=== PATIENT | female | born 1945 | race African-American/Black ===

== ENCOUNTER 2016-05-01 08:59 | Emergency (ER) | payer OTHER ==
[2016-05-01 09:18] VITALS: BP 90/54; PULSE 76; TEMP 98.2; BMI 18.8
--- NOTE | 2016-05-01 09:28 | PDOC ---
History of Present Illness - General Chief Complaint: Pain Stated Complaint: ANKLE Injury Time Seen by Provider: 05/01/16 09:14 History Source: Patient Exam Limitations: No Limitations - History of Present Illness Initial Comments: CHIEF COMPLAINT: 70 y/o afebrile female with PMH HTN, HLD, chronic pain, CAD with stents (on plavix) c/o left ankle pain. HISTORY OF PRESENT ILLNESS: The patient states she fell 3 days ago and her left ankle hit the floor. She can walk but she has pain on the outside of her left ankle. she denies swelling, f/c, redness to affected area. Vital signs on arrival are notable for BP of 90/54 REVIEW OF SYSTEMS: GENERAL/CONSTITUTIONAL: No fever/chills. No weakness. No weight change. HEAD, EYES, EARS, NOSE AND THROAT: No change in vision. No ear pain or discharge. No sore throat. MUSCULOSKELETAL: +left ankle pain. No neck or back pain. SKIN: No rash or easy bruising. NEUROLOGIC: No headache, vertigo, loss of consciousness, or loss of sensation. PHYSICAL EXAM: VITAL_SIGNS: within normal limits GENERAL_APPEARANCE: alert, cooperative, mild obvious discomfort with ambulation. The patient is able to ambulate with a slight limp. MENTAL_STATUS: speech clear, oriented X 3, responds appropriately to questions. NEURO: motor intact and sensory intact in injured extremity. EXTREMITIES: 2+ dorsalis pedis pulse left foot. Full flexion, extension, eversion and inversion of left ankle. Small ecchymotic area to left lateral malleolus that is TTP. No obvious deformities, swelling or erythema to affected foot/ankle. SKIN: warm, dry, good color. Past History - Past Medical History Allergies/Adverse Reactions: Allergies Allergy/AdvReac Type Severity Reaction Status Date / Time metoclopramide HCl AdvReac Verified 05/01/16 09:07 [From [facility]] Home Medications: Ambulatory Orders Ranitidine [Zantac -] 150 mg PO BID 04/23/15 FENTANYL 75mcg PATCH [DURAGESIC 75mcg PATCH -] 1 each TD Q72H 05/18/15 Oxycodone HCl [Oxycontin] 10 mg PO BID PRN 05/18/15 Mirtazapine [Remeron -] 15 mg PO DAILY #30 tablet 05/26/16 Zolpidem Tartrate [Ambien] 5 mg PO HS #30 tablet MDD 1 07/26/15 Aspirin [ASA -] 81 mg PO DAILY #30 tab.chew 12/06/15 Atazanavir Sulfate/Cobicistat [Evotaz 300 mg-150 mg Tablet] 1 each PO DAILY #30 tablet 12/06/15 Atorvastatin Ca [Lipitor] 20 mg PO HS #30 tablet 12/06/15 Carvedilol 3.125 mg PO BID #60 tablet 12/06/15 Clopidogrel Bisulfate [Plavix -] 75 mg PO DAILY #30 tablet 12/06/15 Dolutegravir Sodium [Tivicay] 50 mg PO DAILY #30 tablet 12/06/15 Gabapentin [Neurontin] 600 mg PO TID #90 tablet 12/06/15 Lisinopril 5 mg PO DAILY #30 tablet 12/06/15 Nicotine Patch [Nicoderm Patch -] 1 patch TD DAILY #42 patch 12/06/15 Wheat Dextrin [Benefiber] 2 scoop PO DAILY #1 bottle 03/06/16 Cyproheptadine [Periactin -] 4 mg PO HS #30 tablet 03/07/16 Anemia: No Asthma: No Cancer: No Cardiac Disorders: Yes (CAD, TRIPLE BYPASS) CVA: No COPD: No CHF: No Dementia: No Diabetes: No GI Disorders: Yes (GASTRITIS) Disorders: No HTN: Yes Hypercholesterolemia: Yes HIV: Yes Liver Disease: No Suicide Attempt (Hx): No Seizures: No Thyroid Disease: No - Surgical History Abdominal Surgery: No Appendectomy: No Cardiac Surgery: Yes (CABG 2009, TRIPLE BYPASS) Cholecystectomy: No Lung Surgery: No Neurologic Surgery: No Orthopedic Surgery: No - Immunization History Immunization Up to Date: Yes - Psycho/Social/Smoking Cessation Hx Anxiety: No Suicidal Ideation: No Smoking Status: Yes Smoking History: Current every day smoker Have you smoked in the past 12 months: Yes Number of Cigarettes Smoked Daily: 6 If you are a former smoker, when did you quit?: 2 MONTHS AGO Cigars Per Day: 0 Information on smoking cessation initiated: No 'Breaking Loose' booklet given: 05/19/15 Hx Alcohol Use: No Drug/Substance Use Hx: No Substance Use Type: None Hx Substance Use Treatment: No *Physical Exam - Vital Signs Last Vital Signs Temp Pulse Resp BP Pulse Ox 98.2 F 76 18 90/54 99 05/01/16 09:08 05/01/16 09:08 05/01/16 09:08 05/01/16 09:08 05/01/16 09:08 Medical Decision Making - Medical Decision Making A/P: 70 y/o female with possible bone bruise to left lateral malleolus. The patient takes many narcotics daily for pain so will not add any pain medication to her regimen. Will give ISAAC bandage and supportive care instructions. Will provide patient with referral to Ortho and instructed her to f/u in 1-2 weeks if no improvement in symptoms. The patient verbalizes understanding of all instructions, has no further questions and is awaiting discharge. *DC/Admit/Observation/Transfer Diagnosis at time of Disposition: Contusion of ankle Qualifiers: Encounter type: initial encounter Laterality: left Qualified Code(s): S90.02XA - Contusion of left ankle, initial encounter Traumatic ecchymosis of left ankle Qualifiers: Encounter type: initial encounter Qualified Code(s): S90.02XA - Contusion of left ankle, initial encounter - Discharge Dispostion Disposition: HOME Condition at time of disposition: Good - Referrals Referrals: Rolly Catalan MD [Staff Physician] - - Patient Instructions Printed Discharge Instructions: DI for Ankle Pain, How To Perform RICE (Rest, Ice, Compress, Elevate) Additional Instructions: Discharge Instructions: -Use ISAAC bandage as needed for support -Follow RICE instructions -Follow up with Dr. Catalan in 1-2 weeks if no improvement in symptoms
== END 2016-05-01 10:27 | disposition home or self-care (01) ==
LOC: JER 08:59
DX: S90.02XA Contusion of left ankle, initial encounter (principal); W19.XXXA Unspecified fall, initial encounter; Y93.89 Activity, other specified; Y92.89 Other specified places as the place of occurrence of the external cause; I25.10 Atherosclerotic heart disease of native coronary artery without angina pectoris; I10 Essential (primary) hypertension; Z95.1 Presence of aortocoronary bypass graft; Z95.5 Presence of coronary angioplasty implant and graft; E78.5 Hyperlipidemia, unspecified
CPT/HCPCS: 99281-25

== ENCOUNTER 2016-11-24 18:02 | Inpatient (IN) | payer OTHER ==
[2016-11-24] MEDS ORDERED: SODIUM CHLORIDE 1,000 ML IV STA ×2 (18:31→19:54)
[2016-11-24] MEDS ORDERED: ASPIRIN 81 MG CHEWABLE TABLETS PO ONE (18:31)
--- NOTE | 2016-11-24 18:31 | PDOC ---
History of Present Illness <Tamica Peter - Last Filed: 11/25/16 02:02> <Helena Peña - Last Filed: 11/25/16 02:08> - General Chief Complaint: Blood Pressure Problem Stated Complaint: BLOOD PRESSURE PROBLEM - History of Present Illness Initial Comments: 11/24/16 21:16 The patient is a 71 year old female, with a significant past medical history of CAD s/p CABG triple bypass, hypertension, HIV positive, who presents to the emergency department with persistent headache and right calf pain for 1 week with new onset of intermittent pain under her left breast today. The patient describes the pain in her right lower extremity as throbbing localized to the posterior right calf and anterior right rayo. She reports her headache as constant, behind her eyes radiating to the back of her head. She states she has been intermittently experiencing black spots when her headaches increase in intensity. Secondarily, she reports some diarrhea today and pain to her rectum which she attributes to internal hemorrhoids. She denies chest pain, shortness of breath, headache and dizziness. She denies fever, chills, nausea, vomit, diarrhea and constipation. She denies dysuria, frequency, urgency and hematuria. Allergies: NKDA Past surgical history: right breast biopsy, tubal ligation, stents to bilateral lower extremities PCP - Dr. Polanco Vascular - Dr. Boo Gifford Certifier - Dr. Susy Bowens (Helena Peña) Past History - Past Medical History Anemia: No Asthma: No Cancer: No Cardiac Disorders: Yes (triple bypass) CVA: No COPD: No CHF: No Dementia: No Diabetes: No GI Disorders: Yes (GASTRITIS) Disorders: No HTN: Yes Hypercholesterolemia: Yes Liver Disease: No Seizures: No Thyroid Disease: No - Surgical History Abdominal Surgery: No Appendectomy: No Cardiac Surgery: Yes (CABG 2009, TRIPLE BYPASS) Cholecystectomy: No Lung Surgery: No Neurologic Surgery: No Orthopedic Surgery: No - Immunization History Immunization Up to Date: Yes - Suicide/Smoking/Psychosocial Hx Smoking Status: Yes Smoking History: Current every day smoker Have you smoked in the past 12 months: Yes Number of Cigarettes Smoked Daily: 6 If you are a former smoker, when did you quit?: 2 MONTHS AGO Cigars Per Day: 0 Information on smoking cessation initiated: No 'Breaking Loose' booklet given: 05/19/15 Hx Alcohol Use: No Drug/Substance Use Hx: No Substance Use Type: None Hx Substance Use Treatment: No <Tamica Peter - Last Filed: 11/25/16 02:02> <Helena Peña - Last Filed: 11/25/16 02:08> - Past Medical History Allergies/Adverse Reactions: Allergies Allergy/AdvReac Type Severity Reaction Status Date / Time metoclopramide HCl AdvReac Verified 11/24/16 18:08 [From [facility]] Home Medications: Ambulatory Orders FENTANYL 75mcg PATCH [DURAGESIC 75mcg PATCH -] 1 each TD Q72H 05/18/15 Ranitidine [Zantac -] 150 mg PO BID #30 tab 06/19/16 Aspirin [ASA -] 81 mg PO DAILY #30 tab.chew 10/02/16 Atazanavir Sulfate/Cobicistat [Evotaz 300 mg-150 mg Tablet] 1 each PO DAILY #30 tablet 10/02/16 Carvedilol 3.125 mg PO BID #60 tablet 10/02/16 Clopidogrel Bisulfate [Plavix -] 75 mg PO DAILY #30 tablet 10/02/16 Dolutegravir Sodium [Tivicay] 50 mg PO DAILY #30 tablet 10/02/16 Gabapentin [Neurontin] 600 mg PO TID #90 tablet 10/02/16 Lisinopril 5 mg PO DAILY #30 tablet 10/02/16 Valacyclovir HCl [Valtrex -] 500 mg PO BID #60 tablet 10/02/16 Atorvastatin Ca [Lipitor] 40 mg PO HS #30 tablet 10/09/16 Cardiac Specific PMH - Complaint Specific PMHX Pacemaker: No <Tamica Peter - Last Filed: 11/25/16 02:02> Review of Systems <Tamica Peter - Last Filed: 11/25/16 02:02> - Review of Systems Able to Perform ROS?: Yes <Helena Peña - Last Filed: 11/25/16 02:08> - Review of Systems Comments:: 11/24/16 21:16 CONSTITUTIONAL: Absent: fever, chills, diaphoresis, generalized weakness, malaise, loss of appetite HEENT: Absent: rhinorrhea, nasal congestion, throat pain, throat swelling, difficulty swallowing, mouth swelling, ear pain, eye pain, visual Changes CARDIOVASCULAR: (+) pain under left breast. Absent: syncope, palpitations, irregular heart rate , lightheadedness, peripheral edema RESPIRATORY: Absent: cough, shortness of breath, dyspnea with exertion, orthopnea, wheezing, stridor, hemoptysis GASTROINTESTINAL: (+) diarrhea and painful hemorrhoids. Absent: abdominal pain, abdominal distension, nausea, vomiting, constipation, melena, hematochezia GENITOURINARY: Absent: dysuria, frequency, urgency, hesitancy, hematuria, flank pain, genital pain MUSCULOSKELETAL: (+) Right calf pain. Absent: arthralgia, joint swelling SKIN: Absent: rash, itching, pallor HEMATOLOGIC/IMMUNOLOGIC: Absent: easy bleeding, easy bruising, lymphadenopathy, frequent infections ENDOCRINE: Absent: unexplained weight gain, unexplained weight loss, heat intolerance, cold intolerance NEUROLOGIC: (+) headache, Absent: focal weakness or paresthesias, dizziness, unsteady gait, seizure, mentalvstatus changes, bladder or bowel incontinence PSYCHIATRIC: Absent: anxiety, depression, suicidal or homicidal ideation, hallucinations. (Helena Peña) *Physical Exam <Tamica Peter - Last Filed: 11/25/16 02:02> <Helena Peña - Last Filed: 11/25/16 02:08> - Vital Signs Last Vital Signs Temp Pulse Resp BP Pulse Ox 99.7 F H 70 16 92/58 100 11/24/16 19:41 11/24/16 23:09 11/24/16 23:09 11/24/16 23:09 11/24/16 23:09 - Physical Exam Comments: 11/24/16 21:18 GENERAL: Well developed, well nourished. Awake and alert. No acute distress. HEENT: Normocephalic, atraumatic. PERRLA, EOMI. No conjunctival pallor. Sclera are non- icteric. Moist mucous membranes. Oropharynx is clear. NECK: Supple. Full ROM. No JVD. Carotid pulses 2+ and symmetric, without bruits. No thyromegaly. No lymphadenopathy. CARDIOVASCULAR: Regular rate and rhythm. No murmurs, rubs, or gallops. Distal pulses are 2+ and symmetric. PULMONARY: No evidence of respiratory distress. Lungs clear to auscultation bilaterally. No wheezing, rales or rhonchi. ABDOMINAL: Soft. Non-tender. Non-distended. No rebound or guarding. No organomegaly. Normoactive bowel sounds. MUSCULOSKELETAL Normal range of motion at all joints. No bony deformities or tenderness. No CVA tenderness. EXTREMITIES: No cyanosis. No clubbing. No edema. No calf tenderness. SKIN: Warm and dry. Normal capillary refill. No rashes. No jaundice. NEUROLOGICAL: Alert, awake, appropriate. Cranial nerves 2-12 intact. Normoreflexic in the upper and lower extremities. Normal speech. Toes are down-going bilaterally. Gait is normal without ataxia. PSYCHIATRIC: Cooperative. Good eye contact. Appropriate mood and affect. (Helena Peña) ED Treatment Course - LABORATORY CBC & Chemistry Diagram: 11/24/16 19:10 11/24/16 18:46 <Tamica Peter - Last Filed: 11/25/16 02:02> - LABORATORY CBC & Chemistry Diagram: 11/24/16 19:10 11/24/16 18:46 <Helena Peña - Last Filed: 11/25/16 02:08> - ADDITIONAL ORDERS Additional order review: Laboratory Results 11/24/16 11/24/16 11/24/16 18:46 18:46 18:46 PT with INR 11.90 H INR 1.08 Sodium 138 Potassium 4.5 Chloride 106 Carbon Dioxide 24 Anion Gap 8 BUN 62 H D Creatinine 3.5 H D Creat Clearance w eGFR 12.91 Random Glucose 103 D Calcium 8.7 Magnesium 2.8 H D Total Bilirubin 0.9 D AST 29 D ALT 19 D Alkaline Phosphatase 65 Creatine Kinase 818 H Creatine Kinase Index 1.0 CK-MB (CK-2) 8.559 H Troponin I < 0.02 B-Natriuretic Peptide 334.85 H Total Protein 7.1 Albumin 3.5 Triglycerides 116 Cholesterol 126 D Total LDL Cholesterol 59 HDL Cholesterol 55 D Urine Color Yellow Urine Appearance Slcloudy Urine pH 5.0 Urine Protein Negative Urine Glucose (UA) Negative Urine Ketones Negative Urine Blood 1+ H Urine Nitrite Negative Urine Bilirubin Negative Urine Urobilinogen 4.0 e.u/dl H Urine RBC 2 Urine WBC 3 Ur Epithelial Cells Rare Urine Bacteria Rare Hyaline Casts 34 Urine Mucus Rare 11/24/16 19:10 RBC 3.48 L MCV 90.6 MCHC 34.4 RDW 14.3 MPV 7.5 Neutrophils % 66.6 D Lymphocytes % 14.8 D Monocytes % 15.2 H Eosinophils % 3.0 Basophils % 0.4 - RADIOLOGY Radiograph Interpretation: 11/25/16 02:08 Referring Physician: SAJI COCHRAN Patient Name: JENNA MENEZES THIS IS A PRELIMINARY REPORT FROM [facility] IMAGES: 168 EXAM DATE AND TIME: 2016-11-24 23:46:37 EXAM: CT HEAD WITHOUT CONTRAST No acute brain parenchymal abnormality. No hemorrhage, mass or acute territorial infarct. Age-related involutional changes and chronic small vessel ischemic changes. Minimal mucoperiosteal thickening paranasal sinuses. Visualized mastoid air cells clear. Vee Borrego M.D. 11/25/2016 01:00 EST (Helena Peña) - Medications Given in the ED: ED Medications Discontinued Medications Generic Name Dose Route Start Last Admin Trade Name Freq PRN Reason Stop Dose Admin Aspirin 162 mg 11/24/16 18:31 11/24/16 20:46 Asa - PO 11/24/16 18:32 162 mg ONCE ONE Administration Sodium Chloride 1,000 mls @ 1,000 mls/hr 11/24/16 18:31 11/24/16 19:00 Normal Saline - IV 11/24/16 19:30 1,000 mls/hr ASDIR STA Administration Sodium Chloride 1,000 mls @ 1,000 mls/hr 11/24/16 19:54 11/24/16 20:46 Normal Saline - IV 11/24/16 20:53 1,000 mls/hr ASDIR STA Administration Medical Decision Making <Tamica Peter - Last Filed: 11/25/16 02:02> <Helena Peña - Last Filed: 11/25/16 02:08> - Medical Decision Making 11/24/16 23:24 71-year-old female brought in by ambulance from home for headache, seeing floaters, and fleeting left chest pain. Upon arrival, her systolic blood pressure was 72. She describes the left-sided chest pain was fleeting and sharp. It is gone at this time. She reviewed review of systems he denied fever or chills or abdominal pain or shortness of breath Past medical history significant for coronary artery disease, CABG in 2009, HIV , diagnosed about 25 years ago with undetectable viral load I spoke with her infectious disease doctor, Dr. Villavicencio. The patient has not been placed on any new medications. Also she said her allergy nurse DR SUSY BOWENS did recent ECHO and stress test. I called him and spoke to Dr Lucas Hale who was covering. He didnt know the pt an d will have to get results from office Patient's rectal temp 99.7. EKG was normal sinus rhythm at 86 bpm with inverted T waves in V1 and V2 This is compared to an EKG done 06/18/2014 and there were no significant changes. In reviewing her labs, CBC is unremarkable. WBC is 9.5, hemoglobin 10.8 and her platelets were normal at 277,000 His review of her chemistries that she now has acute renal failure with a creatinine of 3.5, BUN of 62. In reviewing prior labs. Her last creatinine was 1.1 Her electrolytes are within normal limits and liver function tests are within normal limits. Her troponin is negative at 0.02 When I informed the pt that she needed to be admitted the patient she became somewhat emotional because she has custody of her grandchildren ages 17, 14, 6 and 5 years old. She was concerned about their care, but she was able to enlist another family member to take care of them and get them to school in the morning ct scan of head- no acute intracranial pahology 11/25/16 02:02 (Tamica Peter) 11/24/16 22:26 Dr. Polanco was paged via phone answering service at this time requesting a call back for doctor to doctor consult 11/24/16 23:17 Dr. Susy Bowens, Certifier, was paged via phone answering service at this time requesting a call back for doctor to doctor consult. 11/25/16 00:16 Dr. Hale, cardiology, returned the call at 00:10 and the patient's case was discussed. (Helena Peña) *DC/Admit/Observation/Transfer - Discharge Dispostion Admit: Yes <Tamica Peter - Last Filed: 11/25/16 02:02> <Helena Peña - Last Filed: 11/25/16 02:08> Diagnosis at time of Disposition: hiv positive, neuropathy Chest pain Qualifiers: Chest pain type: unspecified Qualified Code(s): R07.9 - Chest pain, unspecified Acute renal failure Qualifiers: Acute renal failure type: unspecified Qualified Code(s): N17.9 - Acute kidney failure, unspecified - Attestations Scribe Attestion: 11/24/16 21:19 Documentation prepared by Helena Peña, acting as medical stenographer for Tamica Peter MD (Helena Peña)
[2016-11-24 19:20] LABS: BASOPHIL 0.4 % (0-2.0); MCH 31.2 pg (25.7-33.7); MCHC 34.4 g/dl (32.0-36.0); MEAN CELL VOLUME 90.6 fl (80-96); MEAN PLT VOLUME 7.5 fl (7.5-11.1); NEUTROPHILS 66.6 % (42.8-82.8); PLATELET COUNT 277 K/MM3 (134-434); RDW 14.3 % (11.6-15.6); WHITE BLOOD COUNT 9.5 K/mm3 (4.0-10.0)
[2016-11-24 19:33] LABS: INR 1.08 (0.82-1.09); PROTHROMBIN TIME (PATIENT) 11.9 SEC (9.98-11.88)
[2016-11-24] MEDS ORDERED: LIDOCAINE HCL 2% JELLY 10 ML CARTRIDGE ONE (20:05)
[2016-11-24 20:07] LABS: ALBUMIN 3.5 g/dl (3.4-5.0); ANION GAP 8 (8-16); BILIRUBIN,TOTAL 0.9 mg/dL (0.2-1.0); CALCIUM 8.7 mg/dL (8.5-10.1); CHOLESTEROL 126 mg/dL (50-200); CO2 24 mmol/L (21-32); CREATININE 3.5 mg/dL (0.55-1.02); GLUCOSE,RANDOM 103 mg/dL (74-106); MAGNESIUM 2.8 mg/dL (1.8-2.4); SGOT/AST 29 U/L (15-37); TOT PROT 7.1 g/dl (6.4-8.2)
[2016-11-24 20:11] LABS: ALK PHOS 65 U/L (45-117); CPK 818 IU/L (26-192); SGPT/ALT 19 U/L (12-78); TROPONIN I < 0.02 ng/ml (0.00-0.05)
[2016-11-24] MEDS: LIDOCAINE HCL 2% JELLY 10 ML CARTRIDGE PR PRN (20:12)
[2016-11-24] MEDS ORDERED: ASPIRIN 81 MG CHEWABLE TABLETS ONE (20:41)
[2016-11-24 22:51] LABS: URINE APPEARANCE SLCLOUDY; URINE BILIRUBIN NEGATIVE (NEGATIVE); URINE BLOOD 1+ (NEGATIVE); URINE COLOR YELLOW; URINE GLUCOSE (UA) NEGATIVE (NEGATIVE); URINE KETONE NEGATIVE (NEGATIVE); URINE NITRITE NEGATIVE (NEGATIVE); URINE PROTEIN NEGATIVE (NEGATIVE); URINE UROBILINOGEN 4.0 E.U/dl mg/dL (0.2-1.0)
[2016-11-24 23:03] LABS: URINE LEUK ESTERASE 1+ (NEGATIVE)
[2016-11-24 23:17] LABS: URINE BACTERIA RARE /hpf (NONE SEEN); URINE HYALINE CAST 34 /lpf; URINE MUCUS RARE; URINE RBC 2 /hpf (0-3); URINE WBC 3 /hpf (3-5)
--- NOTE | 2016-11-25 00:26 | PN ---
Teaching Attending Note Name of Resident: Alpesh Kumar ATTENDING PHYSICIAN STATEMENT I saw and evaluated the patient. I reviewed the resident's note and discussed the case with the resident. I agree with the resident's findings and plan as documented. SUBJECTIVE: 71 yo F with pmhx of CAD s/p CABG triple bypass, PVD, HTN, HIv + on HAART, who presents with headache and "floaters" in her eye. Also with R. calf pain X1 week. P. states she had complete loss of vision momentarily yesterday and the it came back. Also, notes decreased oral intake of fluids and decreased urination. No current headache, chest pain or pressure. No Visual changes currently. OBJECTIVE: Physical: VS: Vital Signs Period Temp Pulse Resp BP Sys/Dupont Pulse Ox Last 24 Hr 99.1 F-99.7 F 70-90 16-18 72-92/35-58 98-100 GEN: NAD, Resting in bed, AA0X3, Able to speak full sentences HEENT: NCAT, PERRL, Throat without erythema or exudates CARD: I/ ARTIE, RRR S1, S2 RESP: CTAB ABD: BSX4, NTD to palpation EXT: - C/C/E, RLE +1 DP, LLE +2 DP NEURO: CN II-XII intact, MS+5/5 Bilat. U/Lext, Sensation intact. CBCD WBC 9.5 K/mm3 (4.0-10.0) D 11/24/16 19:10 RBC 3.48 M/mm3 (3.60-5.2) L 11/24/16 19:10 Hgb 10.8 GM/dL (10.7-15.3) D 11/24/16 19:10 Hct 31.5 % (32.4-45.2) L 11/24/16 19:10 MCV 90.6 fl (80-96) 11/24/16 19:10 MCHC 34.4 g/dl (32.0-36.0) 11/24/16 19:10 RDW 14.3 % (11.6-15.6) 11/24/16 19:10 Plt Count 277 K/MM3 (134-434) D 11/24/16 19:10 MPV 7.5 fl (7.5-11.1) 11/24/16 19:10 CMP Sodium 138 mmol/L (136-145) 11/24/16 18:46 Potassium 4.5 mmol/L (3.5-5.1) 11/24/16 18:46 Chloride 106 mmol/L (98-107) 11/24/16 18:46 Carbon Dioxide 24 mmol/L (21-32) 11/24/16 18:46 Anion Gap 8 (8-16) 11/24/16 18:46 BUN 62 mg/dL (7-18) H D 11/24/16 18:46 Creatinine 3.5 mg/dL (0.55-1.02) H D 11/24/16 18:46 Creat Clearance w eGFR 12.91 (>60) 11/24/16 18:46 Random Glucose 103 mg/dL (74-106) D 11/24/16 18:46 Calcium 8.7 mg/dL (8.5-10.1) 11/24/16 18:46 Total Bilirubin 0.9 mg/dL (0.2-1.0) D 11/24/16 18:46 AST 29 U/L (15-37) D 11/24/16 18:46 ALT 19 U/L (12-78) D 11/24/16 18:46 Alkaline Phosphatase 65 U/L (45-117) 11/24/16 18:46 Total Protein 7.1 g/dl (6.4-8.2) 11/24/16 18:46 Albumin 3.5 g/dl (3.4-5.0) 11/24/16 18:46 CARDIAC ENZYMES Creatine Kinase 818 IU/L (26-192) H 11/24/16 18:46 Troponin I < 0.02 ng/ml (0.00-0.05) 11/24/16 18:46 CT HEAD- EKG: ASSESSMENT AND PLAN: 71 F with pmhx of CAD s/p CABG, HTN, HIV on HAART, who presents with floaters in eye, CASTILLO, and right calf pain, being admitted for acute renal failure and possible TIA 1.) Headache with visual defecit DDx: TIA, complex migraine, less likley RArt occlusion - CT HEAD- Pending - ESR - Lipid panel - ECHO/Carotid US - If normal neuro berumen consider optho consult 2.) Acute Renal Failure - Possibly due to decreased po intake - U lytes - Renal US, if no improvement - Nephro consult - IVF- Gentle - Avoid Nephrotoxins- HOLD Sly-I 3.) Chest Pain/Hx of CAD s/p CABG- ATYPICAL - HEART 5 - Trend Trop/EKG - Hold BB and SLY-I 4.) Hypotension - Hold Anti-HTN meds for now 5.) RLE Pain - Duplex RLE 6.) HIV on HAART - ID consult for resumption 7.) DVT Ppx - Low Risk - SCD Place in Med-Tele
[2016-11-25] MEDS ORDERED: SODIUM CHLORIDE 1,000 ML IV SCH (02:15)
[2016-11-25] MEDS ORDERED: FLU VACCINE QUAD 60 MCG/0.5 ML (MDV 17-18) IM ONE (02:29)
[2016-11-25 02:30] VITALS: BMI 21.3
[2016-11-25 02:36] LABS: CPK 747 IU/L (26-192); TROPONIN I < 0.02 ng/ml (0.00-0.05)
--- NOTE | 2016-11-25 02:45 | HP ---
CHIEF COMPLAINT: Chest pain, right leg pain, headache, and visual changes. PCP: Dr. Polanco HISTORY OF PRESENT ILLNESS: Pt is a 71F with PMH CAD (s/o CABG x3), HTN, peripheral vascular disease (s/p stenting by Dr. Gifford), HIV (stable for the last 25yrs), and internal hemorrhoids who presented to the ED complaining of chest pain, right leg pain, headache, and visual changes. The patient's chest pain began yesterday, was sharp in character, located beneath the left breast, was not severe, not related to activity or breathing, and it resolved completely. Pt states it did not feel at all like the pain she felt with her previous heart disease. The patient's headache began about 3 days ago. It occurs randomly throughout the day, starts behind her right eye, and extends backward. The pain is 6/10 and associated with mild photophobia. It is not associated with nausea, vomiting , or fever. The patient's visual changes began around the same time as the headaches, though the two do not necessarily coincide. She began seeing dark spots floating in her visual field intermittently for the last three days. Yesterday, she experienced a brief complete loss of vision. Her vision returned soon thereafter, and has been fine since that time. The patient's right leg pain began approximately 1 week ago. It is sharp and burning, and strongly related to walking. Pt states she can walk a few blocks before getting pain. She gets the pain every time she walks farther than a few blocks, and she never gets this pain otherwise. The pain subsides with rest. ER course was notable for: (1) Head CT (results pending), EKG (unchanged from previous) (2) Tn neg x1, Hypotension (74/39 ), PINO (BUN 62 Mica Splitter 3.5 baseline 1) (3) Recent Travel: denies PAST MEDICAL HISTORY: CAD (s/o CABG x3), HTN, peripheral vascular disease, HIV (stable for the last 25yrs), and internal hemorrhoids PAST SURGICAL HISTORY: Social History: Smoking: Denies Alcohol: Denies Drugs: Denies Family History: Denies Allergies metoclopramide HCl [From Reglan] Adverse Reaction (Verified 11/24/16 18:08) SEVERE EXTRA PYRAMIDAL REACTIONS HOME MEDICATIONS: Home Medications Medication Instructions Recorded FENTANYL 75mcg PATCH [DURAGESIC 1 each TD Q72H 05/18/15 75mcg PATCH -] Ranitidine [Zantac -] 150 mg PO BID #30 tab 06/19/16 Aspirin [ASA -] 81 mg PO DAILY #30 tab.chew 10/02/16 Atazanavir Sulfate/Cobicistat 1 each PO DAILY #30 tablet 10/02/16 [Evotaz 300 mg-150 mg Tablet] Carvedilol 3.125 mg PO BID #60 tablet 10/02/16 Clopidogrel Bisulfate [Plavix -] 75 mg PO DAILY #30 tablet 10/02/16 Dolutegravir Sodium [Tivicay] 50 mg PO DAILY #30 tablet 10/02/16 Gabapentin [Neurontin] 600 mg PO TID #90 tablet 10/02/16 Lisinopril 5 mg PO DAILY #30 tablet 10/02/16 Valacyclovir HCl [Valtrex -] 500 mg PO BID #60 tablet 10/02/16 Atorvastatin Ca [Lipitor] 40 mg PO HS #30 tablet 10/09/16 REVIEW OF SYSTEMS CONSTITUTIONAL: 30lb unintentional weight loss in the last year Absent: fever, chills, diaphoresis, generalized weakness, malaise, loss of appetite, HEENT: rhinorrhea, nasal congestion, visual changes Absent: , throat pain, throat swelling, difficulty swallowing, mouth swelling, ear pain, eye pain, CARDIOVASCULAR: chest pain Absent: , syncope, palpitations, irregular heart rate, lightheadedness, peripheral edema RESPIRATORY: Absent: cough, shortness of breath, dyspnea with exertion, orthopnea, wheezing, stridor, hemoptysis GASTROINTESTINAL: Absent: abdominal pain, abdominal distension, nausea, vomiting, diarrhea, constipation, melena, hematochezia GENITOURINARY: dysuria, hesitancy Absent: , frequency, urgency,, hematuria, flank pain, genital pain MUSCULOSKELETAL: Absent: myalgia, arthralgia, joint swelling, back pain, neck pain SKIN: Absent: rash, itching, pallor HEMATOLOGIC/IMMUNOLOGIC: Absent: easy bleeding, easy bruising, lymphadenopathy, frequent infections ENDOCRINE: unexplained weight loss, Absent: unexplained weight gain, heat intolerance, cold intolerance NEUROLOGIC: headache Absent:, focal weakness or paresthesias, dizziness, unsteady gait, seizure, mental status changes, bladder or bowel incontinence PSYCHIATRIC: Absent: anxiety, depression, suicidal or homicidal ideation, hallucinations. PHYSICAL EXAMINATION GENERAL: Awake, alert, and fully oriented, in no acute distress. HEAD: Normal with no signs of trauma. EYES: Pupils equal, round and reactive to light, extraocular movements intact, sclera anicteric, conjunctiva clear. No lid lag. EARS, NOSE, THROAT: nares patent, oropharynx clear without exudates. Moist mucous membranes. equal elevation of palate NECK: Normal range of motion, supple without lymphadenopathy, JVD, or masses. no carotid bruits LUNGS: Breath sounds equal, clear to auscultation bilaterally. No wheezes, and no crackles. No accessory muscle use. HEART: Regular rate and rhythm, normal S1 and S2 without murmur, rub or gallop. ABDOMEN: Soft, nontender, not distended, normoactive bowel sounds, no guarding, no rebound, no masses. No hepatomegaly or splenomegaly. No suprapubic tenderness. No flank tenderness. MUSCULOSKELETAL: Normal range of motion at all joints. No bony deformities or tenderness. No CVA tenderness. UPPER EXTREMITIES: 2+ pulses, warm, well-perfused. No cyanosis. No clubbing. No peripheral edema. LOWER EXTREMITIES:1+ pulses, warm, well-perfused. No calf tenderness. No peripheral edema. Homman's sign neg. Felipe sign neg. NEUROLOGICAL: Cranial nerves II-XII intact. Normal speech. Normal gait. PSYCHIATRIC: Cooperative. Good eye contact. Appropriate mood and affect. SKIN: Warm, dry, normal turgor, no rashes or lesions noted, normal capillary refill. ASSESSMENT/PLAN: #atypical CP -unlikely cardiac. short lived, sharp, resolved, unlike pt's previous cardiac pain -Tn negx1. Trend -CK neg (CK-MB <4% of total CK) -EKG unchanged from previous -Lipids -echo -Cardiology consult #Hypotension -BP 72/35 on admission -etiology unclear -NS @ 50 (cautious hydration in pt with extensive cardiac history) #PINO -Mica Splitter 3.5 on baseline 1 -possibly 2/2 hypotension -gentle hydration -U lytes -Nephro consult -recommend considering bladder/renal US -Hold Lisinopril and Coreg for now #Headache -unclear etiology -ESR -f/u Head CT reults -tylenol PRN #Visual changes -possibly 2/2 hypotension/TIA/Amarosis fugax -visual espinoza normal at this time -f/u Head CT -consider neuro &/or ophtho consult in am #Claudication -History PAD with stents -right leg pain with walking -Duplex arterial and venous -consider Vasc surg consult depending on result of imaging #HTN -hold lisinopril and coreg in light of current low BP #HIV -ID consult to determine when to restart meds #Hemorrhoids -Preparation H -Sitz baths #FEN -1/2 NS @ 42 -lytes unremarkable -low sodium, low cholesterol diet #Dispo - admit to tele for ACS workup Alpesh Kumar MD PGY-1 Visit type - Emergency Visit Emergency Visit: No - New Patient This patient is new to me today: No - Critical Care Critical Care patient: No
[2016-11-25] MEDS: SODIUM CHLORIDE 0.45% 1,000 ML IV SCH (03:00)
[2016-11-25] MEDS: LIDOCAINE HCL 2% JELLY 10 ML CARTRIDGE PR PRN (03:25)
[2016-11-25] MEDS: HYDROCORTISONE 0.5% TOPICAL CREAM 30 GM TUBE TP PRN (03:25)
[2016-11-25] MEDS ORDERED: LIDOCAINE HCL 2% JELLY 10 ML CARTRIDGE PR PRN (05:46)
[2016-11-25 06:01] LABS: BASOPHIL 0.4 % (0-2.0); MCH 31.7 pg (25.7-33.7); MCHC 34.4 g/dl (32.0-36.0); MEAN PLT VOLUME 7.6 fl (7.5-11.1); NEUTROPHILS 64.7 % (42.8-82.8); PLATELET COUNT 246 K/MM3 (134-434); RDW 14.4 % (11.6-15.6); WHITE BLOOD COUNT 7.1 K/mm3 (4.0-10.0)
[2016-11-25 06:10] LABS: INR 1.04 (0.82-1.09); PROTHROMBIN TIME (PATIENT) 11.4 SEC (9.98-11.88)
[2016-11-25] MEDS: HEPARIN NA (PORCINE) 5,000 UNITS/ML 1ML VIAL SQ SCH ×3 (06:49→21:23)
[2016-11-25 07:12] LABS: ALBUMIN 2.6 g/dl (3.4-5.0); ANION GAP 10 (8-16); CALCIUM 7.6 mg/dL (8.5-10.1); CHOLESTEROL 105 mg/dL (50-200); CO2 23 mmol/L (21-32); CREATININE 2.2 mg/dL (0.55-1.02); GLUCOSE,RANDOM 93 mg/dL (74-106); MAGNESIUM 2.4 mg/dL (1.8-2.4); PHOSPHOROUS 3.8 mg/dL (2.5-4.9); SGOT/AST 24 U/L (15-37)
[2016-11-25 07:15] LABS: ALK PHOS 64 U/L (45-117); BILIRUBIN,TOTAL 0.4 mg/dL (0.2-1.0); CPK 620 IU/L (26-192); SGPT/ALT 17 U/L (12-78); TOT PROT 5.7 g/dl (6.4-8.2); TROPONIN I < 0.02 ng/ml (0.00-0.05)
--- NOTE | 2016-11-25 10:58 | EKG ---
Test Reason : Blood Pressure : / mmHG Vent. Rate : 086 BPM Atrial Rate : 086 BPM P-R Int : 162 ms QRS Dur : 086 ms QT Int : 380 ms P-R-T Axes : 074 050 070 degrees QTc Int : 454 ms NORMAL SINUS RHYTHM T WAVE INVERSION IN aVL WHEN COMPARED WITH ECG OF 18-MAY-2015 19:19, T WAVS ARE INVERTED IN aVL REPEAT EKG IF CLINICALLY INDICATED Confirmed by RUI BAIN MD ([id number] on 11/25/2016 10:58:19 AM Referred By: Confirmed By:RUI BIAN MD
--- NOTE | 2016-11-25 11:49 | PN ---
Progress Note (short form) - Note Progress Note: ID consult dictated imp/reccd 71 year old female with stable HIV-cd4 936, viral load undectable, CAD s/p cabg - followed by dr painter, history of chronic back pain and neuropathy, history of PAD- s/p bilateral lower extremity stenting by dr golden- on plavix now admitted with dizziness, visual changes that have resolve no fevers constiipation at home, bleeding from hemorrhoids last colonoscopy 2014 also noted left calf pain with ambulation only - started about a week ago no new meds has been on evotaz/tivicay since 07/2015 ARF of unclear etiology would get sonogram to r/o obstrucion as she is on reyataz which can cause stones Rhabdomyolysis-improving intermittent claudication- for arterial duplex- she is followed by Dr Golden HIV- would hold meds until renal function improves (d/w patient ) Problem List - Problems (1) Acute renal failure Code(s): N17.9 - ACUTE KIDNEY FAILURE, UNSPECIFIED Qualifiers: Acute renal failure type: unspecified Qualified Code(s): N17.9 - Acute kidney failure, unspecified (2) Rhabdomyolysis Code(s): M62.82 - RHABDOMYOLYSIS (3) HIV (human immunodeficiency virus infection) Code(s): Z21 - ASYMPTOMATIC HUMAN IMMUNODEFICIENCY VIRUS INFECTION STATUS
--- NOTE | 2016-11-25 16:10 | PN ---
Physical Exam: SUBJECTIVE: Patient seen and examined in the ICU. She denies any chest pain, dizziness or lightheadness. States she has been ambulating to the bathroom without difficulty. Has intermittent leg pain with ambulation. OBJECTIVE: Vital Signs Period Temp Pulse Resp BP Sys/[place] Pulse Ox Last 24 Hr 97.6 F-98.8 F 68-95 14-18 94-123/56-72 100-100 GENERAL: The patient is awake, alert, and fully oriented, in no acute distress. HEAD: Normal with no signs of trauma. EYES: PERRL, extraocular movements intact, sclera anicteric, conjunctiva clear. No ptosis. ENT: Ears normal, nares patent, oropharynx clear without exudates, moist mucous membranes. NECK: Trachea midline, full range of motion, supple. LUNGS: Breath sounds equal, clear to auscultation bilaterally, no wheezes, no crackles, no accessory muscle use. HEART: Regular rate and rhythm ABDOMEN: Soft, nontender, nondistended, normoactive bowel sounds, no guarding, no rebound, no hepatosplenomegaly, no masses. EXTREMITIES: 2+ pulses, warm, well-perfused, no edema. NEUROLOGICAL: Normal speech, gait not observed. PSYCH: Normal mood, normal affect. SKIN: Warm, dry, normal turgor, no rashes or lesions noted Laboratory Results - last 24 hr 11/25/16 11/25/16 11/25/16 02:00 03:00 05:00 WBC 7.1 RBC 2.95 L Hgb 9.4 L D Hct 27.2 L MCV 92.0 MCH 31.7 MCHC 34.4 RDW 14.4 Plt Count 246 MPV 7.6 Neutrophils % 64.7 Lymphocytes % 17.3 Monocytes % 13.6 H Eosinophils % 4.0 Basophils % 0.4 ESR PT with INR INR Sodium Potassium Chloride Carbon Dioxide Anion Gap BUN Creatinine Creat Clearance w eGFR Random Glucose Hemoglobin A1c % Calcium Phosphorus Magnesium Total Bilirubin AST ALT Alkaline Phosphatase Creatine Kinase 747 H Creatine Kinase Index 0.8 CK-MB (CK-2) 6.586 H Troponin I < 0.02 Total Protein Albumin Triglycerides Cholesterol Total LDL Cholesterol HDL Cholesterol Ur Random Sodium 50 Ur Random Potassium 16.2 Ur Random Chloride 15 11/25/16 11/25/16 11/25/16 05:00 05:00 05:00 WBC RBC Hgb Hct MCV MCH MCHC RDW Plt Count MPV Neutrophils % Lymphocytes % Monocytes % Eosinophils % Basophils % ESR 31 H PT with INR 11.40 INR 1.04 Sodium 144 Potassium 4.2 Chloride 111 H Carbon Dioxide 23 Anion Gap 10 BUN 50 H Creatinine 2.2 H D Creat Clearance w eGFR 22.07 Random Glucose 93 Hemoglobin A1c % Calcium 7.6 L Phosphorus 3.8 D Magnesium 2.4 Total Bilirubin 0.4 D AST 24 ALT 17 Alkaline Phosphatase 64 Creatine Kinase 620 H Creatine Kinase Index 0.8 CK-MB (CK-2) 5.141 H Troponin I < 0.02 Total Protein 5.7 L Albumin 2.6 L D Triglycerides 108 Cholesterol 105 Total LDL Cholesterol 56 HDL Cholesterol 44 Ur Random Sodium Ur Random Potassium Ur Random Chloride 11/25/16 05:00 WBC RBC Hgb Hct MCV MCH MCHC RDW Plt Count MPV Neutrophils % Lymphocytes % Monocytes % Eosinophils % Basophils % ESR PT with INR INR Sodium Potassium Chloride Carbon Dioxide Anion Gap BUN Creatinine Creat Clearance w eGFR Random Glucose Hemoglobin A1c % 5.0 D Calcium Phosphorus Magnesium Total Bilirubin AST ALT Alkaline Phosphatase Creatine Kinase Creatine Kinase Index CK-MB (CK-2) Troponin I Total Protein Albumin Triglycerides Cholesterol Total LDL Cholesterol HDL Cholesterol Ur Random Sodium Ur Random Potassium Ur Random Chloride Active Medications Generic Name Dose Route Start Last Admin Trade Name Freq PRN Reason Stop Dose Admin Heparin Sodium (Porcine) 5,000 unit 11/25/16 06:00 11/25/16 14:03 Heparin - SQ 5,000 unit TID KWESI Administration Hydrocortisone 1 applic 11/25/16 02:13 11/25/16 03:25 Hytone 0.5% Cream - TP 1 applic DAILY PRN Administration HEMORRHOIDS Sodium Chloride 1,000 mls @ 42 mls/hr 11/25/16 02:45 11/25/16 03:00 1/2 Normal Saline IV 42 mls/hr ASDIR KWESI Administration Lidocaine HCl 10 ml 11/25/16 05:46 11/25/16 12:20 Xylocaine 2% Uro-Jet ME 11/26/16 05:45 10 ml ONCE PRN Administration hemmorhoidal pain ASSESSMENT/PLAN: Patient is a 71 year old female with a significant past medical history of CAD s /p CABG triple bypass, hypertension and +HIV, She has a past surgical history of right breast biopsy, tubal ligation and stents to bilateral lower extremities. She presents to the ED on 11/25/2016 with complaints of a persistent headache for about 1 week, right calf pain with ambulation and left sided (under breast) pain. She reports her headache as constant, behind her eyes radiating to the back of her head. She states she has been intermittently experiencing black floating spots when her headaches increase in intensity. Patient described the lower ext pain as cramping and throbbing localized to the posterior right calf and anterior right rayo. She denies chest pain, shortness of breath, headache and dizziness. She denies fever, chills, nausea, vomiting or constipation. Neuro: Headache with visual deficit - now resolved A/P: TIA vs. migrane headache CT head negative Monitor lipid panel Carotid ultrasound: minimal thickening in the distal common carotid artery and bifurcation with a small to moderate sized calcified plaque at the right common cardotic birucation bulb as well as multple small to moderate sized plaques with calcification at the left common carotid, no evidence of hemodynamic significant stenosis She is a patient of Dr. Bowens and reports she had a recent echo Dr. Bowens consulted Will consult neurologist for patient's symptoms Will re start on ASA, on Plavix and Lipitor home meds Cardiology - rule out ACS Chest Pain resolved A/P: Heart score 5, troponins negative x 3 Holding beta blockers and perry On ASA and Plavix Cardiology consult Hypotension on admission - now resolved monitor vitals, hold cardiac meds Renal Acute Renal failure Patient reports multiple laxative use at home Bun/creat improving Nephrology consult /2 NS @ 42cc/hr HIV + A/P: Hypotensive on admission on pt with comprommised immune system Blood cultures sent, pending ID consulted for resumption of HAART, but meds on hold secondary to renal function Renal ultrasound pending Muscular/Skeletal A/p: intermittent claudication Vascular study pending She if followed by Balta for arterial duplex- she is followed by Dr Balta Zhang. Fluids: 1/2 NS @ 42cc Electrolytes: monitor Nutrition: low sodium diet Prophylaxis: DVT: heparin TID GI: Protonix
--- NOTE | 2016-11-25 17:30 | CONSULT ---
Consult Consult Specialty:: Nephrology Reason for Consultation:: PINO - History of Present Illness Chief Complaint: headache and chest discomfort History of Present Illness: Pt is a 71 year old female with pmhx of HTN, PVD, HIV, CAD and CABG who presents to the ER complaining of headache and chest pain. She also says that she had a change in her vision. She also complained of chest pressure that was on the left side. She denies fevers or chills. She was found to be in acute renal failure and I was called to evaluate her. She denies nsaid use. Pt also complained of right leg pain. She is awake and alert. She was found to be hypotensive in the ER. - History Source History Provided By: Patient, Medical Record - Past Medical History Cardio/Vascular: Yes: CAD, HTN, [place] Pulmonary: Yes: COPD Gastrointestinal: Yes: Gastritis Infectious Disease: Yes: HIV (contracted from her ex , no drug use or blood transfusions) Endocrine: Yes: Other (osteoporosis) - Past Surgical History Past Surgical History: Yes: CABG - Alcohol/Substance Use Hx Alcohol Use: No - Smoking History Smoking history: Current every day smoker Have you smoked in the past 12 months: Yes Aproximately how many cigarettes per day: 6 If you are a former smoker, when did you quit?: 2 MONTHS AGO - Social History Usual Living Arrangement: Other (raising her grandchildren) 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 History of Recent Travel: No Home Medications - Allergies Allergies/Adverse Reactions: Allergies Allergy/AdvReac Type Severity Reaction Status Date / Time metoclopramide HCl AdvReac Verified 11/24/16 18:08 [From [facility]] - Home Medications Home Medications: Ambulatory Orders FENTANYL 75mcg PATCH [DURAGESIC 75mcg PATCH -] 1 each TD Q72H 05/18/15 Ranitidine [Zantac -] 150 mg PO BID #30 tab 06/19/16 Aspirin [ASA -] 81 mg PO DAILY #30 tab.chew 10/02/16 Atazanavir Sulfate/Cobicistat [Evotaz 300 mg-150 mg Tablet] 1 each PO DAILY #30 tablet 10/02/16 Carvedilol 3.125 mg PO BID #60 tablet 10/02/16 Clopidogrel Bisulfate [Plavix -] 75 mg PO DAILY #30 tablet 10/02/16 Dolutegravir Sodium [Tivicay] 50 mg PO DAILY #30 tablet 10/02/16 Gabapentin [Neurontin] 600 mg PO TID #90 tablet 10/02/16 Lisinopril 5 mg PO DAILY #30 tablet 10/02/16 Valacyclovir HCl [Valtrex -] 500 mg PO BID #60 tablet 10/02/16 Atorvastatin Ca [Lipitor] 40 mg PO HS #30 tablet 10/09/16 Family Disease History - Family Disease History Family Disease History: Diabetes: Sister (2sisters; sister w/ ovarian cance ( diag. 30s, alive - age 60)), Heart Disease: Sister, CA: Brother (3Brothers; brother -head/neck ca - d. age 50-60s), Sister, Other: Brother Review of Systems - Review of Systems Constitutional: reports: Malaise Eyes: reports: Blind Spots, Blurred Vision, Recent Change in Vision HENT: reports: No Symptoms Neck: reports: No Symptoms Cardiovascular: reports: Chest Pain. denies: Edema, Shortness of Breath Respiratory: reports: No Symptoms Gastrointestinal: reports: No Symptoms Genitourinary: reports: No Symptoms Integumentary: reports: No Symptoms Neurological: reports: Headache Endocrine: reports: No Symptoms Hematology/Lymphatic: reports: No Symptoms Psychiatric: reports: No Symptoms Physical Exam Vital Signs: Vital Signs Temperature 98.4 F 11/25/16 14:00 Pulse Rate 66 11/25/16 14:00 Respiratory Rate 18 11/25/16 14:00 Blood Pressure 104/68 11/25/16 14:00 O2 Sat by Pulse Oximetry (%) 100 11/25/16 08:00 Constitutional: Yes: Calm Eyes: Yes: Conjunctiva Clear HENT: Yes: Atraumatic Neck: Yes: Supple Cardiovascular: Yes: S1 Respiratory: Yes: CTA Bilaterally Gastrointestinal: Yes: Normal Bowel Sounds, Soft Renal/: Yes: WNL Musculoskeletal: Yes: WNL Edema: No Neurological: Yes: Oriented Psychiatric: Yes: Oriented Labs: CBC, BMP 11/25/16 05:00 11/25/16 05:00 Selected Entries 11/24/16 11/24/16 18:09 19:41 Blood Pressure 72/35 Blood Pressure 80/54 [Right Arm] Laboratory Tests 11/24/16 11/24/16 11/24/16 18:46 18:46 19:10 WBC Hgb 10.8 D Plt Count 277 D Sodium Potassium Chloride Carbon Dioxide Anion Gap BUN 62 H D Creatinine 3.5 H D Magnesium 2.8 H D Creatine Kinase 818 H B-Natriuretic Peptide 334.85 H Urine Color Yellow Urine Appearance Slcloudy Urine pH 5.0 Ur Specific [place] 1.015 Urine Protein Negative Urine Glucose (UA) Negative Urine Ketones Negative Urine Blood 1+ H Urine Nitrite Negative Urine Bilirubin Negative Ur Random Sodium 11/25/16 11/25/16 11/25/16 02:00 03:00 05:00 WBC 7.1 Hgb 9.4 L D Plt Count 246 Sodium Potassium Chloride Carbon Dioxide Anion Gap BUN Creatinine Magnesium Creatine Kinase 747 H B-Natriuretic Peptide Urine Color Urine Appearance Urine pH Ur Specific [place] Urine Protein Urine Glucose (UA) Urine Ketones Urine Blood Urine Nitrite Urine Bilirubin Ur Random Sodium 50 11/25/16 05:00 WBC Hgb Plt Count Sodium 144 Potassium 4.2 Chloride 111 H Carbon Dioxide 23 Anion Gap 10 BUN 50 H Creatinine 2.2 H D Magnesium 2.4 Creatine Kinase 620 H B-Natriuretic Peptide Urine Color Urine Appearance Urine pH Ur Specific [place] Urine Protein Urine Glucose (UA) Urine Ketones Urine Blood Urine Nitrite Urine Bilirubin Ur Random Sodium Imaging - Results Chest X-ray: Report Reviewed Cat Scan: Report Reviewed Ultrasound: Report Reviewed Problem List - Problems (1) Acute renal failure Code(s): N17.9 - ACUTE KIDNEY FAILURE, UNSPECIFIED Qualifiers: Acute renal failure type: unspecified Qualified Code(s): N17.9 - Acute kidney failure, unspecified (2) Chest pain Code(s): R07.9 - CHEST PAIN, UNSPECIFIED Qualifiers: Chest pain type: unspecified Qualified Code(s): R07.9 - Chest pain, unspecified Assessment/Plan Current Medications Generic Name Dose Route Start Last Admin Trade Name Freq PRN Reason Stop Dose Admin Aspirin 81 mg 11/25/16 17:00 Asa - PO DAILY [facility] Atorvastatin Calcium 40 mg 11/25/16 22:00 Lipitor - PO HS KWESI Clopidogrel Bisulfate 75 mg 11/26/16 10:00 Plavix - PO DAILY KWESI Gabapentin 600 mg 11/25/16 22:00 Neurontin - PO TID KWESI Heparin Sodium (Porcine) 5,000 unit 11/25/16 06:00 11/25/16 14:03 Heparin - SQ 5,000 unit TID KWESI Administration Hydrocortisone 1 applic 11/25/16 02:13 11/25/16 03:25 Hytone 0.5% Cream - TP 1 applic DAILY PRN Administration HEMORRHOIDS Sodium Chloride 1,000 mls @ 42 mls/hr 11/25/16 02:45 11/25/16 03:00 1/2 Normal Saline IV 42 mls/hr ASDIR KWESI Administration Lidocaine HCl 10 ml 11/25/16 05:46 11/25/16 12:20 Xylocaine 2% Uro-Jet [place] 11/26/16 05:45 10 ml ONCE PRN Administration hemmorhoidal pain Pantoprazole Sodium 40 mg 11/26/16 10:00 Protonix - PO DAILY KWESI Impression 1. PINO 2. HIV 3. hx hypertension 4. hypotension 5. CAD 6. rhabdo Plan - check urine loom tuner and sodium - cont with fluids - negative hydro on ultrasound - cpk level is improving - renal function is improving - hypotension may have contributed to PINO - will follow Dr Ha
[2016-11-25] MEDS: ASPIRIN 81 MG CHEWABLE TABLETS PO SCH (18:10)
[2016-11-25] MEDS ORDERED: fentaNYL 75mcg/hr PATCH.TD72 TD SCH (21:00)
[2016-11-25] MEDS: GABAPENTIN 300 MG CAPSULE (FP) PO SCH (21:23)
[2016-11-25] MEDS ORDERED: ATORVASTATIN CA 40 MG TABLET (FP) PO SCH (22:00)
[2016-11-25] MEDS ORDERED: PATIENT'S OWN MEDICATION (NON-FORMULARY) (Gabapentin [Neurontin] 600 MG) PO SCH (22:00)
[2016-11-25] MEDS ORDERED: FENTANYL PATCH WASTE TD PRN (23:00)
[2016-11-26] MEDS: HEPARIN NA (PORCINE) 5,000 UNITS/ML 1ML VIAL SQ SCH ×2 (06:21→14:03)
[2016-11-26] MEDS: GABAPENTIN 300 MG CAPSULE (FP) PO SCH ×2 (06:21→14:04)
[2016-11-26] MEDS: SODIUM CHLORIDE 0.45% 1,000 ML IV SCH (06:21)
--- NOTE | 2016-11-26 07:26 | CONS ---
DATE OF CONSULTATION: DATE OF DICTATION: 11/25/2016 HISTORY OF PRESENT ILLNESS: This is a 71-year-old woman who I know well from the [facility] where I take care of her. She has a past medical history of very stable HIV diagnosed in 1990, has been suppressed for years. She is being managed most recently on Evotaz and Tivicay for the last 15 months with viral suppression, who has also a history of coronary artery disease and peripheral arterial disease. She presented to the emergency room yesterday complaining of weakness. She has had stabbing chest pain that has resolved. She had a week of dizziness at home. She was complaining of constipation. She took laxatives at home in an effort to have a bowel movement. She has external hemorrhoids and noted blood in her stools. She presented yesterday complaining of all these things including dizziness, but no fevers or chills, and was found to be hypotensive with acute renal failure. She is currently on telemetry where she reports that she is feeling much better. She had some transient visual symptoms where she saw some floaters and some transient headache, all of which have resolved with improvement in her blood pressure. She currently reports her vision is back to normal. ALLERGIES: She is allergic to REGLAN. . MEDICATIONS: As an outpatient include aspirin, Coreg, atazanavir, cobicistat (which is Evotaz), atorvastatin, lisinopril, gabapentin, Plavix, Tivicay and Valtrex. She is also on a fentanyl patch for pain. PAST MEDICAL HISTORY: Notable for history of coronary artery disease, hypertension, hypocholesterolemia, gastritis. She has been HIV positive since 1990. SURGICAL HISTORY: Notable for CABG in 2009. She had a triple bypass. She is followed by Dr. Bowens. She has had a breast biopsy in the past. She has had colonoscopy and upper endoscopy. She has had tubal ligation. She had an intraabdominal abscess that was drained by IR, and she has had bilateral angioplasties of her lower extremities. She had osteomyelitis of the big toe of her right foot that was treated medically with good results. FAMILY HISTORY: Notable for diabetes in her sister, there was heart disease in the sister, and a brother with head and neck cancer. SOCIAL HISTORY: She still smokes several cigarettes a day. She lives at home and she takes care of her 4 grandchildren. 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 REVIEW OF SYSTEMS: Notable for resolution of her headache, resolution of her vision changes. She notes that she has left calf pain with ambulation only which started about a week ago. Her last colonoscopy was in 2014. PHYSICAL EXAMINATION General: She is awake and alert. Vital signs: Temperature is 98.8; pulse is 73, blood pressure is 100/56, respiratory rate 16. HEENT: She is normocephalic. Her eyes are anicteric. Neck: Supple. Lungs: Clear to auscultation. Heart: Regular rate and rhythm. Abdomen: Soft, nontender. Extremities: Without edema. Skin: She has no skin breakdown. DIAGNOSTIC DATA: Her white count is 7.1, hemoglobin 9.4, platelets are 246. INR is 1. On admission BUN 62, creatinine 3.5. This morning, BUN 50, creatinine 2.2. LFTs are normal. CPK 818 on admission, but this morning it is 620. Troponins negative. Urinalysis notable for hyaline casts and 3 white cells. Her T-cells from September are 936 with a suppressed viral load. Imaging includes a head CT that was done in the emergency room which showed no evidence of acute intracranial process, and she had a chest x-ray that showed no acute lung disease. SUMMARY: 1. This is a 71-year-old woman with acute renal failure of unclear etiology accompanied by hypotension. She does not appear to have had enough diarrhea to explain this. The etiology is not clear. As well, she has mild rhabdomyolysis, which is improving. Would suggest we get a sonogram to rule out obstruction as she is on Reyataz, which can cause stones. 2. Rhabdomyolysis, which is improving. 3. Intermittent claudication. She is scheduled for arterial duplex. She is followed by Dr. Gifford and has had stents placed in both her legs. 4. Human immunodeficiency virus. She has been very stable on her human immunodeficiency virus medications. Would hold her medications until her renal function improves. This was discussed with the patient who has brought her mediations with her and is agreeable to waiting. NEO MCELROY M.D. [id number]
[2016-11-26 08:58] LABS: BASOPHIL 0.8 % (0-2.0); EOSINOPHIL 5.4 % (0-4.5); MCH 30.5 pg (25.7-33.7); MCHC 33.2 g/dl (32.0-36.0); MEAN CELL VOLUME 91.7 fl (80-96); MEAN PLT VOLUME 6.9 fl (7.5-11.1); PLATELET COUNT 258 K/MM3 (134-434); RDW 14.7 % (11.6-15.6); WHITE BLOOD COUNT 5.2 K/mm3 (4.0-10.0)
[2016-11-26] MEDS: HYDROCORTISONE 0.5% TOPICAL CREAM 30 GM TUBE TP PRN (09:00)
[2016-11-26 09:20] LABS: ALBUMIN 2.9 g/dl (3.4-5.0); ANION GAP 7 (8-16); CALCIUM 8.8 mg/dL (8.5-10.1); CO2 26 mmol/L (21-32); GLUCOSE,RANDOM 99 mg/dL (74-106); SGOT/AST 21 U/L (15-37); SGPT/ALT 19 U/L (12-78)
[2016-11-26 09:22] LABS: ALK PHOS 59 U/L (45-117); BILIRUBIN,TOTAL 0.2 mg/dL (0.2-1.0); TOT PROT 6.4 g/dl (6.4-8.2)
[2016-11-26] MEDS: ASPIRIN 81 MG CHEWABLE TABLETS PO SCH (09:30)
[2016-11-26] MEDS ORDERED: CLOPIDOGREL BISULFATE 75 MG TABLET (FP) PO SCH (10:00)
[2016-11-26] MEDS ORDERED: BENZOCAINE 28 GM HEMORRHOIDAL OINTMENT PR ONE (10:00)
[2016-11-26] MEDS ORDERED: PANTOPRAZOLE 40 MG TABLET (FP) PO SCH (10:00)
--- NOTE | 2016-11-26 10:17 | CON.NEURO ---
Consult - History of Present Illness History of Present Illness: Pt is a 71F with PMH CAD (s/o CABG x3), HTN, peripheral vascular disease (s/p stenting by Dr. Gifford), HIV (stable for the last 25yrs), and internal hemorrhoids who presented to the ED complaining of chest pain, right leg pain, headache, and visual changes. The patient's headache x 3 days . It occurs randomly throughout the day, starts behind her right eye, and extends backward. The pain is 6/10 and associated with mild photophobia. It is not associated with nausea, vomiting, or fever. The patient's visual changes began around the same time as the headaches, though the two do not necessarily coincide. She began seeing dark spots floating in her visual field intermittently for the last three days. Yesterday, she experienced a brief complete loss of vision. Her vision returned soon thereafter, and has been fine since that time. feels CASTILLO betetr now. HD CT (-); ESR 31 The patient's right leg pain began approximately 1 week ago. It is sharp and burning, and strongly related to walking. Pt states she can walk a few blocks before getting pain. She gets the pain every time she walks farther than a few blocks, and she never gets this pain otherwise. The pain subsides with rest. hx of neuropathy ; has walked without pain today; longstanding backpain. - Past Medical History Cardio/Vascular: Yes: CAD, HTN, [place] Pulmonary: Yes: COPD Gastrointestinal: Yes: Gastritis Infectious Disease: Yes: HIV (contracted from her ex , no drug use or blood transfusions) Endocrine: Yes: Other (osteoporosis) - Past Surgical History Past Surgical History: Yes: CABG - Alcohol/Substance Use Hx Alcohol Use: No - Smoking History Smoking history: Current every day smoker Have you smoked in the past 12 months: Yes Aproximately how many cigarettes per day: 6 If you are a former smoker, when did you quit?: 2 MONTHS AGO - Social History Usual Living Arrangement: Other (raising her grandchildren) 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 History of Recent Travel: No Home Medications - Allergies Allergies/Adverse Reactions: Allergies Allergy/AdvReac Type Severity Reaction Status Date / Time metoclopramide HCl AdvReac Verified 11/24/16 18:08 [From [facility]] - Home Medications Home Medications: Ambulatory Orders FENTANYL 75mcg PATCH [DURAGESIC 75mcg PATCH -] 1 each TD Q72H 05/18/15 Ranitidine [Zantac -] 150 mg PO BID #30 tab 06/19/16 Aspirin [ASA -] 81 mg PO DAILY #30 tab.chew 10/02/16 Atazanavir Sulfate/Cobicistat [Evotaz 300 mg-150 mg Tablet] 1 each PO DAILY #30 tablet 10/02/16 Carvedilol 3.125 mg PO BID #60 tablet 10/02/16 Clopidogrel Bisulfate [Plavix -] 75 mg PO DAILY #30 tablet 10/02/16 Dolutegravir Sodium [Tivicay] 50 mg PO DAILY #30 tablet 10/02/16 Gabapentin [Neurontin] 600 mg PO TID #90 tablet 10/02/16 Lisinopril 5 mg PO DAILY #30 tablet 10/02/16 Valacyclovir HCl [Valtrex -] 500 mg PO BID #60 tablet 10/02/16 Atorvastatin Ca [Lipitor] 40 mg PO HS #30 tablet 10/09/16 Family Disease History - Family Disease History Family Disease History: Diabetes: Sister (2sisters; sister w/ ovarian cance ( diag. 30s, alive - age 60)), Heart Disease: Sister, CA: Brother (3Brothers; brother -head/neck ca - d. age 50-60s), Sister, Other: Brother Physical Exam-Neuro Vital Signs: Vital Signs Temperature 98.4 F 11/26/16 10:00 Pulse Rate 67 11/26/16 10:00 Respiratory Rate 20 11/26/16 10:00 Blood Pressure 99/64 11/26/16 10:00 O2 Sat by Pulse Oximetry (%) 100 11/25/16 20:21 Labs: CBC, BMP 11/26/16 08:30 11/26/16 08:30 INR, PTT INR 1.04 (0.82-1.09) 11/25/16 05:00 - Neuro Exam Level Of Consciousness: Yes: Alert, Oriented to Person (EOMi, no facial, no dysrthria, motor 5/5, no drift, reflexes reduced) Problem List - Problems (2) Headache Code(s): R51 - HEADACHE Assessment/Plan 71F with PMH CAD (s/o CABG x3), HTN, peripheral vascular disease (s/p stenting by Dr. Gifford), HIV (stable for the last 25yrs), and internal hemorrhoids who presented to the ED complaining of chest pain, right leg pain, headache, and visual changes. CASTILLO better - HD CT (-); ESR 31 , CASTILLO ; visual changes likely from low BP. R leg pain possible from neuropathy +/- LS stenosis, no focal weakness, can FU with is an outpt thanks Dr Garcia [phone]
[2016-11-26 10:27] LABS: CPK 371 IU/L (26-192)
--- NOTE | 2016-11-26 10:42 | CONSULT ---
Admitting History and Physical - Primary Care Physician PCP: Shree Dickerson - Admission History of Present Illness: Per EMR: Patient is a 71 year old female with a significant past medical history of CAD s /p CABG triple bypass, hypertension and +HIV, She has a past surgical history of right breast biopsy, tubal ligation and stents to bilateral lower extremities. She presents to the ED on 11/25/2016 with complaints of a persistent headache for about 1 week, right calf pain with ambulation and left sided (under breast) pain. She reports her headache as constant, behind her eyes radiating to the back of her head. She states she has been intermittently experiencing black floating spots when her headaches increase in intensity. Patient described the lower ext pain as cramping and throbbing localized to the posterior right calf and anterior right rayo. CT head-(-) Selected Entries 11/26/16 11/26/16 11/26/16 02:00 06:00 09:24 Breakfast 100% Temperature 97.6 F 98.2 F 11/26/16 10:00 Breakfast Temperature 98.4 F Laboratory Tests 11/26/16 08:30 WBC 5.2 History Source: Patient Limitations to Obtaining History: No Limitations - Past Medical History Cardiovascular: Yes: CAD, HTN, [place] Pulmonary: Yes: COPD Gastrointestinal: Yes: Gastritis Infectious Disease: Yes: HIV (contracted from her ex , no drug use or blood transfusions) Endocrine: Yes: Other (osteoporosis) - Past Surgical History Past Surgical History: Yes: CABG - Smoking History Smoking history: Current every day smoker Have you smoked in the past 12 months: Yes Aproximately how many cigarettes per day: 6 If you are a former smoker, when did you quit?: 2 MONTHS AGO - Alcohol/Substance Use Hx Alcohol Use: No - Social History 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 History of Recent Travel: No History - Admission Reason For Visit: CHEST PAIN ACUTE RENAL FAILURE HIV - Diagnostics X-ray: Report Reviewed CT Scan: Report Reviewed (head (-)) - General Mental Status: Alert and Oriented, Awake and Alert, Able to Follow Commands Attention: Intact Ability to Follow Directions: Excellent Head/Neck Control: WFL - Hearing Hearing: Normal Speech Evaluation - Communication Primary Language: MOHAWK Communication: Yes: Within Normal Limits Oral Expression Ability: Yes: No Impairment - Speech Production Able to Make Needs Known: Yes: WNL Intelligibility: Yes: WNL - Speech Characteristics Voice Loudness: Normal Voice Pitch: Yes: Normal Voice Phonatory-based Quality: Yes: Normal Speech Pattern: Normal Speech Clarity: < 100% Nasal Resonance: Normal Articulation: Yes: Precise Rate of Speech: Intact - Language/Auditory Comprehension Follows: Yes: 2 Stage Simple Commands Observation: Able to respond to yes/no queries: Yes, Yes/No Confusion: No, Comprehends Conversational Speech: Yes, Benefits from Slow Speech: No, Benefits from Repetiton: No, Benefits from Increased Volume of Speech: No - Language/Verbal Expression Able to Respond to Simple Queries: Yes: WNL Able to Communicate Wants and Needs: Yes: WNL Functional Communication Status: Yes: WNL Attention: Yes: Intact - Memory/Perception senior care Memory: Yes: WNL Short Term Memory: Yes: WNL - Swallow Evaluation/Bedside Assessment Current Nutritional Intake: Regular, Thin Liquids Oral Secretions: Yes: WFL Dentition: Yes: Edentulous (lower. Has lower dentures at home that are loose and hurt. She does not use them.), Dental Appliance Upper Facial Symmetry at Rest: Facial Droop Right (slight assymetry, baseline?) Facial Symmetry on Retraction: Symmetrical Facial Movement: Controlled Sensation: Normal Against Resistance Opening: Normal Against Resistance Closing: Normal Pucker Lips: Normal Smile: Normal Lingual Movement: Normal, Symmetric Lingual Speed of Movement: Normal Lingual Movement Strgth Against Opposition: Normal Lingual Movement Characteristics: Normal Velopharyngeal Movement: Normal Laryngeal Elevation: WFL Laryngeal Movement: Able to Palpate Rate of Intake: WFL Bolus Size: WFL Chewing: WFL Oral Prep Time: WFL A-P Transit: WFL Pocketing: None Timing of Swallow: WFL Coughing/Throat Clear: No Change in Voice: No Recommendations - Speech Evaluation, Impression/Plan Impression: Speech production, language,cognition, swallowing are intact. - Dysphagia Impressions/Plan Swallowing Skills: WF Dysphagia Impressions: No Impairment *Silent aspiration: cannot be R/O at bedside Dysphagia Treatment Plan: OOB for meals (if medically stable) - Recommendations Diet Consistency: Regular Medication Administration: Whole with water Liquids: Thin Liquids
[2016-11-26] MEDS ORDERED: LIDOCAINE HCL 2% JELLY (30 ML/TUBE) TP ONE (11:03)
[2016-11-26] MEDS ORDERED: PT OWN MED DRAWER 7, Y5N ONE (11:37)
[2016-11-26] MEDS ORDERED: LIDOCAINE HCL 2% JELLY (5 ML/TUBE) TP ONE (11:45)
[2016-11-26] MEDS ORDERED: LIDOCAINE HCL 2% JELLY 10 ML CARTRIDGE RC ONE (12:30)
[2016-11-26] MEDS ORDERED: SODIUM CHLORIDE 0.45% 1,000 ML IV SCH (13:46)
--- NOTE | 2016-11-26 13:46 | PN ---
Progress Note, Physician History of Present Illness: Pt seen and examined at bedside. She is more awake and alert today. She denies dysuria or hematuria. - Current Medication List Current Medications: Active Medications Aspirin (Asa -) 81 mg PO DAILY [facility] Last Admin: 11/26/16 09:30 Dose: 81 mg Atorvastatin Calcium (Lipitor -) 40 mg PO HS [facility] Last Admin: 11/25/16 21:23 Dose: 40 mg Clopidogrel Bisulfate (Plavix -) 75 mg PO DAILY [facility] Last Admin: 11/26/16 09:30 Dose: 75 mg Fentanyl (Duragesic 75mcg Patch -) 1 patch TD Q72H [facility] Last Admin: 11/25/16 21:23 Dose: 1 patch Gabapentin (Neurontin -) 600 mg PO TID [facility] Last Admin: 11/26/16 06:21 Dose: 600 mg Heparin Sodium (Porcine) (Heparin -) 5,000 unit SQ TID [facility] Last Admin: 11/26/16 06:21 Dose: 5,000 unit Hydrocortisone (Hytone 0.5% Cream -) 1 applic TP DAILY PRN PRN Reason: HEMORRHOIDS Last Admin: 11/26/16 09:00 Dose: 1 applic Sodium Chloride (1/2 Normal Saline) 1,000 mls @ 42 mls/hr IV ASDIR [facility] Last Admin: 11/26/16 06:21 Dose: 42 mls/hr Miscellaneous (Duragesic Patch Waste) 1 each TD PRN PRN Pantoprazole Sodium (Protonix -) 40 mg PO DAILY [facility] Last Admin: 11/26/16 09:30 Dose: 40 mg - Objective Vital Signs: Vital Signs Temperature 98.4 F 11/26/16 10:00 Pulse Rate 67 11/26/16 10:00 Respiratory Rate 20 11/26/16 10:00 Blood Pressure 99/64 11/26/16 10:00 O2 Sat by Pulse Oximetry (%) 100 11/26/16 09:00 Constitutional: Yes: Calm Eyes: Yes: Conjunctiva Clear HENT: Yes: Atraumatic Neck: Yes: Supple Cardiovascular: Yes: S1, S2 Respiratory: Yes: CTA Bilaterally Gastrointestinal: Yes: Normal Bowel Sounds Genitourinary: Yes: WNL Edema: No Neurological: Yes: Oriented Psychiatric: Yes: Oriented Labs: CBC, BMP 11/26/16 08:30 11/26/16 08:30 INR, PTT INR 1.04 (0.82-1.09) 11/25/16 05:00 Problem List - Problems (1) Acute renal failure Code(s): N17.9 - ACUTE KIDNEY FAILURE, UNSPECIFIED Qualifiers: Acute renal failure type: unspecified Qualified Code(s): N17.9 - Acute kidney failure, unspecified (2) Chest pain Code(s): R07.9 - CHEST PAIN, UNSPECIFIED Qualifiers: Chest pain type: unspecified Qualified Code(s): R07.9 - Chest pain, unspecified Assessment/Plan Current Medications Generic Name Dose Route Start Last Admin Trade Name Freq PRN Reason Stop Dose Admin Aspirin 81 mg 11/25/16 17:00 11/26/16 09:30 Asa - PO 81 mg DAILY KWESI Administration Atorvastatin Calcium 40 mg 11/25/16 22:00 11/25/16 21:23 Lipitor - PO 40 mg HS KWESI Administration Clopidogrel Bisulfate 75 mg 11/26/16 10:00 11/26/16 09:30 Plavix - PO 75 mg DAILY KWESI Administration Fentanyl 1 patch 11/25/16 21:00 11/25/16 21:23 Duragesic 75mcg Patch - TD 1 patch Q72H KWESI Administration Gabapentin 600 mg 11/25/16 22:00 11/26/16 06:21 Neurontin - PO 600 mg TID KWESI Administration Heparin Sodium (Porcine) 5,000 unit 11/25/16 06:00 11/26/16 06:21 Heparin - SQ 5,000 unit TID KWESI Administration Hydrocortisone 1 applic 11/25/16 02:13 11/26/16 09:00 Hytone 0.5% Cream - TP 1 applic DAILY PRN Administration HEMORRHOIDS Sodium Chloride 1,000 mls @ 42 mls/hr 11/25/16 02:45 11/26/16 06:21 1/2 Normal Saline IV 42 mls/hr ASDIR KWESI Administration Miscellaneous 1 each 11/25/16 23:00 Duragesic Patch Waste TD PRN PRN Pantoprazole Sodium 40 mg 11/26/16 10:00 11/26/16 09:30 Protonix - PO 40 mg DAILY KWESI Administration Impression 1. PINO 2. HIV 3. hx hypertension 4. hypotension 5. CAD 6. rhabdo Plan - renal function is improved - cpk level is improved - can decrease rate of fluids - repeat labs in am - monitor blood pressure - hypotension may have contributed to PINO - will follow Dr Ha
--- NOTE | 2016-11-26 13:50 | EKG ---
Test Reason : Blood Pressure : / mmHG Vent. Rate : 062 BPM Atrial Rate : 062 BPM P-R Int : 168 ms QRS Dur : 094 ms QT Int : 414 ms P-R-T Axes : 070 047 067 degrees QTc Int : 420 ms NORMAL SINUS RHYTHM NORMAL ECG WHEN COMPARED WITH ECG OF 24-NOV-2016 18:23, NO SIGNIFICANT CHANGE WAS FOUND Confirmed by DANYELLE GRIMES MD ([id number]) on 11/26/2016 1:49:48 PM [facility] Confirmed By:DANYELLE GRIMES MD
[2016-11-26 14:07] VITALS: PULSE 68
[2016-11-26 14:17] VITALS: BP 102/62; TEMP 98.7
--- NOTE | 2016-11-26 15:32 | PN ---
Progress Note, Physician History of Present Illness: Pt is a 71F with PMH CAD (s/o CABG x3), HTN, peripheral vascular disease (s/p stenting by Dr. Gifford), HIV (stable for the last 25yrs), and internal hemorrhoids who presented to the ED complaining of chest pain, right leg pain, headache, and visual changes. The patient's chest pain began yesterday, was sharp in character, located beneath the left breast, was not severe, not related to activity or breathing, and it resolved completely. Pt states it did not feel at all like the pain she felt with her previous heart disease. The patient's headache began about 3 days ago. It occurs randomly throughout the day, starts behind her right eye, and extends backward. The pain is 6/10 and associated with mild photophobia. It is not associated with nausea, vomiting , or fever. The patient's visual changes began around the same time as the headaches, though the two do not necessarily coincide. She began seeing dark spots floating in her visual field intermittently for the last three days. Yesterday, she experienced a brief complete loss of vision. Her vision returned soon thereafter, and has been fine since that time. The patient's right leg pain began approximately 1 week ago. It is sharp and burning, and strongly related to walking. Pt states she can walk a few blocks before getting pain. She gets the pain every time she walks farther than a few blocks, and she never gets this pain otherwise. The pain subsides with rest. ER course was notable for: (1) Head CT (results pending), EKG (unchanged from previous) (2) Tn neg x1, Hypotension (74/39 ), PINO (BUN 62 Shooter'S Helper 3.5 baseline 1) (3) - Current Medication List Current Medications: Active Medications Aspirin (Asa -) 81 mg PO DAILY [facility] Last Admin: 11/26/16 09:30 Dose: 81 mg Atorvastatin Calcium (Lipitor -) 40 mg PO HS [facility] Last Admin: 11/25/16 21:23 Dose: 40 mg Clopidogrel Bisulfate (Plavix -) 75 mg PO DAILY [facility] Last Admin: 11/26/16 09:30 Dose: 75 mg Fentanyl (Duragesic 75mcg Patch -) 1 patch TD Q72H [facility] Last Admin: 11/25/16 21:23 Dose: 1 patch Gabapentin (Neurontin -) 600 mg PO TID [facility] Last Admin: 11/26/16 14:04 Dose: 600 mg Heparin Sodium (Porcine) (Heparin -) 5,000 unit SQ TID [facility] Last Admin: 11/26/16 14:03 Dose: 5,000 unit Hydrocortisone (Hytone 0.5% Cream -) 1 applic TP DAILY PRN PRN Reason: HEMORRHOIDS Last Admin: 11/26/16 09:00 Dose: 1 applic Sodium Chloride (1/2 Normal Saline) 1,000 mls @ 35 mls/hr IV ASDIR [facility] Last Admin: 11/26/16 14:04 Dose: 35 mls/hr Miscellaneous (Duragesic Patch Waste) 1 each TD PRN PRN Pantoprazole Sodium (Protonix -) 40 mg PO DAILY [facility] Last Admin: 11/26/16 09:30 Dose: 40 mg - Objective Vital Signs: Vital Signs Temperature 98.7 F 11/26/16 14:00 Pulse Rate 68 11/26/16 14:00 Respiratory Rate 22 11/26/16 14:00 Blood Pressure 102/62 11/26/16 14:00 O2 Sat by Pulse Oximetry (%) 100 11/26/16 09:00 Labs: CBC, BMP 11/26/16 08:30 11/26/16 08:30 INR, PTT INR 1.04 (0.82-1.09) 11/25/16 05:00 Assessment/Plan #atypical CP -unlikely cardiac. short lived, sharp, resolved, unlike pt's previous cardiac pain -Tn negx1. Trend -CK neg (CK-MB <4% of total CK) -EKG unchanged from previous -Lipids -echo -Cardiology consult #Hypotension -BP 72/35 on admission -etiology unclear -NS @ 50 (cautious hydration in pt with extensive cardiac history) #PINO -Shooter'S Helper 3.5 on baseline 1 -possibly 2/2 hypotension -gentle hydration -U lytes -Nephro consult -recommend considering bladder/renal US -Hold Lisinopril and Coreg for now #Headache -unclear etiology -ESR -f/u Head CT reults -tylenol PRN #Visual changes -possibly 2/2 hypotension/TIA/Amarosis fugax -visual espinoza normal at this time -f/u Head CT -consider neuro &/or ophtho consult in am #Claudication -History PAD with stents -right leg pain with walking -Duplex arterial and venous -consider Vasc surg consult depending on result of imaging #HTN -hold lisinopril and coreg in light of current low BP #HIV -ID consult to determine when to restart meds #Hemorrhoids -Preparation H -Sitz baths #FEN -1/2 NS @ 42 -lytes unremarkable -low sodium, low cholesterol diet #Dispo - admit to tele for ACS workup Alpesh Kumar MD PGY-1 71F with PMH CAD (s/o CABG x3), HTN, peripheral vascular disease (s/p stenting by Dr. Gifford), HIV (stable for the last 25yrs), and internal hemorrhoids who presented to the ED complaining of chest pain, right leg pain, headache, and visual changes. CASTILLO better - HD CT (-); ESR 31 , CASTILLO ; visual changes likely from low BP. R leg pain possible from neuropathy +/- LS stenosis, no focal weakness, can FU with is an outpt thanks Dr Garcia [phone]
--- NOTE | 2016-11-26 15:35 | CON.CARD ---
Consult Consult Specialty:: Cardiology Referred by:: Hospitalist Medicine Reason for Consultation:: CAD s/p CABG - History of Present Illness Chief Complaint: Chest pain History of Present Illness: Pt is a 71F with PMH CAD s/p CABG x3, HTN, peripheral vascular disease s/p stenting, HIV stable for the last 25yrs, and internal hemorrhoids who presented to the ED complaining of sharp non-exertional, atypical chest pain, right leg sharp and burning leg claudication, headache behind right eye, and visual changes such as dark spots floating in visual field intermittently for last 3 days. - History Source History Provided By: Patient Limitations to Obtaining History: No Limitations - Past Medical History Cardio/Vascular: Yes: CAD, HTN, [place] Pulmonary: Yes: COPD Gastrointestinal: Yes: Gastritis Infectious Disease: Yes: HIV (contracted from her ex , no drug use or blood transfusions) Endocrine: Yes: Other (osteoporosis) - Past Surgical History Past Surgical History: Yes: CABG - Alcohol/Substance Use Hx Alcohol Use: No - Smoking History Smoking history: Current every day smoker Have you smoked in the past 12 months: Yes Aproximately how many cigarettes per day: 6 If you are a former smoker, when did you quit?: 2 MONTHS AGO - Social History Usual Living Arrangement: Other (raising her grandchildren) 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 History of Recent Travel: No Home Medications - Allergies Allergies/Adverse Reactions: Allergies Allergy/AdvReac Type Severity Reaction Status Date / Time metoclopramide HCl AdvReac Verified 11/24/16 18:08 [From [facility]] - Home Medications Home Medications: Ambulatory Orders FENTANYL 75mcg PATCH [DURAGESIC 75mcg PATCH -] 1 each TD Q72H 05/18/15 Ranitidine [Zantac -] 150 mg PO BID #30 tab 06/19/16 Aspirin [ASA -] 81 mg PO DAILY #30 tab.chew 10/02/16 Atazanavir Sulfate/Cobicistat [Evotaz 300 mg-150 mg Tablet] 1 each PO DAILY #30 tablet 10/02/16 Carvedilol 3.125 mg PO BID #60 tablet 10/02/16 Clopidogrel Bisulfate [Plavix -] 75 mg PO DAILY #30 tablet 10/02/16 Dolutegravir Sodium [Tivicay] 50 mg PO DAILY #30 tablet 10/02/16 Gabapentin [Neurontin] 600 mg PO TID #90 tablet 10/02/16 Lisinopril 5 mg PO DAILY #30 tablet 10/02/16 Valacyclovir HCl [Valtrex -] 500 mg PO BID #60 tablet 10/02/16 Atorvastatin Ca [Lipitor] 40 mg PO HS #30 tablet 10/09/16 Family Disease History - Family Disease History Family Disease History: Diabetes: Sister (2sisters; sister w/ ovarian cance ( diag. 30s, alive - age 60)), Heart Disease: Sister, [place]: Brother (3Brothers; brother -head/neck ca - d. age 50-60s), Sister, Other: Brother Review of Systems - Review of Systems Cardiovascular: reports: Chest Pain Vital Signs: Vital Signs Temperature 98.7 F 11/26/16 14:00 Pulse Rate 68 11/26/16 14:00 Respiratory Rate 22 11/26/16 14:00 Blood Pressure 102/62 11/26/16 14:00 O2 Sat by Pulse Oximetry (%) 100 11/26/16 09:00 Constitutional: Yes: No Distress, Calm Neck: Yes: Supple Respiratory: Yes: Regular, Diminished, On Nasal O2 Gastrointestinal: Yes: Normal Bowel Sounds, Soft Cardiovascular: Yes: Regular Rate and Rhythm JVD: No Carotid Bruit: No Heart Sounds: Yes: S1, S2 Murmur: Yes: Systolic Murmur, Grade 1 Edema: No - Other Data Labs, Other Data: CBC, BMP 11/26/16 08:30 11/26/16 08:30 INR, PTT INR 1.04 (0.82-1.09) 11/25/16 05:00 Imaging - Results Chest X-ray: Report Reviewed (NAD) Problem List - Problems (1) Acute renal failure Code(s): N17.9 - ACUTE KIDNEY FAILURE, UNSPECIFIED Qualifiers: Acute renal failure type: unspecified Qualified Code(s): N17.9 - Acute kidney failure, unspecified (2) Chest pain Code(s): R07.9 - CHEST PAIN, UNSPECIFIED Qualifiers: Chest pain type: unspecified Qualified Code(s): R07.9 - Chest pain, unspecified (3) Headache Code(s): R51 - HEADACHE Qualifiers: Headache type: unspecified (4) PAD (peripheral artery disease) Code(s): I73.9 - PERIPHERAL VASCULAR DISEASE, UNSPECIFIED (5) Anemia Code(s): D64.9 - ANEMIA, UNSPECIFIED Qualifiers: Anemia type: unspecified type Qualified Code(s): D64.9 - Anemia, unspecified (6) Coronary artery bypass grafting Code(s): Z95.1 - PRESENCE OF AORTOCORONARY BYPASS GRAFT (7) HIV (human immunodeficiency virus infection) Code(s): Z21 - ASYMPTOMATIC HUMAN IMMUNODEFICIENCY VIRUS INFECTION STATUS Assessment/Plan 1. Atypical chest pain 2. CAD s/p CABG, angina pectoris 3. Hypotension 4. Pre-renal PINO improving 5. Migraine headache with visual changes from hypotension 6. PAD with claudication 7. HIV P:1. Ruled out for [place], await echocardiogram results 2. Continue ASA 81 qd, Lipitor 40 qhs, Plavix 75 qd, resume carvedilol 3.125 bid and lisinopril 5 qd once hemodynamics stabilize 3. Thank you for consultative opportunity
--- NOTE | 2016-11-26 16:21 | PN ---
Progress Note (short form) - Note Progress Note: no leg pain when she ambulated today feels much better Vital Signs Period Temp Pulse Resp BP Sys/[place] Pulse Ox Last 24 Hr 97.6 F-98.7 F 54-74 12-22 84-126/51-77 100-100 cor-rrr llungs clear abd soft,nt ext no edema CBC, BMP 11/26/16 08:30 11/26/16 08:30 Microbiology 11/25/16 08:10 Blood - Peripheral Venous Blood Culture - Preliminary NO GROWTH OBTAINED AFTER 24 HOURS, INCUBATION TO CONTINUE FOR 4 DAYS. 11/25/16 08:10 Blood - Peripheral Venous Blood Culture - Preliminary NO GROWTH OBTAINED AFTER 24 HOURS, INCUBATION TO CONTINUE FOR 4 DAYS. a/p PINO-resolved hiv- can resume meds cpk trending down can resume HIV meds Problem List - Problems (1) Acute renal failure Code(s): N17.9 - ACUTE KIDNEY FAILURE, UNSPECIFIED Qualifiers: Acute renal failure type: unspecified Qualified Code(s): N17.9 - Acute kidney failure, unspecified (2) Rhabdomyolysis Code(s): M62.82 - RHABDOMYOLYSIS (3) HIV (human immunodeficiency virus infection) Code(s): Z21 - ASYMPTOMATIC HUMAN IMMUNODEFICIENCY VIRUS INFECTION STATUS
--- NOTE | 2016-11-26 16:48 | DS ---
Physical Exam: SUBJECTIVE: Patient seen and examined. She is dressed and asking to go home. States she feels well, denies any dizzines, headaches. She has been ambulating in her room. She is refusing any further workup or further IV hydration. OBJECTIVE: Her BP is now stable, will send her home but discussed the need for patient to continue hydration. Patient will call Dr. Jones for results of the echocardiogram and will follow up. She can resume her home medications tomorrow. She is in agreement to follow up with Dr. Ha as an outpatient. Vital Signs Period Temp Pulse Resp BP Sys/[place] Pulse Ox Last 24 Hr 97.6 F-98.7 F 54-74 12-22 84-126/51-77 100-100 PHYSICAL EXAM GENERAL: The patient is awake, alert, and fully oriented, in no acute distress. HEAD: Normal with no signs of trauma. EYES: PERRL, extraocular movements intact, sclera anicteric, conjunctiva clear. No ptosis. ENT: Ears normal, nares patent, oropharynx clear without exudates, moist mucous membranes. NECK: Trachea midline, full range of motion, supple. LUNGS: Breath sounds equal, clear to auscultation bilaterally, no wheezes, no crackles, no accessory muscle use. HEART: Regular rate and rhythm ABDOMEN: Soft, nontender, nondistended, normoactive bowel sounds, no guarding, no rebound, no hepatosplenomegaly, no masses. EXTREMITIES: 2+ pulses, warm, well-perfused, no edema. NEUROLOGICAL: Normal speech, gait not observed. PSYCH: Normal mood, normal affect. SKIN: Warm, dry, normal turgor, no rashes or lesions noted LABS Laboratory Results - last 24 hr 11/25/16 11/25/16 11/26/16 19:29 19:29 08:30 WBC 5.2 RBC 3.63 D Hgb 11.0 D Hct 33.3 D MCV 91.7 MCH 30.5 MCHC 33.2 RDW 14.7 Plt Count 258 MPV 6.9 L Neutrophils % 49.0 D Lymphocytes % 31.6 D Monocytes % 13.2 H Eosinophils % 5.4 H Basophils % 0.8 Sodium Potassium Chloride Carbon Dioxide Anion Gap BUN Creatinine Creat Clearance w eGFR Random Glucose Calcium Total Bilirubin AST ALT Alkaline Phosphatase Creatine Kinase Creatine Kinase Index CK-MB (CK-2) Total Protein Albumin Ur Random Sodium 103 Ur Random Potassium 15.8 Ur Random Chloride 87 Urine Creatinine 86.3 11/26/16 11/26/16 08:30 08:30 WBC RBC Hgb Hct MCV MCH MCHC RDW Plt Count MPV Neutrophils % Lymphocytes % Monocytes % Eosinophils % Basophils % Sodium 141 Potassium 4.8 Chloride 108 H Carbon Dioxide 26 Anion Gap 7 L BUN 25 H D Creatinine 1.0 D Creat Clearance w eGFR 54.81 Random Glucose 99 Calcium 8.8 Total Bilirubin 0.2 D AST 21 ALT 19 Alkaline Phosphatase 59 Creatine Kinase 371 H Cancelled Creatine Kinase Index 0.6 CK-MB (CK-2) 2.362 Total Protein 6.4 Albumin 2.9 L Ur Random Sodium Ur Random Potassium Ur Random Chloride Urine Creatinine HOSPITAL COURSE: Date of Admission:11/25/16 Date of Discharge: 11/26/16 ASSESSMENT/PLAN: Patient is a 71 year old female with a significant past medical history of CAD s /p CABG triple bypass, hypertension and +HIV, She has a past surgical history of right breast biopsy, tubal ligation and stents to bilateral lower extremities. She presents to the ED on 11/25/2016 with complaints of a persistent headache for about 1 week, right calf pain with ambulation and left sided (under breast) pain. She reports her headache as constant, behind her eyes radiating to the back of her head. She states she has been intermittently experiencing black floating spots when her headaches increase in intensity. Patient described the lower ext pain as cramping and throbbing localized to the posterior right calf and anterior right rayo. She denies chest pain, shortness of breath, headache and dizziness. She denies fever, chills, nausea, vomiting or constipation. Neuro: Headache with visual deficit - now resolved A/P: TIA vs. migrane headache CT head negative Carotid ultrasound: minimal thickening in the distal common carotid artery and bifurcation with a small to moderate sized calcified plaque at the right common cardotic birucation bulb as well as multple small to moderate sized plaques with calcification at the left common carotid, no evidence of hemodynamic significant stenosis She is a patient of Dr. Bowens and reports she had a recent echo Seen by cardiology, echo pending Will re start on ASA, on Plavix and Lipitor home meds Cardiology Chest Pain resolved A/P: Heart score 5, troponins negative x 3 BP now more stable, patient to restart cardiac meds She is in agreement to see Dr. Gogo Jones this week Ruled out for [place] by cardiology On ASA and Plavix Hypotension on admission - now resolved Resume home meds, cardiology follow up Renal Acute Renal failure - resolved Patient reports multiple laxative use at home Bun/creat within normal limits, pt to follow renal as an outpatient Encouraged her to hydrate HIV + A/P: Hypotensive on admission on pt with comprommised immune system Blood cultures sent, pending As per ID, patient may resume home antivirals Muscular/Skeletal A/p: intermittent claudication She if followed by [facility] Discharge Summary Reason For Visit: CHEST PAIN ACUTE RENAL FAILURE HIV Current Active Problems Acute renal failure (Acute) Chest pain (Acute) Headache (Acute) Rhabdomyolysis (Acute) hiv positive (Chronic) neuropathy (Chronic) Condition: Improved - Instructions Diet, Activity, Other Instructions: Mrs. Rojas: Please follow up with your PCP within 1 week after discharge. I have added the Kidney specialist phone no. for your so that you can make a follow up appointment. Please call Dr. Gogo Jones (cardiology) tomorrow for the results of your echocardiogram. Please resume all your home medications as ordered. Please return to the ER if your symptoms worsen or persist. [facility] @ [facility] [phone] Referrals: Brian Garcia DO [Staff Physician] - Theresa Polanco MD [Primary Care Provider] - Robert Bowens MD [Staff Physician] - Alexander Ha MD [Staff Physician] - Disposition: HOME - Home Medications Comprehensive Discharge Medication List: Ambulatory Orders FENTANYL 75mcg PATCH [DURAGESIC 75mcg PATCH -] 1 each TD Q72H 05/18/15 Ranitidine [Zantac -] 150 mg PO BID #30 tab 06/19/16 Aspirin [ASA -] 81 mg PO DAILY #30 tab.chew 10/02/16 Atazanavir Sulfate/Cobicistat [Evotaz 300 mg-150 mg Tablet] 1 each PO DAILY #30 tablet 10/02/16 Carvedilol 3.125 mg PO BID #60 tablet 10/02/16 Clopidogrel Bisulfate [Plavix -] 75 mg PO DAILY #30 tablet 08/03/17 Dolutegravir Sodium [Tivicay] 50 mg PO DAILY #30 tablet 10/02/16 Gabapentin [Neurontin] 600 mg PO TID #90 tablet 10/02/16 Lisinopril 5 mg PO DAILY #30 tablet 10/02/16 Valacyclovir HCl [Valtrex -] 500 mg PO BID #60 tablet 10/02/16 Atorvastatin Ca [Lipitor] 40 mg PO HS #30 tablet 10/09/16
== END 2016-11-26 19:00 | disposition home or self-care (01) | DRG 683 ==
LOC: JER 18:02 → JERBED 11-25 00:23 → UNDOADMIN 11-25 00:29 → J2W 11-25 02:19
PROVIDERS: ADMIT Internal Medicine; ATTEND Nurse Practitioner Family
DX: N17.9 Acute kidney failure, unspecified (principal); M62.82 Rhabdomyolysis; G45.9 Transient cerebral ischemic attack, unspecified; I25.10 Atherosclerotic heart disease of native coronary artery without angina pectoris; I73.89 Other specified peripheral vascular diseases; Z21 Asymptomatic human immunodeficiency virus [HIV] infection status; H43.399 Other vitreous opacities, unspecified eye; K64.8 Other hemorrhoids; G43.809 Other migraine, not intractable, without status migrainosus; I95.89 Other hypotension; M54.89 Other dorsalgia; G62.9 Polyneuropathy, unspecified; I25.2 Old myocardial infarction; J44.9 Chronic obstructive pulmonary disease, unspecified; M81.8 Other osteoporosis without current pathological fracture; F17.210 Nicotine dependence, cigarettes, uncomplicated; D64.9 Anemia, unspecified; K29.60 Other gastritis without bleeding; Z95.1 Presence of aortocoronary bypass graft
CPT/HCPCS: 36415; 70450-TC; 71020-TC; 76775-TC; 80053; 80061; 81003; 81015; 82436; 82553; 82570; 83036; 83721; 83735; 83880; 84100; 84133; 84300; 84484; 85025; 85610; 85651; 87040; 87086; 90688; 93005; 93010; 93306-TC; 93880-TC; 93970-TC; 99283-25; G0008; J1644

== ENCOUNTER 2017-03-27 16:11 | Emergency (ER) | payer OTHER ==
[2017-03-27 16:27] VITALS: BP 143/87; PULSE 88; TEMP 98.6; BMI 21.1
--- NOTE | 2017-03-27 16:27 | PDOC ---
Rapid Medical Evaluation Chief Complaint: Back Pain Time Seen by Provider: 03/27/17 16:20 Medical Evaluation: Allergies Allergy/AdvReac Type Severity Reaction Status Date / Time metoclopramide HCl AdvReac Severe Verified 01/01/17 08:26 [From Nav] 03/27/17 16:21 I have performed a brief in-person evaluation of this patient. The patient presents with a chief complaint of low back pain x 3 days. has known Lumbar disc disease + pain management for same. Takes 5mg Oxycodone BID with no relief. Denies injury or exercise change. thinks may have slept wrong. Pertinent physical exam findings: pale, walking stiffly, radiating to bilateral legs. I have ordered the following: UA. LS spine Xray The patient will proceed to the ED for further evaluation. 03/27/17 16:27
[2017-03-27 16:57] LABS: URINE APPEARANCE CLEAR; URINE BILIRUBIN NEGATIVE (NEGATIVE); URINE BLOOD 1+ (NEGATIVE); URINE COLOR YELLOW; URINE GLUCOSE (UA) NEGATIVE (NEGATIVE); URINE KETONE NEGATIVE (NEGATIVE); URINE LEUK ESTERASE NEGATIVE (NEGATIVE); URINE NITRITE NEGATIVE (NEGATIVE); URINE PROTEIN NEGATIVE (NEGATIVE); URINE UROBILINOGEN 4.0 E.U/dl mg/dL (0.2-1.0)
[2017-03-27 17:01] LABS: EPI CELLS RARE /HPF (FEW); URINE BACTERIA RARE /hpf (NONE SEEN); URINE HYALINE CAST 22 /lpf; URINE MUCUS RARE
[2017-03-27] MEDS ORDERED: KETOROLAC TROMETHAMINE 60 MG/2 ML VIAL IM ONE (19:25)
[2017-03-27] MEDS ORDERED: METHOCARBAMOL 500 MG TABLET PO ONE (19:26)
[2017-03-27] MEDS ORDERED: METHOCARBAMOL 500 MG TABLET ONE (19:34)
[2017-03-27] MEDS ORDERED: KETOROLAC TROMETHAMINE 60 MG/2 ML VIAL ONE (19:34)
[2017-03-27] MEDS ORDERED: LACTULOSE 20 GM/30 ML UDC (FOR ORAL USE ONLY) PO ONE (19:44)
[2017-03-27] MEDS ORDERED: LACTULOSE 20 GM/30 ML UDC (FOR ORAL USE ONLY) ONE (20:04)
--- NOTE | 2017-03-27 20:39 | PDOC ---
History of Present Illness <Estefani Garcia - Last Filed: 03/27/17 20:38> - General History Source: Patient Exam Limitations: No Limitations - History of Present Illness Initial Comments: 03/27/17 20:39 The patient is a 71 year old female, with a significant past medical history of chronic lower back pain, hypertension, hyperlipidemia, GERD, and HIV, who presents to the emergency department with, 3 days of lower back pain. As per patient, the lower back pain is a sharp pain originating from her spine radiating to bilateral legs. She describes the pain to be a 10/10. She reports the pain to worsen when she gets up. She reports the back pain to lessen when she is moving around. She reports using Fentanyl patches, heating pads, and 5mg Oxycodone, without relief. She denies any trauma or injury to her back. She denies recent fevers, chills, headache or dizziness. She denies recent nausea, vomit, diarrhea or constipation. She denies recent dysuria, frequency, urgency or hematuria. She denies recent chest pain or shortness of breath. Allergies: Metoclopramide HCl Social history: Nonsmoker. Denies EtOH use and recreational drug use. Primary Care Physician: Dr. Theresa Polanco <Edna Dean - Last Filed: 03/27/17 20:46> - General Chief Complaint: Back Pain Stated Complaint: LOWER BACK PAIN Time Seen by Provider: 03/27/17 16:20 Past History - Past Medical History Anemia: No Asthma: No Cancer: No Cardiac Disorders: Yes (CAD) CVA: No COPD: No CHF: No Dementia: No Diabetes: No GI Disorders: Yes (GERD) Disorders: No HTN: Yes Hypercholesterolemia: Yes Liver Disease: No Seizures: No Thyroid Disease: No Other medical history: BACK PAIN - Surgical History Abdominal Surgery: No Appendectomy: No Cardiac Surgery: Yes (CABG 2009, TRIPLE BYPASS) Cholecystectomy: No Lung Surgery: No Neurologic Surgery: No Orthopedic Surgery: No - Immunization History Immunization Up to Date: Yes - Suicide/Smoking/Psychosocial Hx Smoking Status: Yes Smoking History: Current every day smoker Have you smoked in the past 12 months: Yes Number of Cigarettes Smoked Daily: 6 If you are a former smoker, when did you quit?: 2 MONTHS AGO Cigars Per Day: 0 Information on smoking cessation initiated: No 'Breaking Loose' booklet given: 05/19/15 Hx Alcohol Use: No Drug/Substance Use Hx: No Substance Use Type: None Hx Substance Use Treatment: No <Estefani Garcia - Last Filed: 03/27/17 20:38> <Jimbo Deanbrian - Last Filed: 03/27/17 20:46> - Past Medical History Allergies/Adverse Reactions: Allergies Allergy/AdvReac Type Severity Reaction Status Date / Time metoclopramide HCl AdvReac Severe Verified 03/27/17 16:24 [From Reglan] Home Medications: Ambulatory Orders FENTANYL 75mcg PATCH [DURAGESIC 75mcg PATCH -] 1 each TD Q72H 05/18/15 Valacyclovir HCl [Valtrex -] 500 mg PO BID #60 tablet 10/02/16 Atorvastatin Ca [Lipitor] 40 mg PO HS #30 tablet 10/09/16 Ranitidine [Zantac -] 150 mg PO BID PRN #30 tab 12/31/16 Aspirin [ASA -] 81 mg PO DAILY #30 tab.chew 02/19/17 Atazanavir Sulfate/Cobicistat [Evotaz 300 mg-150 mg Tablet] 1 each PO DAILY #30 tablet 02/19/17 Carvedilol 3.125 mg PO BID #60 tablet 02/19/17 Clopidogrel Bisulfate [Plavix -] 75 mg PO DAILY #30 tablet 02/19/17 Dolutegravir Sodium [Tivicay] 50 mg PO DAILY #30 tablet 02/19/17 Gabapentin [Neurontin] 600 mg PO TID #90 tablet 02/19/17 Lisinopril 5 mg PO HS #30 tablet 02/19/17 Nicotine Patch [Nicoderm Patch -] 1 patch TD DAILY 14 Days #14 patch 02/19/17 Nicotine Patch [Nicoderm Patch -] 1 patch TD DAILY 30 Days #30 patch 02/19/17 Pravastatin Sodium [Pravachol] 40 mg PO DAILY #30 tablet 02/19/17 Lactulose 20 gm PO DAILY #100 ml 03/27/17 Methocarbamol [Robaxin -] 500 mg PO TID #30 tablet 03/27/17 Oxycodone HCl 5 mg PO BID PRN 03/27/17 Review of Systems - Review of Systems Able to Perform ROS?: Yes Comments:: 03/27/17 20:40 GENERAL/CONSTITUTIONAL: No fever or chills. No weakness. HEAD, EYES, EARS, NOSE AND THROAT: No change in vision. No ear pain or discharge. No sore throat. CARDIOVASCULAR: No chest pain or shortness of breath. RESPIRATORY: No cough, wheezing, or hemoptysis. GASTROINTESTINAL: No nausea, vomiting, diarrhea or constipation. GENITOURINARY: No dysuria, frequency, or change in urination. MUSCULOSKELETAL: + Lower back pain. No joint or muscle swelling or pain. No neck pain. SKIN: No rash NEUROLOGIC: No headache, vertigo, loss of consciousness, or change in strength/ sensation. ENDOCRINE: No increased thirst. No abnormal weight change. HEMATOLOGIC/LYMPHATIC: No anemia, easy bleeding, or history of blood clots. ALLERGIC/IMMUNOLOGIC: No hives or skin allergy. All Other Systems: Reviewed and Negative <Edna Dean - Last Filed: 03/27/17 20:46> *Physical Exam - Vital Signs Last Vital Signs Temp Pulse Resp BP Pulse Ox 98.6 F 88 18 143/87 95 03/27/17 16:24 03/27/17 16:24 03/27/17 16:24 03/27/17 16:24 03/27/17 16:24 <Estefani Garcia - Last Filed: 03/27/17 20:38> - Vital Signs Last Vital Signs Temp Pulse Resp BP Pulse Ox 98.6 F 88 18 143/87 95 03/27/17 16:24 03/27/17 16:24 03/27/17 16:24 03/27/17 16:24 03/27/17 16:24 - Physical Exam Comments: 03/27/17 20:46 GENERAL: Awake, alert, and fully oriented, in no acute distress NECK: Normal ROM, supple, no lymphadenopathy, JVD, or masses LUNGS: Breath sounds equal, clear to auscultation bilaterally. No wheezes, and no crackles HEART: +Split S1. Regular rate and rhythm, normal S2, no murmurs, rubs or gallops ABDOMEN: Soft, nontender, normoactive bowel sounds. No guarding, no rebound. No masses BACK: +Paraspinal lumbar back spasm. No change in color of the back. No flank pain. EXTREMITIES: Straight leg test negative. Pulses equal. No change of color of the ankles or feet. Normal range of motion, no edema. No clubbing or cyanosis. No cords, erythema, or tenderness NEUROLOGICAL: Cranial nerves II through XII grossly intact. Normal speech, normal gait SKIN: Warm, Dry, normal turgor, no rashes or lesions noted. <Edna Dean - Last Filed: 03/27/17 20:46> ED Treatment Course - ADDITIONAL ORDERS Additional order review: Laboratory Results 03/27/17 16:37 Urine Color Yellow Urine Appearance Clear Urine pH 5.0 Ur Specific [place] 1.020 Urine Protein Negative Urine Glucose (UA) Negative Urine Ketones Negative Urine Blood 1+ H Urine Nitrite Negative Urine Bilirubin Negative Urine Urobilinogen 4.0 e.u/dl H Ur Leukocyte Esterase Negative Urine WBC (Auto) 1 Urine RBC (Auto) 1 Ur Epithelial Cells Rare Urine Bacteria Rare Hyaline Casts 22 Urine Mucus Rare - Medications Given in the ED: ED Medications Discontinued Medications Generic Name Dose Route Start Last Admin Trade Name Freq PRN Reason Stop Dose Admin Ketorolac Tromethamine 60 mg 03/27/17 19:25 03/27/17 19:43 Toradol Injection - IM 03/27/17 19:26 60 mg ONCE ONE Administration Lactulose 20 gm 03/27/17 19:44 03/27/17 20:20 Cephulac (Oral Use) PO 03/27/17 19:45 20 gm ONCE ONE Administration Methocarbamol 1,000 mg 03/27/17 19:26 03/27/17 19:43 Robaxin - PO 03/27/17 19:27 1,000 mg ONCE ONE Administration <Estefani Garcia - Last Filed: 03/27/17 20:38> - ADDITIONAL ORDERS Additional order review: Laboratory Results 03/27/17 16:37 Urine Color Yellow Urine Appearance Clear Urine pH 5.0 Ur Specific [place] 1.020 Urine Protein Negative Urine Glucose (UA) Negative Urine Ketones Negative Urine Blood 1+ H Urine Nitrite Negative Urine Bilirubin Negative Urine Urobilinogen 4.0 e.u/dl H Ur Leukocyte Esterase Negative Urine WBC (Auto) 1 Urine RBC (Auto) 1 Ur Epithelial Cells Rare Urine Bacteria Rare Hyaline Casts 22 Urine Mucus Rare - Medications Given in the ED: ED Medications Discontinued Medications Generic Name Dose Route Start Last Admin Trade Name Freq PRN Reason Stop Dose Admin Ketorolac Tromethamine 60 mg 03/27/17 19:25 03/27/17 19:43 Toradol Injection - IM 03/27/17 19:26 60 mg ONCE ONE Administration Lactulose 20 gm 03/27/17 19:44 03/27/17 20:20 Cephulac (Oral Use) PO 03/27/17 19:45 20 gm ONCE ONE Administration Methocarbamol 1,000 mg 03/27/17 19:26 03/27/17 19:43 Robaxin - PO 03/27/17 19:27 1,000 mg ONCE ONE Administration <Edna Dean - Last Filed: 03/27/17 20:46> *DC/Admit/Observation/Transfer - Discharge Dispostion Admit: No <Estefani Garcia - Last Filed: 03/27/17 20:38> - Attestations Scribe Attestion: 03/27/17 20:40 Documentation prepared by Edna Dean, acting as program medical director for Estefani Garcia MD. <Edna Dean - Last Filed: 03/27/17 20:46> Diagnosis at time of Disposition: Back spasm - Discharge Dispostion Disposition: HOME Condition at time of disposition: Stable - Prescriptions Prescriptions: Lactulose 20 gm PO DAILY #100 ml Methocarbamol [Robaxin -] 500 mg PO TID #30 tablet - Referrals Referrals: Theresa Polanco MD [Primary Care Provider] - - Patient Instructions Printed Discharge Instructions: DI for Back Spasm - Post Discharge Activity
== END 2017-03-27 20:44 | disposition home or self-care (01) ==
LOC: JER 16:11
PROC: 3E0233Z Introduction of Anti-inflammatory into Muscle, Percutaneous Approach (ICD-10-PCS; principal; 2017-03-27)
DX: M62.830 Muscle spasm of back (principal); M51.36 Other intervertebral disc degeneration, lumbar region; I25.810 Atherosclerosis of coronary artery bypass graft(s) without angina pectoris; I10 Essential (primary) hypertension; Z95.1 Presence of aortocoronary bypass graft; E78.5 Hyperlipidemia, unspecified; E78.00 Pure hypercholesterolemia, unspecified; J21.9 Acute bronchiolitis, unspecified; Z21 Asymptomatic human immunodeficiency virus [HIV] infection status
CPT/HCPCS: 72100-TC; 81003; 81015; 96372; 99282-25; G0463-25

== ENCOUNTER 2017-05-29 19:37 | Emergency (ER) | payer OTHER ==
[2017-05-29] MEDS ORDERED: ALBUTEROL SO4 2.5/IPRATROPIUM 0.5 INH SOL 3 ML VIAL.NEB. NEB ONE ×2 (19:40→19:59)
[2017-05-29 19:44] VITALS: BP 154/99; PULSE 98; TEMP 97.5; BMI 21.9
--- NOTE | 2017-05-29 19:45 | PDOC ---
Rapid Medical Evaluation Time Seen by Provider: 05/29/17 19:38 Medical Evaluation: Allergies Allergy/AdvReac Type Severity Reaction Status Date / Time metoclopramide HCl AdvReac Severe Verified 03/27/17 16:24 [From Reglan] 05/29/17 19:38 The patient presents with a chief complaint of: shortness of breath since yesterday. Dry cough, chest tightness and dizziness. Denies chest pain, palpitations No recent illness, denies fevers, chills. Also admits to leg pain b /l, hx of stenting in both legs. I have performed a brief in-person evaluation of this patient; Pertinent physical exam findings: ambulatory, in mild respiratory distress. Lungs CTAB, tachypnic rate of 23 I have ordered the following: CBC, CMP, PT/INR, The patient will proceed to the ED for further evaluation.
--- NOTE | 2017-05-29 20:21 | PDOC ---
History of Present Illness - General History Source: Patient, Family Exam Limitations: No Limitations - History of Present Illness Initial Comments: 05/29/17 23:26 The patient is a 71 year old female, with a significant past medical history of chronic lower back pain, hypertension, hyperlipidemia, GERD and HIV (pt. states last viral load was undetectable, unsure of CD4 count), who presents to the emergency department with, multiple complaints. The patient states the upon waking up on morning she felt short of breath with exertion after getting out of bed. The patient states that this morning she has had progressively worsening shortness of breath with associated chest tightness which prompted her to come to the ED for evaluation. The patient states she has had a recent cold since 3 weeks ago with non productive cough and nasal congestion which she states has since been improving with saline spray and robitussin. The patient has a second complaint of bilateral lower extremity pain that she states has been ongoing for a couple of months. The patient states the lower extremity pain feels like a musculature pain that is present all of the time. She states she has an upcoming appointment with Dr. Gifford for evaluation of the bilateral lower extremity pain on Thursday with an ultrasound scheduled. She denies recent fevers, chills, headache or dizziness. She denies any abd pain , nausea, vomit, diarrhea or constipation. She denies recent dysuria, frequency , urgency or hematuria. She denies recent chest pain. Allergies: Metoclopramide HCL Past surgical history: CABG (Triple Bypass 2009) Primary Care Physician: Dr. Polanco Electrolysis Engineer: Dr. Bowens <Desean Love - Last Filed: 05/29/17 23:27> <Perry Camacho - Last Filed: 05/30/17 01:47> - General Chief Complaint: Shortness of Breath Stated Complaint: SOB Time Seen by Provider: 05/29/17 19:38 Past History <Desean Love - Last Filed: 05/29/17 23:27> - Past Medical History Anemia: No Asthma: No Cancer: No Cardiac Disorders: Yes (CAD) CVA: No COPD: No CHF: No Dementia: No Diabetes: No GI Disorders: Yes (GERD) Disorders: No HTN: Yes Hypercholesterolemia: Yes Liver Disease: No Seizures: No Thyroid Disease: No - Surgical History Abdominal Surgery: No Appendectomy: No Cardiac Surgery: Yes (CABG 2010, TRIPLE BYPASS) Cholecystectomy: No Lung Surgery: No Neurologic Surgery: No Orthopedic Surgery: No - Immunization History Immunization Up to Date: Yes - Suicide/Smoking/Psychosocial Hx Smoking Status: Yes Smoking History: Current every day smoker Have you smoked in the past 12 months: Yes Number of Cigarettes Smoked Daily: 10 If you are a former smoker, when did you quit?: 2 MONTHS AGO Cigars Per Day: 0 Information on smoking cessation initiated: Yes 'Breaking Loose' booklet given: 05/19/15 Hx Alcohol Use: No Drug/Substance Use Hx: No Substance Use Type: None Hx Substance Use Treatment: No <Perry Camacho - Last Filed: 05/30/17 01:47> - Past Medical History Allergies/Adverse Reactions: Allergies Allergy/AdvReac Type Severity Reaction Status Date / Time metoclopramide HCl AdvReac Severe Verified 05/29/17 19:44 [From [facility]] Home Medications: Ambulatory Orders FENTANYL 75mcg PATCH [DURAGESIC 75mcg PATCH -] 1 each TD Q72H 05/18/15 Atorvastatin Ca [Lipitor] 40 mg PO HS #30 tablet 10/09/16 Ranitidine [Zantac -] 150 mg PO BID PRN #30 tab 12/31/16 Aspirin [ASA -] 81 mg PO DAILY #30 tab.chew 02/19/17 Atazanavir Sulfate/Cobicistat [Evotaz 300 mg-150 mg Tablet] 1 each PO DAILY #30 tablet 02/19/17 Carvedilol 3.125 mg PO BID #60 tablet 02/19/17 Clopidogrel Bisulfate [Plavix -] 75 mg PO DAILY #30 tablet 02/19/17 Dolutegravir Sodium [Tivicay] 50 mg PO DAILY #30 tablet 02/19/17 Gabapentin [Neurontin] 600 mg PO TID #90 tablet 02/19/17 Lisinopril 5 mg PO HS #30 tablet 02/19/17 Nicotine Patch [Nicoderm Patch -] 1 patch TD DAILY 14 Days #14 patch 02/19/17 Pravastatin Sodium [Pravachol] 40 mg PO DAILY #30 tablet 02/19/17 Methocarbamol [Robaxin -] 500 mg PO TID #30 tablet 03/27/17 Oxycodone HCl 5 mg PO BID PRN 03/27/17 Lactulose 20 gm PO DAILY PRN #1 bottle MDD 20 04/01/17 Fluticasone Prop 0.05% Nasal [Flonase -] 1 - 2 spray NS DAILY #1 spray.pump Guaifenesin Dm [Robitussin Dm -] 10 ml PO Q4H PRN #240 ml 05/22/17 Albuterol Sulfate Inhaler - [Ventolin HFA Inhaler -] 1 - 2 inh PO Q4H PRN #1 inhaler 05/30/17 Review of Systems - Review of Systems Comments:: 05/29/17 23:26 CONSTITUTIONAL: No reported: Fever, Chills, Diaphoresis, Generalized Weakness, Malaise, Loss of Appetite HEENT: Present: +Nasal Congestion (Resolved). No reported: Rhinorrhea, Throat Pain, Throat Swelling, Difficulty Swallowing, Mouth Swelling, Ear Pain, Eye Pain, Visual Changes CARDIOVASCULAR: No reported: Chest Pain, Syncope, Palpitations, Irregular Heart Rate, Lightheadedness, Peripheral Edema RESPIRATORY: Present: +Cough, +Shortness of Breath, +SOB with Exertion, No reported: Orthopnea, Wheezing, Stridor, Hemoptysis GASTROINTESTINAL: No reported: Abdominal pain, Abdominal Distension, Nausea, Vomiting, Diarrhea, Constipation, Melena, Hematochezia GENITOURINARY: No reported: Dysuria, Frequency, Urgency, Hesitancy, Flank Pain, Genital Pain MUSCULOSKELETAL: Present: +Bilateral lower extremity pain. No reported: Joint Swelling, Back pain, Neck Pain SKIN: No reported: Rash, Itching, Pallor HEMEATOLOGIC/IMMUNOLOGIC: No reported: Easy Bleeding, Easy Bruising, Lymphadenopathy, Frequent infections ENDOCRINE: No reported: Unexplained Weight Gain, Unexplained Weight Loss, Heat Intolerance , Cold Intolerance NEUROLOGIC: No reported: Headache, Focal Weakness, Paresthesias, Vertigo, Lightheadedness, Unsteady Gait, Seizure, Mental Status Changes, Incontinence PSYCHIATRIC: No reported: Anxiety, Depression <Desean Love - Last Filed: 05/29/17 23:27> *Physical Exam - Vital Signs Last Vital Signs Temp Pulse Resp BP Pulse Ox 97.5 F L 98 H 23 154/99 100 05/29/17 19:39 05/29/17 19:39 05/29/17 19:39 05/29/17 19:39 05/29/17 19:39 - Physical Exam Comments: 05/29/17 23:26 GENERAL: The patient is awake, alert, and fully oriented, Nontoxic - in no acute distress. HEAD: Normocephalic, atraumatic. EYES: extraocular movements intact, sclera anicteric, conjunctiva clear. ENT: Normal voice, Moist mucous membranes. NECK: Normal range of motion, supple LUNGS:scattered wheezing, HEART: Regular rate and rhythm, normal S1 and S2 without murmur, rub or gallop. ABDOMEN: Soft, nontender, normoactive bowel sounds. No guarding, no rebound. . No CVA tenderness EXTREMITIES: Normal range of motion, no edema. warm extremities, cap refil at approx 2 sec, sensation intact, +dp pulses b/l NEUROLOGICAL: No facial assymetry, Normal speech, PSYCH: Normal mood, normal affect. SKIN: Warm, Dry, normal turgor, <Desean Love - Last Filed: 05/29/17 23:27> - Vital Signs Last Vital Signs Temp Pulse Resp BP Pulse Ox 97.5 F L 98 H 23 154/99 100 05/29/17 19:39 05/29/17 19:39 05/29/17 19:39 05/29/17 19:39 05/29/17 19:39 <Perry Camacho - Last Filed: 05/30/17 01:47> Heart Score/ECG Review - ECG Impressions Comment:: 05/29/17 21:54 Twelve-lead EKG was performed and reviewed by me. There is normal sinus rhythm with a normal rate. Rate of 95 The axis is normal. The intervals are normal. There is normal R wave progression TWI in anterior leads. <Perry Camacho - Last Filed: 05/30/17 01:47> ED Treatment Course - LABORATORY CBC & Chemistry Diagram: 05/29/17 20:15 05/29/17 20:15 - ADDITIONAL ORDERS Additional order review: Laboratory Results 05/29/17 05/29/17 05/29/17 Unknown 20:15 20:15 PT with INR INR Sodium 142 Potassium 4.1 Chloride 109 H Carbon Dioxide 25 Anion Gap 8 BUN 23 H Creatinine 1.1 H Creat Clearance w eGFR 49.10 Random Glucose 94 Calcium 9.8 Magnesium 2.1 Total Bilirubin 0.3 D AST 19 ALT 25 Alkaline Phosphatase 79 Creatine Kinase 182 Creatine Kinase Index 0.5 CK-MB (CK-2) 1.036 Troponin I < 0.02 Total Protein 8.4 H Albumin 3.9 Urine Color Ltyellow Urine Appearance Clear Urine pH 6.0 Ur Specific [place] 1.013 Urine Protein Negative Urine Glucose (UA) Negative Urine Ketones Negative Urine Blood Negative Urine Nitrite Negative Urine Bilirubin Negative Urine Urobilinogen Negative Ur Leukocyte Esterase Negative 05/29/17 20:15 PT with INR 11.90 H INR 1.05 Sodium Potassium Chloride Carbon Dioxide Anion Gap BUN Creatinine Creat Clearance w eGFR Random Glucose Calcium Magnesium Total Bilirubin AST ALT Alkaline Phosphatase Creatine Kinase Creatine Kinase Index CK-MB (CK-2) Troponin I Total Protein Albumin Urine Color Urine Appearance Urine pH Ur Specific [place] Urine Protein Urine Glucose (UA) Urine Ketones Urine Blood Urine Nitrite Urine Bilirubin Urine Urobilinogen Ur Leukocyte Esterase 05/29/17 20:15 RBC 4.17 MCV 88.7 MCHC 34.6 RDW 15.1 MPV 7.4 L Neutrophils % 49.2 Lymphocytes % 40.0 D Monocytes % 9.3 Eosinophils % 0.6 Basophils % 0.9 - RADIOLOGY Radiograph Interpretation: 05/29/17 22:02 EXAM#: TYPE/EXAM: RESULT: [id number] US/DUPLEX ART. LOWER COMPL US INDICATION: Bilateral lower extremity pain. History of peripheral arterial disease. TECHNIQUE: Real-time grayscale, color Doppler and spectral Doppler sonogram of bilateral common femoral arteries, superficial femoral arteries, popliteal and posterior tibial arteries was performed by the technologist. Images are submitted for review. COMPARISON: None available. FINDINGS: Right lower extremity - There is mild calcific atherosclerosis along the right common femoral artery and proximal right superficial femoral artery. There is at least moderate calcific atherosclerosis along the mid to distal SFA and popliteal artery. Right common femoral artery: Triphasic waveform with peak systolic velocity = 64 cm/s. Proximal right SFA: Triphasic waveform with peak systolic velocity = 43 cm/s. Mid right SFA: Triphasic waveform with peak systolic velocity = 156 cm/s. Distal right SFA: Biphasic waveform with peak systolic velocity = 144 cm/s. Proximal right popliteal artery: Triphasic waveform with peak systolic velocity = 35 cm/s. Distal right popliteal artery: Biphasic waveform with peak systolic velocity = 25 cm/s. Right posterior tibial artery: Monophasic waveform with peak systolic velocity = 38 cm/s. Left lower extremity - There is mild calcific atherosclerosis along the common femoral artery and moderate calcific atherosclerosis along the SMA and popliteal arteries. Left common femoral artery: Triphasic waveform with peak systolic velocity = 71 cm/s. Proximal left SFA: Triphasic waveform with peak systolic velocity = 80 cm/s. Mid left SFA: Triphasic waveform with peak systolic velocity = 67 cm/s. Distal left SFA: Triphasic waveform with peak systolic velocity = 85 cm/s. Proximal left popliteal artery: Biphasic waveform with peak systolic velocity = 44 cm/s. Distal left popliteal artery: Monophasic waveform with peak systolic velocity = 43 cm/s. Left posterior tibial artery: Monophasic waveform with peak systolic velocity = 16 cm/s. IMPRESSION: 1. Elevated peak systolic velocity in the mid right SFA suggesting upstream hemodynamically significant stenosis. Monophasic flow in the right posterior tibial artery suggesting inflow stenosis. 2. Monophasic flow in the distal left popliteal artery and left posterior tibial artery suggests inflow stenosis. Reported By: Arnel Spivey DO 05/29/17 23:27 EXAM#: TYPE/EXAM: RESULT: [id number] RAD/CHEST X-RAY PORTABLE* INDICATION: Shortness of breath. TECHNIQUE: Single AP portable view of the chest. COMPARISON: 11/24/2016 chest x-ray. FINDINGS: There is bibasilar subsegmental atelectasis. No evidence of airspace consolidation, pulmonary vascular congestion or pleural effusion. There is no definable pneumothorax. There are stable enlargement of the cardiac silhouette. Status post median sternotomy and CABG. There is acromioclavicular and glenohumeral arthropathy. IMPRESSION: Bibasilar subsegmental atelectasis. No evidence of airspace consolidation, pulmonary vascular congestion or pleural effusion. Stable enlargement of the cardiac silhouette. Reported By: Arnel Spivey DO - Medications Given in the ED: ED Medications Discontinued Medications Generic Name Dose Route Start Last Admin Trade Name Freq PRN Reason Stop Dose Admin Acetaminophen 650 mg 05/29/17 21:24 05/29/17 21:25 Tylenol - PO 05/29/17 21:25 650 mg NOW ONE Administration Albuterol/Ipratropium 1 amp 05/29/17 19:40 05/29/17 20:15 Duoneb - NEB 05/29/17 19:41 1 amp ONCE ONE Administration Aspirin 325 mg 05/29/17 21:25 05/29/17 21:25 Asa - PO 05/29/17 21:26 325 mg NOW ONE Administration <Desean Love - Last Filed: 05/29/17 23:27> - LABORATORY CBC & Chemistry Diagram: 05/29/17 20:15 05/29/17 20:15 - RADIOLOGY Radiology Studies Ordered: Category Date Time Status DUPLEX ART. LEGS- LIMITED US [US] Stat Ultrasound 05/29/17 20:09 Ordered <Perry Camacho - Last Filed: 05/30/17 01:47> Medical Decision Making - Medical Decision Making 05/29/17 20:13 71y F hx hx of hx of HIV (on meds, CD4 'nromal' VRL ' undectable) htn, hl, gerd , cad sp cabg presents with complaint of sob/chest tightness for the past 2 days. Pt endorses URI a few weeks ago that was resolving. pt endorses having some epigastric pain a few days ago that has resolved, but the pt woke up feeling sob and chest tightness yesterday - and sob/tightness worsens when she is exertiong herself Allergies: Metoclopramide HCl Social history: Nonsmoker. Denies EtOH use and recreational drug use. Primary Care Physician: Dr. Theresa Polanco conscern for possible pna, acs, bronchitis/bronchospasm will ck cxr, labs, ekg, trops 05/29/17 22:18 The patient's lab work was reviewed it is unremarkable, the patient's chest x- ray is negative for acute disease,. The patient's vascular ultrasound is noted for some stenosis, but the patient does have palpable pulses and cap refill of her lower extremities. The patient follow-up with Dr. Gifford as an outpatient Will obtain repeat troponins in 2 hours 05/29/17 23:31 Patient now complaining of vomiting without any cp/epigasric pain also complaining of some headace 05/30/17 01:44 pt feeling improved suspect her symptmos may be due to bronchspasm related to her recent URI trop negative x 2 pt currently asymptmatic abd soft nontender tolerating oral intake I discussed the physical exam findings, ancillary test results and final diagnoses with the patient. I answered all of the patient's questions. The patient was satisfied with the care received and felt comfortable with the discharge plan and treatment plan. The patient will call their primary care physician within 24 hours to arrange follow-up and will return to the Emergency Department with any new, persistent or worsening symptoms. <Perry Camacho - Last Filed: 05/30/17 01:47> *DC/Admit/Observation/Transfer - Attestations Scribe Attestion: 05/29/17 22:02 Documentation prepared by Desean Love, acting as medical geneticist for Perry Camacho MD. <Desean Love - Last Filed: 05/29/17 23:27> - Discharge Dispostion Admit: No <Perry Camacho - Last Filed: 05/30/17 01:47> Diagnosis at time of Disposition: Shortness of breath - Discharge Dispostion Disposition: HOME Condition at time of disposition: Improved - Referrals Referrals: Theresa Polanco MD [Staff Physician] - Robert Bowens MD [Staff Physician] - - Patient Instructions Printed Discharge Instructions: DI for Shortness of Breath Additional Instructions: Return to the emergency department immediately with ANY new, persistent or worsening symptoms. Use the albuterol as needed for your shortness of breath. You MUST call and follow up with your doctor next week for further evaluation of your symptoms. Results were discussed with you. Please make sure your doctor reviews the results of your emergency evaluation. If you had any xrays during your visit, it was read preliminarily by myself, a Radiologist will review it and if there are any additional findings we will call you. Print Language: PERSIAN
[2017-05-29 20:23] LABS: BASO % 0.9 % (0-2.0); EOS % 0.6 % (0-4.5); HEMOGLOBIN 12.8 GM/dL (10.7-15.3); MCH 30.7 pg (25.7-33.7); MCHC 34.6 g/dl (32.0-36.0); MEAN CELL VOLUME 88.7 fl (80-96); MEAN PLT VOLUME 7.4 fl (7.5-11.1); MONO % 9.3 % (3.8-10.2); NEUT % 49.2 % (42.8-82.8); PLATELET COUNT 327 K/MM3 (134-434); RBC 4.17 M/mm3 (3.60-5.2); RDW 15.1 % (11.6-15.6); WHITE BLOOD COUNT 7.1 K/mm3 (4.0-10.0)
[2017-05-29 20:53] LABS: URINE APPEARANCE CLEAR; URINE BILIRUBIN NEGATIVE (<2.0 mg/dL); URINE BLOOD NEGATIVE (NEGATIVE); URINE COLOR LTYELLOW; URINE GLUCOSE (UA) NEGATIVE (NEGATIVE); URINE KETONE NEGATIVE (NEGATIVE); URINE LEUK ESTERASE NEGATIVE (NEGATIVE); URINE NITRITE NEGATIVE (NEGATIVE); URINE PROTEIN NEGATIVE (NEGATIVE); URINE UROBILINOGEN NEGATIVE mg/dL (0.2-1.0)
[2017-05-29 21:08] LABS: ALBUMIN 3.9 g/dl (3.4-5.0); ALK PHOS 79 U/L (45-117); ANION GAP 8 (8-16); BILIRUBIN,TOTAL 0.3 mg/dL (0.2-1.0); BLOOD UREA NITROGEN 23 mg/dL (7-18); CALCIUM 9.8 mg/dL (8.5-10.1); CHLORIDE 109 mmol/L (98-107); CO2 25 mmol/L (21-32); CREATININE 1.1 mg/dL (0.55-1.02); GLUCOSE,RANDOM 94 mg/dL (74-106); MAGNESIUM 2.1 mg/dL (1.8-2.4); POTASSIUM 4.1 mmol/L (3.5-5.1); SGOT/AST 19 U/L (15-37); SGPT/ALT 25 U/L (12-78); SODIUM 142 mmol/L (136-145); TOT PROT 8.4 g/dl (6.4-8.2)
[2017-05-29] MEDS ORDERED: ACETAMINOPHEN 325 MG TABLET (FP) ONE (21:21)
[2017-05-29] MEDS ORDERED: ASPIRIN 325 MG TABLET ONE (21:22)
[2017-05-29] MEDS ORDERED: ACETAMINOPHEN 325 MG TABLET (FP) PO ONE (21:24)
[2017-05-29 21:25] LABS: INR 1.05 (0.82-1.09); PROTHROMBIN TIME (PATIENT) 11.9 SEC (9.98-11.88)
[2017-05-29] MEDS ORDERED: ASPIRIN 325 MG TABLET PO ONE (21:25)
[2017-05-29] MEDS ORDERED: IBUPROFEN 400 MG TABLET (FP) PO ONE ×2 (23:21→23:23)
[2017-05-29] MEDS ORDERED: ONDANSETRON 4 MG/2 ML VIAL IVPB ONE (23:21)
[2017-05-29] MEDS ORDERED: ONDANSETRON 4 MG/2 ML VIAL ONE (23:23)
[2017-05-29] MEDS ORDERED: MAG HYDROX/AL HYDROX/SIMETH -MYLANTA- ORAL SUSPENSION PO ONE (23:30)
[2017-05-29] MEDS ORDERED: FAMOTIDINE 20 MG/50 ML IVPB 20 MG in PREMIX 50 IVPB ONE (23:30)
[2017-05-30] MEDS ORDERED: MAG HYDROX/AL HYDROX/SIMETH 30 ML UNIT-DOSE CUP ONE (00:14)
[2017-05-30] MEDS ORDERED: FAMOTIDINE 20 MG/50 ML IVPB 20 MG/50 ML MG IVPB ONE (00:14)
--- NOTE | 2017-05-30 17:56 | EKG ---
Test Reason : Blood Pressure : / mmHG Vent. Rate : 095 BPM Atrial Rate : 095 BPM P-R Int : 152 ms QRS Dur : 084 ms QT Int : 386 ms P-R-T Axes : 058 020 064 degrees QTc Int : 485 ms NORMAL SINUS RHYTHM LEFT ATRIAL ENLARGEMENT MARKED T WAVE ABNORMALITY, CONSIDER ANTERIOR ISCHEMIA ABNORMAL ECG Confirmed by MD GIN, SHANNON ([id number]) on 05/30/2017 5:55:58 PM Referred By: Confirmed By:SHANNON GREENFIELD MD
== END 2017-05-30 01:52 | disposition home or self-care (01) ==
LOC: JER 19:37
PROC: 3E0F7GC Introduction of Other Therapeutic Substance into Respiratory Tract, Via Natural or Artificial Opening (ICD-10-PCS; principal; 2017-05-29)
PROC: 3E033GC Introduction of Other Therapeutic Substance into Peripheral Vein, Percutaneous Approach (ICD-10-PCS; 2017-05-29)
DX: R06.02 Shortness of breath (principal); M79.604 Pain in right leg; M79.605 Pain in left leg; I73.89 Other specified peripheral vascular diseases; Z95.828 Presence of other vascular implants and grafts; I25.10 Atherosclerotic heart disease of native coronary artery without angina pectoris; I10 Essential (primary) hypertension; Z95.1 Presence of aortocoronary bypass graft; Z87.891 Personal history of nicotine dependence; E78.5 Hyperlipidemia, unspecified; K21.9 Gastro-esophageal reflux disease without esophagitis; M54.5 Low back pain; G89.29 Other chronic pain; Z21 Asymptomatic human immunodeficiency virus [HIV] infection status
CPT/HCPCS: 36415; 71045-TC-FY; 80053; 81003; 82550; 82553; 83690; 83735; 84484; 85025; 85610; 87086; 93005; 93010; 93925-TC; 94640; 96365; 96375; 99282-25

== ENCOUNTER 2017-08-13 06:00 | Day surgery (SDC) | payer OTHER ==
[2017-08-12 14:21] VITALS: BMI 22.7
[2017-08-13] MEDS ORDERED: ceFAZolin SODIUM 1 GM VIAL IVPB ONE (09:35)
[2017-08-13] MEDS ORDERED: LIDOCAINE HCL 1%, 10 MG/ML (50 mL VIAL) IJ ONE (09:40)
[2017-08-13 09:57] LABS: INR 1.04 (0.82-1.09); PROTHROMBIN TIME (PATIENT) 11.7 SEC (9.7-13.0)
--- NOTE | 2017-08-13 10:01 | OP ---
Operative Note - Note: Operative Date: 08/13/17 Pre-Operative Diagnosis: RLE claudication Operation: Aortogram, RLE angiogram Findings: no areas of stenosis . Pt has collateral circulation going down to the foot below the knee. Post-Operative Diagnosis: Same as Pre-op Surgeon: Boo Gifford Anesthesia: Fractional Estimated Blood Loss (mls): 20 Operative Report Dictated: Yes
--- NOTE | 2017-08-13 10:37 | OP ---
DATE OF OPERATION: 08/13/2017 PREOPERATIVE DIAGNOSIS: Right lower extremity claudication. POSTOPERATIVE DIAGNOSIS: Right lower extremity claudication. PROCEDURE: Aortogram, right lower extremity angiogram. SURGEON: Boo Paulino DO ANESTHESIA: Fractional. BLOOD LOSS: 20 mL. The patient is a 72-year-old female complaining of right lower extremity claudication. She also has significant back pain and she sees a neurologist for that and is on multiple medications. Preoperative ultrasound shows tibial disease and it was decided that we would do an angiogram. Patient came into ambulatory surgery. Patient was consented for the procedure understanding all risks, benefits and alternatives and taken to the operating room. Once in the operating suite and on the operative table in the supine manner the area of the left and right groin was prepped and draped in a sterile surgical manner. We then injected 10 mL of lidocaine 1% over the left common femoral artery. We then took our Micropuncture needle and punctured the left common femoral artery. Micropuncture wire was inserted. Micropuncture sheath was inserted. A 0.035 floppy guidewire was inserted and a traditional 5-Vietnamese sheath was inserted. We then went ahead and placed an Omni Flush catheter into the aorta and we shot an angiogram by hand injection showing that the aorta and the iliac arteries were without any disease. We then went up and over to the right common femoral artery using our wire and our Omni Flush catheter followed. We then shot an angiogram of the right lower extremity showing that the common femoral artery, profunda and the SFA, popliteal artery were patent. Below the knee patient does not have any direct runoff, but it is all collateral circulation going down to the foot. There are no areas of stenosis. There is no bypassable disease. At this point we brought our Omni Flush catheter up and over. We then removed our 5-Vietnamese sheath from the left groin. Pressure was held on the left groin for 5 minutes. Afterward there was no bleeding. The area was wet and dried and Dermabond was placed. Patient tolerated the procedure with no complication. Patient transferred to PACU in stable condition. BOO PAULINO DO [id number]
[2017-08-13 11:36] VITALS: TEMP 97.5
[2017-08-13] MEDS ORDERED: ONDANSETRON 4 MG/2 ML VIAL IVPUSH PRN (12:50)
[2017-08-13 13:58] VITALS: BP 106/63; PULSE 61
== END 2017-08-13 13:00 | disposition home or self-care (01) ==
LOC: JASU-SURG 06:00
PROVIDERS: ATTEND Surgery Vascular Surgery
PROC: B41DYZZ Fluoroscopy of Aorta and Bilateral Lower Extremity Arteries using Other Contrast (ICD-10-PCS; principal; 2017-08-13 12:00)
DX: I70.211 Atherosclerosis of native arteries of extremities with intermittent claudication, right leg (principal)
CPT/HCPCS: 36415; 76000-TC-FY; 85610; 94760

== ENCOUNTER 2017-12-21 06:51 | Day surgery (SDC) | payer OTHER ==
[2017-12-17 14:47] VITALS: BMI 23.0
[~2017-12-21 06:51] MED LIST: TOBRA 0.3%/DEXAMETH 0.1% OPHTHALMIC SUSP 2.5 ML BTL TP ONE
[2017-12-21] MEDS ORDERED: TROPICAMIDE 1% OPHTH SOLN 15 ML BOTTLE ONE (07:06)
[2017-12-21] MEDS ORDERED: MOXIFLOXACIN HCL 0.5% OPHTHALMIC 3 ML BOTTLE ONE (07:06)
[2017-12-21] MEDS ORDERED: CYCLOPENTOLATE HCL 1% OPHTH SOLN 2 ML BOTTLE ONE (07:06)
[2017-12-21] MEDS ORDERED: PHENYLEPHRINE 2.5% OPHTH SOLN 15 ML BOTTLE ONE (07:06)
[2017-12-21] MEDS ORDERED: CHONDROITIN SU A/HYALUR SOD 1 KIT ONE (07:10)
[2017-12-21 07:21] VITALS: TEMP 97.9
[2017-12-21] MEDS ORDERED: PHENYLEPHRINE/KETOROLAC 4 ML VIAL IO ONE ×2 (07:30→09:00)
[2017-12-21] MEDS ORDERED: MOXIFLOXACIN HCL 0.5% OPHTHALMIC 3 ML BOTTLE OS ONE ×3 (07:30→07:40)
[2017-12-21] MEDS ORDERED: TETRACAINE 0.5% OPHTH SOLN 2 ML BOTTLE ONE (07:30)
[2017-12-21] MEDS ORDERED: PHENYLEPHRINE 2.5% OPHTH SOLN 15 ML BOTTLE OS ONE ×3 (07:30→07:40)
[2017-12-21] MEDS ORDERED: POVIDONE-IODINE 5% OPHTHALMIC PREP 30 ML SOLUTION ONE (07:30)
[2017-12-21] MEDS ORDERED: CYCLOPENTOLATE HCL 1% OPHTH SOLN 2 ML BOTTLE OS ONE ×3 (07:30→07:40)
[2017-12-21] MEDS ORDERED: TROPICAMIDE 1% OPHTH SOLN 15 ML BOTTLE OS ONE ×3 (07:30→07:40)
[2017-12-21] MEDS ORDERED: TOBRA 0.3%/DEXAMETH 0.1% OPHTHALMIC SUSP 2.5 ML BTL ONE (07:32)
[2017-12-21] MEDS ORDERED: LIDOCAINE HCL/PF 1% SDV 5ML VIAL ONE (07:32)
[2017-12-21] MEDS ORDERED: BSS (NA/CA/MG/K) BALANCED SALT SOLUTION OPHTH SOLN 15 ML BOTTLE ONE (07:33)
[2017-12-21] MEDS ORDERED: DICLOFENAC SODIUM 0.1% OPHTHALMIC 2.5ML BOTTLE OS ONE ×3 (07:40→07:50)
[2017-12-21] MEDS ORDERED: DICLOFENAC SODIUM 0.1% OPHTHALMIC 2.5ML BOTTLE ONE (07:43)
[2017-12-21] MEDS ORDERED: oxyCODONE HCL 5 MG TABLET PO PRN (08:09)
[2017-12-21] MEDS ORDERED: ONDANSETRON 4 MG/2 ML VIAL IVPUSH PRN (08:09)
[2017-12-21] MEDS ORDERED: TETRACAINE 0.5% OPHTH SOLN 2 ML BOTTLE OS ONE (08:30)
[2017-12-21] MEDS ORDERED: POVIDONE-IODINE 5% OPHTHALMIC PREP 30 ML SOLUTION OS ONE (08:33)
[2017-12-21] MEDS ORDERED: CHONDROITIN SU A/HYALUR SOD 1 KIT IO ONE (08:55)
[2017-12-21] MEDS ORDERED: BSS (NA/CA/MG/K) BALANCED SALT SOLUTION OPHTH SOLN 15 ML BOTTLE OS ONE (08:55)
[2017-12-21] MEDS ORDERED: LIDOCAINE HCL 1% PRESERVATIVE FREE - 30ML VIAL IO ONE (08:55)
[2017-12-21] MEDS ORDERED: EPINEPHrine/PF 1 MG/1 ML (1:1,000) AMPULE SQ ONE (09:00)
[2017-12-21] MEDS ORDERED: TOBRA 0.3%/DEXAMETH 0.1% OPHTHALMIC SUSP 2.5 ML BTL TP ONE (09:23)
[2017-12-21 10:30] VITALS: BP 119/69; PULSE 68
--- NOTE | 2017-12-21 16:49 | OP ---
DATE OF OPERATION: 12/21/2017 SURGEON: Rich Jackson MD PREOPERATIVE DIAGNOSIS: Cataract, left eye. POSTOPERATIVE DIAGNOSIS: Cataract, left eye. PROCEDURE: Phacoemulsification of cataract, left eye with in bag placement of SN60WF with 21.0 diopter intraocular lens using Omidria. ANESTHESIA: Local. DESCRIPTION OF PROCEDURE: The patient was brought to the operating room, and the left eye was prepped and draped in the usual sterile fashion for ophthalmic surgery after placing tetracaine eye drops. The microscope was swung into position, and the 2.75 keratome was used to enter the anterior chamber at approximately 2 o'clock position filling the chamber with 0.5 mL of lidocaine preservative-free and Viscoat, and an accessory port made at approximately 5 o'clock position. The cystotome and Utrata forceps were used to make a continuous circular capsulorrhexis. BSS was used to perform hyrodissection and hydrodelineation of the lens nucleus, which was then rotated freely. Phacoemulsification was carried out in a [id number] technique after using pre phacoemulsification to remove the cortical material. IA was used to remove residual viscoelastic from the capsular bag, and the capsular bag was found to be intact, which was filled with Amvisc. A 21.0 SN60WF was injected and placed into position using the Sinskey hook. The IA was used to removed distilled viscoelastic from the capsular bag and anterior chamber. The wound was hydrated with BSS and was found to be watertight. A contact lens soaked in Tobradex solution for approximately 10 minutes was then draped on the cornea. The eye was patched and shielded. The patient was transferred to the recovery room in a stable condition having tolerated the procedure well. RICH JACKSON M.D. [id number]
== END 2017-12-21 10:31 | disposition home or self-care (01) ==
LOC: JASU-SURG 06:51
PROVIDERS: ATTEND Ophthalmology
PROC: 08RK3JZ Replacement of Left Lens with Synthetic Substitute, Percutaneous Approach (ICD-10-PCS; principal; 2017-12-21 08:00)
DX: H26.9 Unspecified cataract (principal)
CPT/HCPCS: C9447

== ENCOUNTER 2018-02-01 09:04 | Day surgery (SDC) | payer OTHER ==
[2018-02-01 09:32] VITALS: BMI 23.0
[2018-02-01] MEDS ORDERED: CYCLOPENTOLATE HCL 1% OPHTH SOLN 2 ML BOTTLE ONE (09:35)
[2018-02-01] MEDS ORDERED: MOXIFLOXACIN HCL 0.5% OPHTHALMIC 3 ML BOTTLE ONE (09:35)
[2018-02-01] MEDS ORDERED: PHENYLEPHRINE 2.5% OPHTH SOLN 15 ML BOTTLE ONE (09:35)
[2018-02-01] MEDS ORDERED: TROPICAMIDE 1% OPHTH SOLN 15 ML BOTTLE ONE (09:35)
[2018-02-01] MEDS ORDERED: DICLOFENAC SODIUM 0.1% OPHTHALMIC 2.5ML BOTTLE ONE (09:36)
[2018-02-01] MEDS ORDERED: MIDAZOLAM HCL 2 MG/2 ML SINGLE DOSE VIAL ONE (10:48)
[2018-02-01] MEDS ORDERED: TETRACAINE 0.5% HCL 0.6ML DROPPER.BOTTLE TP ONE (11:00)
[2018-02-01] MEDS ORDERED: CHONDROITIN SU A/HYALUR SOD 1 KIT IO ONE (11:13)
[2018-02-01] MEDS ORDERED: LIDOCAINE HCL 1% PRESERVATIVE FREE - 30ML VIAL IO ONE (11:13)
[2018-02-01] MEDS ORDERED: TOBRAMYCIN 0.3% OPHTH SOLN 5 ML BOTTLE OD ONE ×2 (11:16→11:30)
[2018-02-01 12:41] VITALS: BP 119/69; PULSE 82; TEMP 97.9
--- NOTE | 2018-02-01 19:28 | OP ---
DATE OF OPERATION: 02/01/2018 SURGEON: Rich Jackson MD PREOPERATIVE DIAGNOSIS: Cataract, right eye. POSTOPERATIVE DIAGNOSIS: Cataract, right eye. PROCEDURE: Phacoemulsification of cataract, right eye, with in-the-bag placement of AU00T0 22.0 diopter intraocular lens using Omidria in the infusion bag. ANESTHESIA: Local. DESCRIPTION OF PROCEDURE: The patient was brought to the operating room, and the right eye was prepped and draped in the usual sterile fashion for ophthalmic surgery after placing tetracaine drops. The microscope was swung into position, and a 2.75 keratome was used to enter the anterior chamber at approximately 10 o'clock position with an accessory port made at 2 o'clock position after filling the anterior chamber with 0.5 mL of preservative-free lidocaine and viscoelastic. Cystotome and Utrata forceps were used to make a continuous circular capsulorrhexis. BSS was used to perform hydrodissection and hydrodelineation of the lens dense nucleus which was rotated freely. Phacoemulsification was carried out in a [id number] technique. IA was used to remove residual cortical material from the capsular bag which was found to be intact and which was placed AU00T0 IOL 22.0 diopter, and IA was used to remove residual cortical material from the capsular bag and the viscoelastic. The corneal lip wounds were then hydrated with BSS and were found to be watertight. The contact lens soaked in TobraDex solution for approximately 10 minutes was then draped on the eye. The eye was patched and shielded. Patient was transferred to recovery room in a stable condition, having tolerated the procedure well. RICH JACKSON M.D. [id number]
== END 2018-02-01 12:44 | disposition home or self-care (01) ==
LOC: JASU-SURG 09:04
PROVIDERS: ATTEND Ophthalmology
PROC: 08RJ3JZ Replacement of Right Lens with Synthetic Substitute, Percutaneous Approach (ICD-10-PCS; principal; 2018-02-01 10:00)
DX: H26.9 Unspecified cataract (principal); I25.10 Atherosclerotic heart disease of native coronary artery without angina pectoris; I10 Essential (primary) hypertension; Z95.1 Presence of aortocoronary bypass graft; Z21 Asymptomatic human immunodeficiency virus [HIV] infection status

== ENCOUNTER → 2018-10-26 | Outpatient (CLI) | payer OTHER | LOC: YHH 11:30 ==

== ENCOUNTER 2018-12-24 10:10 | Emergency (ER) | payer OTHER ==
[2018-12-24 10:19] VITALS: BP 122/81; PULSE 98; TEMP 98.8; BMI 24.1
[2018-12-24] MEDS ORDERED: LIDOCAINE 5% TOPICAL PATCH TP ONE (10:38)
[2018-12-24] MEDS ORDERED: ACETAMINOPHEN 325 MG TABLET (FP) PO ONE (10:38)
[2018-12-24] MEDS ORDERED: CYCLOBENZAPRINE HCL 10 MG TABLET (FP) PO ONE (10:38)
[2018-12-24] MEDS ORDERED: ACETAMINOPHEN 325 MG TABLET (FP) ONE (10:44)
[2018-12-24] MEDS ORDERED: CYCLOBENZAPRINE HCL 10 MG TABLET (FP) ONE (10:45)
[2018-12-24] MEDS ORDERED: LIDOCAINE 5% TOPICAL PATCH ONE (10:45)
[2018-12-24 11:11] LABS: URINE APPEARANCE CLEAR; URINE BILIRUBIN NEGATIVE (NEGATIVE); URINE COLOR DK YELLOW; URINE GLUCOSE (UA) NEGATIVE (NEGATIVE); URINE KETONE TRACE (NEGATIVE); URINE LEUK ESTERASE NEGATIVE (NEGATIVE); URINE NITRITE NEGATIVE (NEGATIVE); URINE PROTEIN TRACE (NEGATIVE)
--- NOTE | 2018-12-24 11:16 | PDOC ---
History of Present Illness - General Stated Complaint: LWR BACK PAIN Time Seen by Provider: 12/24/18 10:26 History Source: Patient Exam Limitations: No Limitations Past History - Past Medical History Allergies/Adverse Reactions: Allergies Allergy/AdvReac Type Severity Reaction Status Date / Time metoclopramide HCl AdvReac Severe Verified 12/24/18 10:17 [From [facility]] Home Medications: Ambulatory Orders Loratadine [Claritin -] 10 mg PO DAILY PRN #30 tablet 10/29/17 Psyllium Husk [Metamucil] 1 cap PO DAILY #1 bottle 07/27/18 Sodium Chloride [Saline Nasal [place]] 1 - 2 sprays NS PRN #1 spray 07/27/18 Baclofen 10 mg PO TID PRN #90 tablet 09/23/18 Mirtazapine 15 mg PO HS #15 tablet 09/23/18 Albuterol Sulfate Inhaler - [Ventolin HFA Inhaler -] 2 inh PO Q6H #1 inh Aspirin [ASA -] 81 mg PO DAILY #30 tab.chew 10/26/18 Atazanavir Sulfate/Cobicistat [Evotaz 300 mg-150 mg Tablet] 1 each PO DAILY #30 tablet 10/26/18 Carvedilol 3.125 mg PO BID #60 tablet 10/26/18 Clopidogrel Bisulfate [Plavix -] 75 mg PO DAILY #30 tablet 10/26/18 Dolutegravir Sodium [Tivicay] 50 mg PO DAILY #30 tablet 10/26/18 Fluticasone Prop 0.05% Nasal [Flonase -] 1 - 2 spray NS DAILY #1 spray.pump Lisinopril 5 mg PO HS #90 tablet 10/26/18 Pravastatin Sodium [Pravachol] 40 mg PO DAILY #90 tablet 10/26/18 Ranitidine [Zantac -] 150 mg PO BID PRN #30 tab 11/02/18 Ascorbic Acid [Vitamin C -] 500 mg PO DAILY #30 tablet 11/05/18 Vitamin B Complex [B Complex] 1 each PO DAILY #30 tablet 11/05/18 Gabapentin 600 mg PO TID #90 tablet 11/25/18 Valacyclovir HCl [Valtrex] 500 mg PO BID #60 tablet 11/25/18 Calcium Carbonate/Vitamin D3 [Calcium 500-Vit D3 600 Tablet] 1 each PO DAILY # 30 tablet 12/08/18 Cholecalciferol (Vitamin D3) [Replesta] 50,000 unit PO Q7D #4 wafer 12/10/18 Diclofenac Sodium [Voltaren] 2 gm TP TID PRN #3 tube NS 12/10/18 Hydrocodone/Acetaminophen [[place] 10-325 Tablet] 1 each PO TID PRN #90 tablet MDD 3 12/10/18 Cyclobenzaprine HCl [Flexeril -] 5 mg PO HS PRN #7 tablet 12/24/18 Lidocaine 5% Patch [Lidoderm -] 1 patch TP DAILY #7 patch 12/24/18 Anemia: No Asthma: No Cancer: No Cardiac Disorders: Yes (CAD) CVA: No COPD: No CHF: No Dementia: No Diabetes: No GI Disorders: Yes (GERD) Disorders: No HTN: Yes Hypercholesterolemia: Yes Liver Disease: No Seizures: No Thyroid Disease: No - Surgical History Abdominal Surgery: Yes (intrabdominal abscess) Appendectomy: No Cardiac Surgery: Yes (CABG 2009, TRIPLE BYPASS; stents in both legs) Cholecystectomy: No Lung Surgery: No Neurologic Surgery: No Orthopedic Surgery: No - Immunization History Immunization Up to Date: Yes - Psycho Social/Smoking Cessation Hx Smoking Status: Yes Smoking History: Current every day smoker Have you smoked in the past 12 months: Yes Number of Cigarettes Smoked Daily: 10 If you are a former smoker, when did you quit?: 2 MONTHS AGO Cigars Per Day: 0 Information on smoking cessation initiated: No 'Breaking Loose' booklet given: 02/01/18 Hx Alcohol Use: No Drug/Substance Use Hx: No Substance Use Type: None Hx Substance Use Treatment: No Trauma Specific PMHX - Complaint Specific PMHX Arthritis: Yes *Physical Exam - Vital Signs Last Vital Signs Temp Pulse Resp BP Pulse Ox 98.8 F 98 H 18 122/81 99 12/24/18 10:17 12/24/18 10:17 12/24/18 10:17 12/24/18 10:17 12/24/18 10:17 - Physical Exam General Appearance: No: Apparent Distress Respiratory/Chest: positive: Lungs Clear, Normal Breath Sounds. negative: Respiratory Distress Cardiovascular: positive: Regular Rhythm, Regular Rate, S1, S2. negative: Murmur Gastrointestinal/Abdominal: positive: Normal Bowel Sounds, Soft. negative: Tender, Distended, Guarding, Rebound Musculoskeletal: positive: Muscle Spasm (along R lumbar paraspinal muscles), Vertebral Tenderness (mild lumbar TTP). negative: CVA Tenderness Neurologic: positive: Alert, Normal Mood/Affect, Motor Strength 5/5, Other ( able to ambulate) ED Treatment Course - ADDITIONAL ORDERS Additional order review: Laboratory Results 12/24/18 10:49 Urine Color Dk yellow Urine Appearance Clear Urine pH 6.0 Ur Specific [place] 1.025 Urine Protein Trace Urine Glucose (UA) Negative Urine Ketones Trace H Urine Blood Negative Urine Nitrite Negative Urine Bilirubin Negative Urine Urobilinogen 1.0 Ur Leukocyte Esterase Negative - RADIOLOGY Radiology Studies Ordered: Category Date Time Status SPINE-LUMBAR SACRAL [RAD] Stat Radiology 12/24/18 10:38 Ordered - Medications Given in the ED: ED Medications Discontinued Medications Generic Name Dose Route Start Last Admin Trade Name Freq PRN Reason Stop Dose Admin Acetaminophen 975 mg 12/24/18 10:38 12/24/18 10:48 Tylenol - PO 12/24/18 10:39 975 mg ONCE ONE Administration Cyclobenzaprine HCl 5 mg 12/24/18 10:38 12/24/18 10:48 Flexeril - PO 12/24/18 10:39 5 mg ONCE ONE Administration Lidocaine 1 patch 12/24/18 10:38 12/24/18 10:48 Lidoderm Patch - TP 12/24/18 10:39 1 patch ONCE ONE Administration Medical Decision Making - Medical Decision Making 73 y/o F with hx of HTN, HTN, HLD, CAD, GERD, CKD, HIV, neuropathy, chronic back pain presents with nonradiating R lower back pain x 4 days, worse with movement of spine. Patient has prior back issues and follows with pain management. Has been using Percocet, Gabapentin and Baclofen, but still back still hurts. Denies trauma, heavy lifting. Pain is worse with movement of spine. Denies fever, sob, cp, abd pain, n/v/d, urinary complaints, numbness/ tingling of legs ?MSK back pain; no concern for cauda equina; also less suspicious for kidney stones Of note, patient had prior Lumbar MRI 09/2017 which showed disc disease, minimal spondylisthesis of L3 on L4 and midline disc bulge L5-S1 Plan: Tylenol, lido patch, flexeril, UA, LS xray, reassess 12/24/18 11:13 UA negative LS xray no acute findings Patient feeling better on reassessment 12/24/18 11:42 Discharge - Discharge Information Problems reviewed: Yes Clinical Impression/Diagnosis: Back muscle spasm Condition: Improved Disposition: HOME - Admission No - Additional Discharge Information Prescriptions: Cyclobenzaprine HCl [Flexeril -] 5 mg PO HS PRN #7 tablet PRN Reason: Muscle Spasms Lidocaine 5% Patch [Lidoderm -] 1 patch TP DAILY #7 patch Prescription Drug Monitoring Program (I-STOP) results: I-STOP not reviewed - Follow up/Referral Referrals: Theresa Polanco MD [Primary Care Provider] - 2 Days - Patient Discharge Instructions Patient Printed Discharge Instructions: DI for Back Spasm Additional Instructions: Thank you for choosing [facility]. It was a pleasure taking care of you. You may take Tylenol 650 mg every 6 hours by mouth as needed for mild to moderate pain. Do not take more than 4000 mg of Tylenol in 1 day. Take Flexeril instead of Baclofen as muscle relaxer. This medication can also make you drowsy so please be cautious with driving or performing heavy physical work. Use warm compresses and epsom salt baths Use lidocaine patch as directed Return to the Emergency Department if your symptoms worsen or persist, you have fever, shortness of breath, chest pain, severe abdominal pain, vomiting, weakness of extremities, unable to walk, unable to control bowel or bladder movements or other concerning symptoms. - Post Discharge Activity
== END 2018-12-24 12:10 | disposition home or self-care (01) ==
LOC: JERFT 10:10
DX: M62.830 Muscle spasm of back (principal); I25.10 Atherosclerotic heart disease of native coronary artery without angina pectoris; I13.10 Hypertensive heart and chronic kidney disease without heart failure, with stage 1 through stage 4 chronic kidney disease, or unspecified chronic kidney disease; N18.9 Chronic kidney disease, unspecified; Z95.1 Presence of aortocoronary bypass graft; Z72.0 Tobacco use; Z95.828 Presence of other vascular implants and grafts; E78.00 Pure hypercholesterolemia, unspecified; E78.5 Hyperlipidemia, unspecified; G62.9 Polyneuropathy, unspecified; Z88.8 Allergy status to other drugs, medicaments and biological substances; Z21 Asymptomatic human immunodeficiency virus [HIV] infection status
CPT/HCPCS: 72100-TC-FY; 81003; 99281-25

== ENCOUNTER 2019-02-17 08:56 | Day surgery (SDC) | payer OTHER ==
[2019-02-17 09:14] VITALS: BMI 24.1
[2019-02-17] MEDS ORDERED: MIDAZOLAM HCL 2 MG/2 ML SINGLE DOSE VIAL ONE (09:55)
[2019-02-17] MEDS ORDERED: PROPOFOL 20 ML ONE (09:55)
--- NOTE | 2019-02-17 09:59 | HP ---
Admitting History and Physical - Admission Chief Complaint: right lower extremity claudication Limitations to Obtaining History: No Limitations - Past Medical History Cardiovascular: Yes: CAD, HTN, [place] Pulmonary: Yes: COPD Gastrointestinal: Yes: Gastritis Infectious Disease: Yes: HIV (contracted from her ex , no drug use or blood transfusions) Endocrine: Yes: Other (osteoporosis) - Past Surgical History Past Surgical History: Yes: CABG - Smoking History Smoking history: Current every day smoker Have you smoked in the past 12 months: No Aproximately how many cigarettes per day: 10 If you are a former smoker, when did you quit?: 2 MONTHS AGO - Alcohol/Substance Use Hx Alcohol Use: No - Social History 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 History of Recent Travel: No Home Medications - Allergies Allergies/Adverse Reactions: Allergies Allergy/AdvReac Type Severity Reaction Status Date / Time metoclopramide HCl AdvReac Severe Verified 12/24/18 10:17 [From Reglan] - Home Medications Home Medications: Ambulatory Orders Loratadine [Claritin -] 10 mg PO DAILY PRN #30 tablet 10/29/17 Psyllium Husk [Metamucil] 1 cap PO DAILY #1 bottle 07/27/18 Sodium Chloride [Saline Nasal [place]] 1 - 2 sprays NS PRN #1 spray 07/27/18 Mirtazapine 15 mg PO HS #15 tablet 09/23/18 Albuterol Sulfate Inhaler - [Ventolin HFA Inhaler -] 2 inh PO Q6H #1 inh Aspirin [ASA -] 81 mg PO DAILY #30 tab.chew 10/26/18 Atazanavir Sulfate/Cobicistat [Evotaz 300 mg-150 mg Tablet] 1 each PO DAILY #30 tablet 10/26/18 Carvedilol 3.125 mg PO BID #60 tablet 10/26/18 Clopidogrel Bisulfate [Plavix -] 75 mg PO DAILY #30 tablet 10/26/18 Dolutegravir Sodium [Tivicay] 50 mg PO DAILY #30 tablet 10/26/18 Fluticasone Prop 0.05% Nasal [Flonase -] 1 - 2 spray NS DAILY #1 spray.pump Lisinopril 5 mg PO HS #90 tablet 10/26/18 Pravastatin Sodium [Pravachol] 40 mg PO DAILY #90 tablet 10/26/18 Ascorbic Acid [Vitamin C -] 500 mg PO DAILY #30 tablet 11/05/18 Vitamin B Complex [B Complex] 1 each PO DAILY #30 tablet 11/05/18 Gabapentin 600 mg PO TID #90 tablet 11/25/18 Valacyclovir HCl [Valtrex] 500 mg PO BID #60 tablet 11/25/18 Calcium Carbonate/Vitamin D3 [Calcium 500-Vit D3 600 Tablet] 1 each PO DAILY # 30 tablet 12/08/18 Cholecalciferol (Vitamin D3) [Replesta] 50,000 unit PO Q7D #4 wafer 12/10/18 Diclofenac Sodium [Voltaren] 2 gm TP TID PRN #3 tube NS 12/10/18 Cyclobenzaprine HCl 5 mg PO BID PRN #60 tablet 01/11/19 Hydrocodone/Acetaminophen [[place] 10-325 Tablet] 1 each PO TID PRN #90 tablet MDD 3 02/09/19 Review of Systems - Review of Systems Constitutional: reports: No Symptoms Eyes: reports: No Symptoms HENT: reports: No Symptoms Neck: reports: No Symptoms Cardiovascular: reports: No Symptoms Respiratory: reports: No Symptoms Gastrointestinal: reports: No Symptoms Genitourinary: reports: No Symptoms Musculoskeletal: reports: No Symptoms Integumentary: reports: No Symptoms Neurological: reports: No Symptoms Endocrine: reports: No Symptoms Hematology/Lymphatic: reports: No Symptoms Psychiatric: reports: No Symptoms Physical Examination Vital Signs: Vital Signs Temperature 98.2 F 02/17/19 09:24 Pulse Rate 69 02/17/19 09:24 Respiratory Rate 20 02/17/19 09:24 Blood Pressure 143/86 02/17/19 09:24 O2 Sat by Pulse Oximetry (%) 100 02/17/19 09:24 Constitutional: Yes: Well Nourished, No Distress, Calm Eyes: Yes: WNL, Conjunctiva Clear, EOM Intact HENT: Yes: WNL, Atraumatic, Normocephalic Neck: Yes: WNL, Supple, Trachea Midline Cardiovascular: Yes: WNL, Regular Rate and Rhythm Respiratory: Yes: WNL, Regular, CTA Bilaterally Gastrointestinal: Yes: WNL, Normal Bowel Sounds Musculoskeletal: Yes: WNL Extremities: Yes: WNL Edema: No Peripheral Pulses WNL: No Integumentary: Yes: WNL Neurological: Yes: WNL, Alert, Oriented ...Motor Strength: WNL Psychiatric: Yes: WNL Problem List - Problems (1) Claudication of right lower extremity Assessment/Plan: for angiogram today Code(s): I73.9 - PERIPHERAL VASCULAR DISEASE, UNSPECIFIED
[2019-02-17] MEDS ORDERED: ceFAZolin SODIUM 1 GM VIAL ONE (10:04)
[2019-02-17] MEDS ORDERED: SODIUM CHLORIDE 0.9% P/F 10 ML VIAL IJ ONE (10:04)
[2019-02-17] MEDS ORDERED: ceFAZolin SODIUM 1 GM VIAL IVPB ONE (10:05)
[2019-02-17] MEDS ORDERED: LIDOCAINE HCL/PF 2% SDV 5ML VIAL ONE (10:07)
[2019-02-17] MEDS ORDERED: LIDOCAINE HCL 1%, 10 MG/ML (20ML VIAL) NR ONE (10:30)
[2019-02-17] MEDS ORDERED: ONDANSETRON 4 MG/2 ML VIAL IVPUSH PRN (10:43)
[2019-02-17] MEDS ORDERED: oxyCODONE HCL 5 MG TABLET PO PRN (10:43)
[2019-02-17] MEDS ORDERED: PROMETHAZINE HCL 25 MG/1 ML VIAL IVPUSH PRN (10:43)
--- NOTE | 2019-02-17 10:44 | OP ---
Operative Note - Note: Operative Date: 02/17/19 Pre-Operative Diagnosis: Right lower extremtiy claudication Operation: Aortogram, RLE angiogram Findings: small vessel disease Post-Operative Diagnosis: Same as Pre-op Surgeon: Boo Gifford Anesthesia: Fractional Estimated Blood Loss (mls): 5 Operative Report Dictated: Yes
[2019-02-17] MEDS ORDERED: LACTATED RINGERS SOLUTION 1,000 ML IV SCH (10:45)
--- NOTE | 2019-02-17 11:17 | OP ---
DATE OF OPERATION: 02/17/2019 PREOPERATIVE DIAGNOSIS: Right lower extremity claudication. POSTOPERATIVE DIAGNOSIS: Right lower extremity claudication. PROCEDURE: Aortogram, right lower extremity angiogram. SURGEON: Boo Paulino DO ANESTHESIA: Fractional. BLOOD LOSS: 5 mL. Patient is a 73-year-old female who complains of right lower extremity claudication after walking 1 or 2 blocks. She does have significant amount of back pain and spine issues and has neurological issues in bilateral lower extremities as well. Patient came in through ambulatory surgery. Patient was consented for the procedure, understanding all risks, benefits, and alternatives, was then taken to the operating room. Once in the operating room, was laid on the operating table in supine manner. The areas of the right and left groins were prepped and draped in a sterile surgical manner. We then injected 10 mL of lidocaine 1% over the left common femoral artery. We then went ahead and used our micropuncture needle and punctured the left common femoral artery. Micropuncture wire was inserted. Micropuncture sheath was inserted, and a traditional 5-[place] sheath was inserted. A 0.035 floppy guidewire was inserted into the aorta, followed by an Omni Flush catheter. We then shot an aortogram by hand injection, showing that the aorta and the iliac arteries were without any disease. We then used a 0.035 floppy guidewire and went up and over to the right common femoral artery, and our Omni Flush catheter followed. We then shot an angiogram of the right lower extremity, showing that the common femoral artery, the profunda, and the SFA were patent. The popliteal artery was patent. However, the below-knee popliteal artery was all collateral circulation feeding her tibial arteries. There was no good in-line flow. There was no TP trunk. Patient has 2-vessel runoff in the form of peroneal and AT that fill by collateral circulation in the foot. At this point, there was no stenosis or occlusion to fix; so, we removed our Omni Flush catheter. Our 5-[place] sheath from the left groin was removed. Pressure was held for 10 minutes. Afterwards, there was no more bleeding. Area was wet and dried, and Dermabond was placed. Patient tolerated the procedure with no complications. Patient transferred to PACU in stable condition. BOO PAULINO DO UTILITY BILL COMPLAINTS INVESTIGATOR/[id number]
[2019-02-17] MEDS ORDERED: CLOPIDOGREL BISULFATE 75 MG TABLET (FP) ONE (11:42)
[2019-02-17] MEDS ORDERED: CLOPIDOGREL BISULFATE 75 MG TABLET (FP) PO ONE ×2 (11:45→12:27)
[2019-02-17] MEDS ORDERED: METOPROLOL TARTRATE 5 MG/5 ML VIAL IVPUSH ONE (11:58)
[2019-02-17 12:40] VITALS: TEMP 98.1
[2019-02-17 13:41] VITALS: BP 145/68; PULSE 60
== END 2019-02-17 13:30 | disposition home or self-care (01) ==
LOC: JASU-SURG 08:56
PROVIDERS: ATTEND Surgery Vascular Surgery
PROC: B41DZZZ Fluoroscopy of Aorta and Bilateral Lower Extremity Arteries (ICD-10-PCS; principal; 2019-02-17 10:30)
DX: I70.211 Atherosclerosis of native arteries of extremities with intermittent claudication, right leg (principal)
CPT/HCPCS: 37224; C1885; 76000-TC-FY; 94760

== ENCOUNTER 2020-11-01 04:37 | Day surgery (SDC) | payer OTHER ==
[2020-10-30 13:27] VITALS: BMI 23.0
[2020-11-01] MEDS ORDERED: HEPARIN NA (PORCINE) 5,000 UNITS/ML 1ML VIAL ONE (13:56)
[2020-11-01] MEDS ORDERED: LIDOCAINE HCL 1%, 10 MG/ML (20ML VIAL) ONE (13:56)
[2020-11-01] MEDS ORDERED: DEXMEDETOMIDINE HCL 200 MCG/2 ML IVPB ONE (14:04)
[2020-11-01] MEDS ORDERED: ACETAMINOPHEN INJECTION 100 ML IVPB ONE (14:05)
[2020-11-01] MEDS ORDERED: ceFAZolin SODIUM 1 GM VIAL IVPB ONE (14:15)
[2020-11-01] MEDS ORDERED: LIDOCAINE HCL 1%, 10 MG/ML (20ML VIAL) INF ONE (14:45)
[2020-11-01] MEDS ORDERED: ONDANSETRON 4 MG/2 ML VIAL IVPUSH PRN (16:10)
[2020-11-01 16:57] VITALS: BP 100/66; PULSE 65; TEMP 96.9
== END 2020-11-01 17:35 | disposition home or self-care (01) ==
LOC: JASU-SURG 04:37
PROVIDERS: ATTEND Surgery Vascular Surgery
PROC: 047K3Z1 Dilation of Right Femoral Artery using Drug-Coated Balloon, Percutaneous Approach (ICD-10-PCS; principal; 2020-11-01 13:30)
DX: I70.211 Atherosclerosis of native arteries of extremities with intermittent claudication, right leg (principal); I10 Essential (primary) hypertension; Z72.0 Tobacco use; Z21 Asymptomatic human immunodeficiency virus [HIV] infection status
CPT/HCPCS: 37225; C2623; 76000-TC-FY; 94760; J0131; J1644

== ENCOUNTER 2020-11-29 04:32 | Day surgery (SDC) | payer OTHER ==
[2020-11-28 16:06] VITALS: BMI 21.9
[2020-11-29] MEDS ORDERED: LIDOCAINE HCL 1%, 10 MG/ML (20ML VIAL) ONE (10:57)
[2020-11-29] MEDS ORDERED: HEPARIN NA (PORCINE) 5,000 UNITS/ML 1ML VIAL ONE ×2 (10:57→12:24)
[2020-11-29] MEDS ORDERED: ACETAMINOPHEN 325 MG TABLET (FP) PO PRN (12:16)
[2020-11-29] MEDS ORDERED: ONDANSETRON 4 MG/2 ML VIAL IVPUSH PRN (12:16)
[2020-11-29] MEDS ORDERED: MIDAZOLAM HCL 2 MG/2 ML SINGLE DOSE VIAL ONE (12:24)
[2020-11-29] MEDS ORDERED: ceFAZolin SODIUM 1 GM VIAL ONE (12:24)
[2020-11-29] MEDS ORDERED: LACTATED RINGERS SOLUTION 1,000 ML IV SCH (12:30)
[2020-11-29] MEDS ORDERED: ceFAZolin SODIUM 1 GM VIAL IVPB ONE (12:39)
[2020-11-29] MEDS ORDERED: LIDOCAINE HCL 1%, 10 MG/ML (20ML VIAL) SQ ONE (12:53)
[2020-11-29] MEDS ORDERED: HEPARIN NA (PORCINE) 5,000 UNITS/ML 1ML VIAL SQ ONE (13:05)
[2020-11-29] MEDS ORDERED: PROPOFOL 20 ML ONE (13:18)
[2020-11-29] MEDS ORDERED: ACETAMINOPHEN 325 MG TABLET (FP) ONE (14:47)
[2020-11-29] MEDS ORDERED: ACETAMINOPHEN 325 MG TABLET (FP) PO ONE (14:50)
[2020-11-29 15:42] VITALS: BP 135/77; PULSE 72; TEMP 97.4
== END 2020-11-29 16:10 | disposition home or self-care (01) ==
LOC: JASU-SURG 04:32
PROVIDERS: ATTEND Surgery Vascular Surgery
PROC: 047L3Z1 Dilation of Left Femoral Artery using Drug-Coated Balloon, Percutaneous Approach (ICD-10-PCS; principal; 2020-11-29 12:00)
DX: I70.212 Atherosclerosis of native arteries of extremities with intermittent claudication, left leg (principal)
CPT/HCPCS: 37225; C2623; 76000-TC-FY; 94760; J1644

== ENCOUNTER 2021-03-06 13:32 | Inpatient (IN) | payer OTHER ==
[2021-03-06] MEDS ORDERED: ASPIRIN 81 MG CHEWABLE TABLETS PO ONE (16:21)
[2021-03-06] MEDS ORDERED: ASPIRIN 81 MG CHEWABLE TABLETS ONE (17:28)
[2021-03-06 18:34] LABS: BASO % 0.7 % (0-2.0); EOS % 0.7 % (0-4.5); HEMATOCRIT 37.1 % (32.4-45.2); HEMOGLOBIN 12.5 GM/dL (10.7-15.3); LYMPH % 40.7 % (8-40); MCH 30.6 pg (25.7-33.7); MCHC 33.8 g/dl (32.0-36.0); MEAN CELL VOLUME 90.6 fl (80-96); MEAN PLT VOLUME 7.6 fl (7.5-11.1); MONO % 11.2 % (3.8-10.2); NEUT % 46.7 % (42.8-82.8); PLATELET COUNT 237 10^3/uL (134-434); RBC 4.09 M/mm3 (3.60-5.2); RDW 14.1 % (11.6-15.6); WHITE BLOOD COUNT 5.2 K/mm3 (4.0-10.0)
[2021-03-06 18:43] LABS: INR 0.97 (0.83-1.09); PROTHROMBIN TIME (PATIENT) 11.4 SEC (9.7-13.0)
[2021-03-06 18:45] LABS: ACTIVATED PTT 29.6 SECONDS (25.2-36.5)
[2021-03-06 18:52] LABS: CHLORIDE 103 mmol/L (98-107); SODIUM 138 mmol/L (136-145)
[2021-03-06 18:54] LABS: CALCIUM 9.2 mg/dL (8.5-10.1)
[2021-03-06 18:55] LABS: ALBUMIN 3.9 g/dl (3.4-5.0); ANION GAP 8 MMOL/L (8-16); BLOOD UREA NITROGEN 34.2 mg/dL (7-18); CO2 27 mmol/L (21-32); GLUCOSE,RANDOM 94 mg/dL (74-106); MAGNESIUM 2.5 mg/dL (1.8-2.4)
[2021-03-06 18:58] LABS: CREATININE 1.5 mg/dL (0.55-1.3); SGOT/AST 37 U/L (15-37); SGPT/ALT 25 U/L (13-61)
[2021-03-06 18:59] LABS: BILIRUBIN,TOTAL 0.3 mg/dL (0.2-1)
[2021-03-06 19:00] LABS: TOT PROT 8.1 g/dl (6.4-8.2)
[2021-03-06 19:01] LABS: ALK PHOS 53 U/L (45-117)
[2021-03-06] MEDS ORDERED: SODIUM CHLORIDE 0.9% 500 ML INFUS.BAG IV ONE (19:08)
[2021-03-07] MEDS ORDERED: HEPARIN NA (PORCINE) 5,000 UNITS/ML 1ML VIAL ONE ×2 (02:32→17:20)
[2021-03-07] MEDS ORDERED: PATIENT'S OWN MEDICATION (NON-FORMULARY) (Hydrocodone Bit/Acetaminophen [Hydrocodon-Acetam PO PRN (03:48)
[2021-03-07 08:45] LABS: BASO % 0.5 % (0-2.0); EOS % 1.4 % (0-4.5); HEMATOCRIT 32.1 % (32.4-45.2); HEMOGLOBIN 10.7 GM/dL (10.7-15.3); LYMPH % 48.1 % (8-40); MCH 30.2 pg (25.7-33.7); MCHC 33.3 g/dl (32.0-36.0); MEAN CELL VOLUME 90.7 fl (80-96); MEAN PLT VOLUME 7.8 fl (7.5-11.1); MONO % 10.9 % (3.8-10.2); NEUT % 39.1 % (42.8-82.8); PLATELET COUNT 210 10^3/uL (134-434); RBC 3.54 M/mm3 (3.60-5.2); RDW 13.7 % (11.6-15.6); WHITE BLOOD COUNT 3.9 K/mm3 (4.0-10.0)
[2021-03-07 09:43] LABS: CHLORIDE 110 mmol/L (98-107); SODIUM 140 mmol/L (136-145)
[2021-03-07 09:51] LABS: ANION GAP 7 MMOL/L (8-16); CO2 23 mmol/L (21-32); GLUCOSE,RANDOM 75 mg/dL (74-106)
[2021-03-07 09:52] LABS: CHOLESTEROL 165 mg/dL (50-200)
[2021-03-07 09:53] LABS: CREATININE 1.3 mg/dL (0.55-1.3); SGOT/AST 18 U/L (15-37)
[2021-03-07 09:54] LABS: LDL CHOLESTEROL (ONLY SJRH) 98 mg/dL (5-100); MAGNESIUM 2.3 mg/dL (1.8-2.4); SGPT/ALT 19 U/L (13-61); TOT PROT 6.4 g/dl (6.4-8.2); TRIGLYCERIDES 85 mg/dL (0-150)
[2021-03-07 09:55] LABS: ALK PHOS 53 U/L (45-117); BILIRUBIN,TOTAL 0.1 mg/dL (0.2-1)
[2021-03-07 09:56] LABS: HDL CHOLESTEROL 44 mg/dL (40-60)
[2021-03-07 09:57] LABS: CALCIUM 8.4 mg/dL (8.5-10.1)
[2021-03-07] MEDS ORDERED: ATAZANAVIR SULFATE/COBICISTAT (EVOTAZ) TABLET PO SCH (10:00)
[2021-03-07 10:01] LABS: ALBUMIN 3.1 g/dl (3.4-5.0)
[2021-03-07] MEDS ORDERED: SODIUM CHLORIDE 1,000 ML IV SCH (14:30)
[2021-03-07] MEDS: ACETAMINOPHEN 325 MG TABLET (FP) PO PRN (17:14)
[2021-03-07] MEDS ORDERED: LISINOPRIL 5 MG TABLET ONE (17:19)
[2021-03-07] MEDS ORDERED: ASPIRIN 81 MG CHEWABLE TABLETS ONE (17:19)
[2021-03-07] MEDS ORDERED: CARVEDILOL 3.125 MG TABLET (FP) ONE ×2 (17:19→17:21)
[2021-03-07] MEDS ORDERED: ACETAMINOPHEN 325 MG TABLET (FP) ONE (17:19)
[2021-03-07] MEDS ORDERED: CLOPIDOGREL BISULFATE 75 MG TABLET (FP) ONE (17:20)
[2021-03-07] MEDS: HEPARIN NA (PORCINE) 5,000 UNITS/ML 1ML VIAL SQ SCH ×3 (17:43→22:17)
[2021-03-07] MEDS: CLOPIDOGREL BISULFATE 75 MG TABLET (FP) PO SCH (17:44)
[2021-03-07] MEDS: LISINOPRIL 5 MG TABLET PO SCH (17:44)
[2021-03-07] MEDS: CARVEDILOL 3.125 MG TABLET (FP) PO SCH ×3 (17:44→22:37)
[2021-03-07] MEDS: ASPIRIN 81 MG CHEWABLE TABLETS PO SCH (17:44)
[2021-03-07] MEDS: DOLUTEGRAVIR SODIUM 50 MG TABLET (NON-FORMULARY) PO SCH (17:44)
[2021-03-07] MEDS ORDERED: ATORVASTATIN CA 40 MG TABLET (FP) PO SCH (22:00)
[2021-03-07] MEDS ORDERED: ROSUVASTATIN CA 5 MG TABLET PO SCH (22:00)
[2021-03-07] MEDS: GABAPENTIN 300 MG CAPSULE PO SCH (22:17)
[2021-03-08] MEDS: HEPARIN NA (PORCINE) 5,000 UNITS/ML 1ML VIAL SQ SCH ×3 (02:19→14:03)
[2021-03-08 04:09] VITALS: BMI 23.1
[2021-03-08 08:18] LABS: HEMATOCRIT 30.5 % (32.4-45.2); HEMOGLOBIN 10.5 GM/dL (10.7-15.3); MCHC 34.5 g/dl (32.0-36.0); MEAN PLT VOLUME 7.5 fl (7.5-11.1); PLATELET COUNT 187 10^3/uL (134-434); RBC 3.39 M/mm3 (3.60-5.2); RDW 13.8 % (11.6-15.6)
[2021-03-08 08:56] LABS: CALCIUM 8.4 mg/dL (8.5-10.1)
[2021-03-08 08:57] LABS: BLOOD UREA NITROGEN 25.5 mg/dL (7-18)
[2021-03-08] MEDS: CLOPIDOGREL BISULFATE 75 MG TABLET (FP) PO SCH (09:54)
[2021-03-08] MEDS: CARVEDILOL 3.125 MG TABLET (FP) PO SCH (09:54)
[2021-03-08] MEDS: ASPIRIN 81 MG CHEWABLE TABLETS PO SCH (09:54)
[2021-03-08] MEDS: DOLUTEGRAVIR SODIUM 50 MG TABLET (NON-FORMULARY) PO SCH (09:54)
[2021-03-08] MEDS: GABAPENTIN 300 MG CAPSULE PO SCH ×2 (09:54→14:03)
[2021-03-08] MEDS: LISINOPRIL 5 MG TABLET PO SCH (09:57)
[2021-03-08 09:59] VITALS: BP 106/55; PULSE 60; TEMP 98
[2021-03-08] MEDS: ACETAMINOPHEN 325 MG TABLET (FP) PO PRN (14:03)
== END 2021-03-08 16:45 | disposition home or self-care (01) | DRG 682 ==
LOC: JER 13:32 → JERBED 20:34 → J4S 03-07 20:04
PROVIDERS: ADMIT Internal Medicine; ATTEND Internal Medicine
DX: N17.9 Acute kidney failure, unspecified (principal); U07.1 COVID-19; J12.82 Pneumonia due to coronavirus disease 2019; I10 Essential (primary) hypertension; E78.5 Hyperlipidemia, unspecified; E04.9 Nontoxic goiter, unspecified; J44.9 Chronic obstructive pulmonary disease, unspecified; I73.9 Peripheral vascular disease, unspecified; G43.909 Migraine, unspecified, not intractable, without status migrainosus; I95.9 Hypotension, unspecified; R73.03 Prediabetes; I25.10 Atherosclerotic heart disease of native coronary artery without angina pectoris; K64.8 Other hemorrhoids; Z21 Asymptomatic human immunodeficiency virus [HIV] infection status; Z95.1 Presence of aortocoronary bypass graft
CPT/HCPCS: 36415; 71046-TC-FY; 71275-TC; 76775-TC; 80048; 80053; 80061; 82550; 82553; 82728; 83036; 83615; 83735; 84100; 84443; 84484; 85025; 85027; 85379; 85610; 85730; 86140; 87086; 93005; 93010; 99285-25; C9803-CS; G2251; J1644; Q9967; U0003; U0005

== ENCOUNTER 2022-10-17 03:58 | Day surgery (SDC) | payer OTHER ==
[2022-10-15 10:55] VITALS: BMI 20.3
[~2022-10-17 03:58] MED LIST changes: +HEPARIN NA (PORCINE) 5,000 UNITS/ML 1ML VIAL SQ ONE; +LIDOCAINE HCL 1%, 10 MG/ML (20ML VIAL) NR ONE; -TOBRA 0.3%/DEXAMETH 0.1% OPHTHALMIC SUSP 2.5 ML BTL TP ONE
[2022-10-17] MEDS ORDERED: ONDANSETRON 4 MG/2 ML VIAL IVPUSH PRN (13:45)
[2022-10-17] MEDS ORDERED: LACTATED RINGERS SOLUTION 1,000 ML IV SCH (13:45)
[2022-10-17] MEDS ORDERED: oxyCODONE HCL 5 MG TABLET PO PRN (13:45)
[2022-10-17] MEDS ORDERED: PROPOFOL 20 ML ONE (13:56)
[2022-10-17] MEDS ORDERED: ceFAZolin SODIUM 1 GM VIAL IVPB ONE (14:00)
[2022-10-17] MEDS ORDERED: LIDOCAINE HCL 1%, 10 MG/ML (20ML VIAL) NR ONE (14:06)
[2022-10-17] MEDS ORDERED: ceFAZolin SODIUM 1 GM VIAL ONE ×2 (14:06)
[2022-10-17] MEDS ORDERED: ACETAMINOPHEN INJECTION 100 ML IVPB ONE (15:00)
[2022-10-17] MEDS ORDERED: ACETAMINOPHEN 1000 MG/100 ML BAG IVPB ONE ×2 (15:02→15:11)
[2022-10-17 16:49] VITALS: RESP 18
[2022-10-17 17:27] VITALS: BP 151/79; PULSE 61; TEMP 98
== END 2022-10-17 17:10 | disposition home or self-care (01) ==
LOC: JASU-SURG 03:58
PROVIDERS: ATTEND Surgery Vascular Surgery
PROC: 047L3Z1 Dilation of Left Femoral Artery using Drug-Coated Balloon, Percutaneous Approach (ICD-10-PCS; principal; 2022-10-17 12:30)
DX: I70.212 Atherosclerosis of native arteries of extremities with intermittent claudication, left leg (principal)
CPT/HCPCS: 37225; C2623; 76000-TC-FY; 94760; C1760; C1769; J1644

== ENCOUNTER 2022-11-06 05:03 | Day surgery (SDC) | payer OTHER ==
[2022-10-31 14:44] VITALS: BMI 20.3
[~2022-11-06 05:03] MED LIST changes: -HEPARIN NA (PORCINE) 5,000 UNITS/ML 1ML VIAL SQ ONE; +HEPARIN NA (PORCINE) 5,000 UNITS/ML 1ML VIAL TP ONE; +IOHEXOL 300 MG/ML INFUS..BTL IJ ONE; +LIDOCAINE HCL 1%, 10 MG/ML (20ML VIAL) INF ONE; -LIDOCAINE HCL 1%, 10 MG/ML (20ML VIAL) NR ONE; +ceFAZolin SODIUM 1 GM VIAL IVPB ONE
[2022-11-06] MEDS ORDERED: LIDOCAINE HCL 1%, 10 MG/ML (20ML VIAL) ONE (10:03)
[2022-11-06] MEDS ORDERED: HEPARIN NA (PORCINE) 5,000 UNITS/ML 1ML VIAL ONE (10:04)
[2022-11-06] MEDS ORDERED: LIDOCAINE HCL/PF 2% SDV 5ML VIAL ONE (12:15)
[2022-11-06] MEDS ORDERED: MIDAZOLAM HCL 2 MG/2 ML SINGLE DOSE VIAL ONE ×2 (12:15→12:31)
[2022-11-06] MEDS ORDERED: PROPOFOL 20 ML ONE (12:15)
[2022-11-06] MEDS ORDERED: LIDOCAINE HCL 1%, 10 MG/ML (20ML VIAL) INF ONE ×2 (12:31)
[2022-11-06] MEDS ORDERED: IOHEXOL 300 MG/ML INFUS..BTL IJ ONE ×2 (12:31)
[2022-11-06] MEDS ORDERED: ceFAZolin SODIUM 1 GM VIAL IVPB ONE (12:31)
[2022-11-06] MEDS ORDERED: HEPARIN NA (PORCINE) 5,000 UNITS/ML 1ML VIAL TP ONE (12:31)
[2022-11-06] MEDS ORDERED: CLOPIDOGREL BISULFATE 75 MG TABLET (FP) PO ONE (13:45)
[2022-11-06] MEDS ORDERED: CLOPIDOGREL BISULFATE 75 MG TABLET (FP) ONE (14:08)
[2022-11-06] MEDS ORDERED: ACETAMINOPHEN INJECTION 100 ML IVPB ONE (14:51)
[2022-11-06] MEDS ORDERED: ACETAMINOPHEN 1000 MG/100 ML BAG IVPB ONE (15:03)
[2022-11-06 16:15] VITALS: RESP 18
[2022-11-06 18:12] VITALS: BP 145/74; PULSE 60; TEMP 97.7
== END 2022-11-06 17:00 | disposition home or self-care (01) ==
LOC: JASU-SURG 05:03
PROVIDERS: ATTEND Surgery Vascular Surgery
PROC: 047K3Z1 Dilation of Right Femoral Artery using Drug-Coated Balloon, Percutaneous Approach (ICD-10-PCS; principal; 2022-11-06 12:30)
DX: I70.211 Atherosclerosis of native arteries of extremities with intermittent claudication, right leg (principal)
CPT/HCPCS: 37225; C2623; 76000-TC-FY; 94760; C1724; C1760; C1769; J1644

== ENCOUNTER 2022-12-20 15:30 | Inpatient (IN) | payer OTHER ==
[2022-12-20 15:37] VITALS: BMI 21.1
[2022-12-20] MEDS ORDERED: ACETAMINOPHEN 1000 MG/100 ML BAG IVPB ONE (16:12)
[2022-12-20 16:45] LABS: BASO % 0.8 % (0-2.0); EOS % 2.2 % (0-4.5); HEMATOCRIT 31.3 % (32.4-45.2); HEMOGLOBIN 10.9 GM/dL (10.7-15.3); LYMPH % 33.9 % (8-40); MCH 31.4 pg (25.7-33.7); MCHC 34.9 g/dl (32.0-36.0); MEAN CELL VOLUME 89.8 fl (80-96); MEAN PLT VOLUME 7.4 fl (7.5-11.1); MONO % 14.2 % (3.8-10.2); NEUT % 48.9 % (42.8-82.8); PLATELET COUNT 328 10^3/uL (134-434); RBC 3.48 M/mm3 (3.60-5.2); RDW 14.7 % (11.6-15.6); WHITE BLOOD COUNT 5.2 K/mm3 (4.0-10.0)
[2022-12-20] MEDS ORDERED: ACETAMINOPHEN INJECTION 100 ML IVPB ONE (16:50)
[2022-12-20 16:51] LABS: INR 0.99 (0.83-1.09); PROTHROMBIN TIME (PATIENT) 11.5 SEC (9.7-13.0)
[2022-12-20 17:18] LABS: POTASSIUM 5.7 mmol/L (3.5-5.1)
[2022-12-20 17:20] LABS: CALCIUM 8.7 mg/dL (8.5-10.1)
[2022-12-20 17:21] LABS: ALBUMIN 3.3 g/dl (3.4-5.0); BLOOD UREA NITROGEN 31.4 mg/dL (7-18)
[2022-12-20 17:24] LABS: CREATININE 1.2 mg/dL (0.55-1.3)
[2022-12-20 17:25] LABS: TOT PROT 7.8 g/dl (6.4-8.2)
[2022-12-20 17:26] LABS: BILIRUBIN,TOTAL 0.3 mg/dL (0.2-1)
[2022-12-20] MEDS ORDERED: morphine CARPU-JECT 4 MG/1 ML DISP.SYRIN IVPUSH ONE (17:39)
[2022-12-20] MEDS ORDERED: morphine SULFATE 4 MG/ML VIAL ONE (17:46)
[2022-12-20] MEDS ORDERED: FAMOTIDINE 20 MG/50 ML IVPB 20 MG/50 ML MG IVPB ONE ×2 (18:10→18:19)
[2022-12-20] MEDS ORDERED: NITROGLYCERIN 2% OINTMENT - 1GM PACKET TD ONE ×2 (18:17→18:18)
[2022-12-20] MEDS ORDERED: ASPIRIN 81 MG CHEWABLE TABLETS PO ONE (18:26)
[2022-12-20 18:39] LABS: POTASSIUM 5.3 mmol/L (3.5-5.1)
[2022-12-20 18:40] LABS: CALCIUM 8.9 mg/dL (8.5-10.1)
[2022-12-20 18:41] LABS: BLOOD UREA NITROGEN 29.7 mg/dL (7-18)
[2022-12-20 18:44] LABS: CREATININE 1.2 mg/dL (0.55-1.3)
[2022-12-20 18:59] LABS: N-TERMINAL BNP 412.5 pg/ml (5-450)
[2022-12-20] MEDS ORDERED: ASPIRIN 81 MG CHEWABLE TABLETS ONE (19:02)
[2022-12-20] MEDS ORDERED: CARVEDILOL 3.125 MG TABLET (FP) PO ONE (19:55)
[2022-12-21] MEDS ORDERED: morphine CARPU-JECT 2 MG/1 ML DISP.SYRIN IM PRN (03:07)
[2022-12-21] MEDS: ACETAMINOPHEN 1000 MG/100 ML BAG IVPB PRN ×2 (03:39→18:20)
[2022-12-21] MEDS ORDERED: SODIUM CHLORIDE 1,000 ML IV SCH (04:30)
[2022-12-21] MEDS ORDERED: HEPARIN NA (PORCINE) 5,000 UNITS/ML 1ML VIAL ONE (06:07)
[2022-12-21] MEDS: HEPARIN NA (PORCINE) 5,000 UNITS/ML 1ML VIAL SQ SCH ×3 (06:21→22:13)
[2022-12-21] MEDS ORDERED: ACETAMINOPHEN 500 MG TABLET (FP) PO PRN (07:19)
[2022-12-21] MEDS ORDERED: SODIUM CHLORIDE NASAL SPRAY 44 ML BOTTLE NS PRN (08:13)
[2022-12-21 08:54] LABS: HEMATOCRIT 28.9 % (32.4-45.2); MCHC 34.5 g/dl (32.0-36.0); MEAN CELL VOLUME 89.8 fl (80-96); MEAN PLT VOLUME 7.3 fl (7.5-11.1); PLATELET COUNT 286 10^3/uL (134-434); RBC 3.22 M/mm3 (3.60-5.2); RDW 14.3 % (11.6-15.6); WHITE BLOOD COUNT 4.7 K/mm3 (4.0-10.0)
[2022-12-21 09:03] LABS: POTASSIUM 4.4 mmol/L (3.5-5.1)
[2022-12-21 09:14] LABS: CALCIUM 8.3 mg/dL (8.5-10.1)
[2022-12-21 09:16] LABS: ALBUMIN 3.1 g/dl (3.4-5.0); BLOOD UREA NITROGEN 28.9 mg/dL (7-18); MAGNESIUM 2.3 mg/dL (1.8-2.4)
[2022-12-21 09:17] LABS: PHOSPHOROUS 4.2 mg/dL (2.5-4.9)
[2022-12-21 09:18] LABS: CREATININE 1.2 mg/dL (0.55-1.3)
[2022-12-21 09:19] LABS: BILIRUBIN,TOTAL 0.2 mg/dL (0.2-1); TOT PROT 6.9 g/dl (6.4-8.2)
[2022-12-21] MEDS ORDERED: LISINOPRIL 5 MG TABLET PO SCH (10:00)
[2022-12-21] MEDS ORDERED: ATAZANAVIR SULFATE/COBICISTAT (EVOTAZ) TABLET PO SCH (10:00)
[2022-12-21] MEDS: ASPIRIN COATED 81 MG TABLET.EC PO SCH (10:05)
[2022-12-21] MEDS: CLOPIDOGREL BISULFATE 75 MG TABLET (FP) PO SCH (10:05)
[2022-12-21] MEDS: NICOTINE 21 MG/24 HOURS TOPICAL PATCH TD SCH (10:05)
[2022-12-21] MEDS: DOLUTEGRAVIR SODIUM 50 MG TABLET (NON-FORMULARY) PO SCH (10:06)
[2022-12-21] MEDS: GABAPENTIN 300 MG CAPSULE PO SCH ×2 (13:05→22:11)
[2022-12-21] MEDS ORDERED: GABAPENTIN 300 MG CAPSULE ONE (13:06)
[2022-12-21 16:29] VITALS: RESP 18
[2022-12-21] MEDS ORDERED: ATORVASTATIN CA 20 MG TABLET (FP) PO SCH (22:00)
[2022-12-21] MEDS: CARVEDILOL 3.125 MG TABLET (FP) PO SCH (22:14)
[2022-12-22] MEDS: GABAPENTIN 300 MG CAPSULE PO SCH (06:34)
[2022-12-22] MEDS: HEPARIN NA (PORCINE) 5,000 UNITS/ML 1ML VIAL SQ SCH (06:34)
[2022-12-22 10:26] VITALS: BP 157/87; PULSE 84; TEMP 98.8
[2022-12-22] MEDS: NICOTINE 21 MG/24 HOURS TOPICAL PATCH TD SCH (10:35)
[2022-12-22] MEDS: CLOPIDOGREL BISULFATE 75 MG TABLET (FP) PO SCH (10:35)
[2022-12-22] MEDS: DOLUTEGRAVIR SODIUM 50 MG TABLET (NON-FORMULARY) PO SCH ×2 (10:35→10:40)
[2022-12-22] MEDS: CARVEDILOL 3.125 MG TABLET (FP) PO SCH (10:35)
[2022-12-22] MEDS: ASPIRIN COATED 81 MG TABLET.EC PO SCH (10:36)
== END 2022-12-22 12:47 | disposition left against medical advice (07) | DRG 301 ==
LOC: JER 15:30 → JERBED 21:27 → J4W 12-21 14:47
PROVIDERS: ADMIT Internal Medicine; ATTEND Student in an Organized Health Care Education/Training Program
DX: I70.222 Atherosclerosis of native arteries of extremities with rest pain, left leg (principal); I25.10 Atherosclerotic heart disease of native coronary artery without angina pectoris; K59.00 Constipation, unspecified; Z21 Asymptomatic human immunodeficiency virus [HIV] infection status; R07.89 Other chest pain; N18.9 Chronic kidney disease, unspecified; E04.9 Nontoxic goiter, unspecified; D64.9 Anemia, unspecified; I25.2 Old myocardial infarction; M54.9 Dorsalgia, unspecified; J44.9 Chronic obstructive pulmonary disease, unspecified; I12.9 Hypertensive chronic kidney disease with stage 1 through stage 4 chronic kidney disease, or unspecified chronic kidney disease; Z95.1 Presence of aortocoronary bypass graft; Z95.5 Presence of coronary angioplasty implant and graft
CPT/HCPCS: 36415; 71045-TC-FY; 71250-TC; 75635-TC; 80048; 80053; 82550; 82728; 83540; 83550; 83735; 83880; 84100; 84484; 85025; 85027; 85045; 85610; 85730; 87635; 93005; 93010; 99285-25; J1644; Q9967

== ENCOUNTER 2023-12-07 11:07 | Emergency (ER) | payer OTHER ==
[2023-12-07 11:12] VITALS: BMI 20.2
[2023-12-07 14:03] VITALS: BP 140/73; PULSE 71; RESP 20; TEMP 98
== END 2023-12-07 14:03 | disposition home or self-care (01) ==
LOC: JERFT 11:07
DX: S99.922A Unspecified injury of left foot, initial encounter (principal); W01.0XXA Fall on same level from slipping, tripping and stumbling without subsequent striking against object, initial encounter
CPT/HCPCS: 73610-TC-LT-FY; 73630-TC-LT; 99283-25